=== PATIENT | female | born 1965 | race Caucasian/White ===

== ENCOUNTER → 2021-12-20 14:55 | Outpatient (CLI) | payer BC, SELFPAY ==
--- NOTE | 2021-12-20 15:00 | XR_ITS ---
FINAL REPORT CLINICAL HISTORY: R Foot pain, lateral side starting at calcaneus radiating upward toward tibia. FINDINGS: RIGHT FOOT Three views of the right foot demonstrate no acute fracture or dislocation. There is mild degenerative change. There are calcaneal spurs. The soft tissues are unremarkable. IMPRESSION: Degenerative change with no acute bony abnormality. Reviewed, Interpreted and Dictated by Chriss Issa III, MD Transcribed by Nikki Peterson Authenticated and [facility]
--- NOTE | 2021-12-20 15:00 | XR_ITS ---
FINAL REPORT CLINICAL HISTORY: R Foot pain, lateral side starting at calcaneus radiating upward toward tibia. FINDINGS: RIGHT ANKLE Three views of the right ankle were obtained. There is no acute fracture or dislocation. There is mild degenerative change. There is a chronic calcification inferior to the medial malleolus. There are calcaneal spurs. IMPRESSION: Degenerative change with no acute bony abnormality. Reviewed, Interpreted and Dictated by Chriss Issa III, MD Transcribed by Nikki Peterson Authenticated and [facility]
== END ==
PROVIDERS: PCP Family Medicine; Visit Provider Nurse Practitioner Family
DX: M79.671 Pain in right foot (principal); M25.571 Pain in right ankle and joints of right foot
CPT/HCPCS: 73610; 73630

== ENCOUNTER → 2022-03-22 17:08 | Outpatient (CLI) | payer BC, SELFPAY ==
[2022-03-22 16:01] LABS: MANUAL DIFFERENTIAL MANUAL DIFFERENTIAL (MANUAL DIFF)
[2022-03-22 16:12] LABS: Basophils # 0.1 K/mm3 (0-0.2); Basophils % 0.9 % (0.1-2.0); Eosinophils # 0.2 K/mm3 (0.0-0.4); Eosinophils % 2.9 % (0.1-12.0); Hematocrit 36.2 % (37.0-47.0); Hemoglobin 11.8 g/dL (12.2-16.2); Lymphocytes # 2.1 K/mm3 (0.7-4.5); Lymphocytes % 37.2 % (10-50); Mean Corpuscular HGB Conc 32.6 g/dL (31.8-35.4); Mean Corpuscular Hemoglobin 25.2 pg (27.0-31.2); Mean Corpuscular Volume 77.5 fl (81-99); Mean Platelet Volume 9.4 fl (7.4-10.4); Monocytes # 0.3 K/mm3 (0.1-1.0); Monocytes % 5.5 % (1.7-9.3); Neutrophils # 3.1 K/mm3 (1.8-7.8); Neutrophils % 53.6 % (37.0-80.0); Platelet Count 338 K/mm3 (142-424); Red Blood Count 4.67 M/mm3 (4.20-5.40); Red Cell Distribution Width 15.3 % (11.5-17.5); White Blood Count 5.7 K/mm3 (4.8-10.8)
[2022-03-22 16:32] LABS: Potassium 4.2 mmoL/L (3.5-5.1)
[2022-03-22 16:34] LABS: Alanine Aminotransferase 37 U/L (12-78); Alkaline Phosphatase 78 U/L (38-126); Aspartate Amino Transferase 39 U/L (14-36); Bilirubin,Total 0.2 mg/dl (0.2-1.3); Blood Urea Nitrogen 12 mg/dl (7-17); Carbon Dioxide 29 mmol/L (22.0-30.0); Cholesterol 170 mg/dl (140-200); Estimated Glomerular Filt Rate 86 ml/min (>60); GFR (African American) 104 ML/MIN (>60); Triglycerides 108 mg/dl (30-150); VLDL Cholesterol 22 mg/dL (0-40)
[2022-03-22 16:35] LABS: Albumin Level 4.5 g/dl (3.5-5.0); Albumin/Globulin Ratio 1.9 (1.1-1.8); Calcium 8.8 mg/dl (8.4-10.2); Chol/HDL Ratio 3.1 (1-3.5); Globulin 2.4 g/dL (1.3-3.2); Glucose 110 mg/dl (74-100); HDL Cholesterol 55 mg/dl (40-60); Total Protein,Serum 6.9 g/dl (6.3-8.2)
[2022-03-22 16:46] LABS: Direct LDL Cholesterol 89.36 mg/dL (100-129)
[2022-03-22 17:50] LABS: Anion Gap 11.2 mEq/L (5-15); Chloride 104 mmol/L (98-107); Sodium 140 mmol/L (136-145)
[2022-03-22 19:32] LABS: Eosinophils % 1 % (0-3); Lymphocytes % 42 % (10-50); Microcytosis 1+; Monocytes % 3 % (2-9); Neutrophils % 54 % (42-76); Total Cells Counted 100
[2022-03-22 19:33] LABS: Burr Cells 1+; Ovalocytes 1+
[2022-03-22 19:34] LABS: Platelet Estimate Normal
== END ==
PROVIDERS: PCP Family Medicine; Visit Provider Family Medicine
DX: E78.5 Hyperlipidemia, unspecified (principal); R73.03 Prediabetes
CPT/HCPCS: 80053; 80061; 83036; 84443; 85007; 85014; 85018; 85048; 85049

== ENCOUNTER → 2022-05-25 11:17 | Outpatient (CLI) | payer BC, SELFPAY ==
--- NOTE | 2022-05-25 11:23 | XR_ITS ---
FINAL REPORT TECHNIQUE: Chest PA & Lateral CLINICAL HISTORY: lingering cough FINDINGS: 2 views of the chest were performed. The heart size is normal. The mediastinum is within normal limits. There is no acute cardiopulmonary process. There are no pleural effusions. There is no pneumothorax. The bony thorax appears intact. IMPRESSION: No acute cardiopulmonary process. Reviewed, Interpreted and Dictated by Stu Joyner MD Transcribed by JANELL Solis Authenticated and . [facility]
== END ==
PROVIDERS: PCP Family Medicine; Visit Provider Student in an Organized Health Care Education/Training Program
DX: R05.9 Cough, unspecified (principal)
CPT/HCPCS: 71046

== ENCOUNTER 2022-06-26 08:23 | Day surgery (SDC) | payer BC, SELFPAY ==
[2022-06-25 14:12] VITALS: BMI 35.2
[2022-06-26 08:45] VITALS: BP 147/64; PULSE 80; RESP 16; TEMP 36.1; O2SAT 99
--- NOTE | 2022-06-26 08:55 | P.PCN_ITS ---
Procedure: Date: 06/26/22 Patient Date of :: 1965 Procedure Performed:: Colonoscopy with polypectomy Indications:: History of colon polyps Performing Provider:: Kasi Low MD Referring Provider:: . Sedation:: Monitored anesthesia care Procedure:: After informed consent was obtained the patient was taken to the endoscopy suite. Sedation ensued after the patient was transferred to the left lateral d ecubitus position. Pulse, blood pressure, and oxygen saturation were monitored throughout the procedure. Digital rectal exam revealed no significant abnormality. The colonoscope was placed in position. The entire colon was evaluated. The colonoscope was carefully removed and the patient was transferred to recovery in stable condition. Please see findings and specimens below for detail. Findings:: Bowel preparation fair to moderate Significant tortuosity (particularly sigmoid) Profound lack of relaxation Mild scattered diverticulosis Polyps (see specimens) Specimens:: Adjacent periappendiceal polyps (cold biopsy forceps) Transverse colon polyp (cold snare) Recommendations:: Timing of repeat colonoscopy is pending pathology but will likely be between 2-3 years. Complications:: No immediate Estimated blood obtained (mL): 1
[2022-06-26 09:00] LABS: POC Glucose,Bedside 101 (70-110)
[2022-06-26 09:05] VITALS: O2SAT 99
--- NOTE | 2022-06-26 09:06 | P.PN_ITS ---
[facility] Disclaimer: The information contained in this section may have been updated after the patient was seen, as this information can be updated by other users. Medical History Hyperlipidemia Hypertension Surgical History History of bilateral breast reduction surgery History of cholecystectomy History of hysterectomy Family History Father Family history of myocardial infarction Social History Smoking Status: Former smoker alcohol intake: former substance use type: denies use current occupational status: employed Travel in the last 8 weeks: None [facility] Anesthesia Checklist Patient Identification Patient Identification: Arm Band Structural Data Admitted From: Home Planned Operative Procedure/s: Colonoscopy Consent for Planned Operative Procedure(s) Verified: Yes Verified Documents: Surgical Consent and History and Physical NPO Status Verified Time NPO: 00:00 Additional verifications Anesthesia Reactions: No Airway Assessment C-Spine Mobility Assessed: Yes TMJ Mobility Assessed: Yes Dentition: Good Dentition Neurological Assessment Level of Consciousness: Awake and Alert Anesthesia Plan Anesthesia Risk discussed: Yes Anesthesia Plan: Verified ASA Class: II Anesthesia Type: MAC
[2022-06-26 09:58] VITALS: BP 113/73; PULSE 82; RESP 16; TEMP 36.1; O2SAT 97
[2022-06-26 10:08] VITALS: BP 127/69; PULSE 76; RESP 17; O2SAT 100
[2022-06-26 10:18] VITALS: BP 130/69; PULSE 70; RESP 16; O2SAT 100
[2022-06-26 10:33] VITALS: BP 130/69; PULSE 70; RESP 16; O2SAT 100
== END 2022-06-26 10:33 | disposition home or self-care (01) ==
PROVIDERS: PCP Family Medicine; Visit Provider Surgery
PROC: 0DJD8ZZ Inspection of Lower Intestinal Tract, Via Natural or Artificial Opening Endoscopic (ICD-10-PCS; CPT 45385; principal; 2022-06-26 09:30)
DX: Z12.11 Encounter for screening for malignant neoplasm of colon (principal); D12.0 Benign neoplasm of cecum; Z86.010 Personal history of colon polyps; K57.90 Diverticulosis of intestine, part unspecified, without perforation or abscess without bleeding; Z79.899 Other long term (current) drug therapy
CPT/HCPCS: 45385; 45380; 82962; 88305; J2704

== ENCOUNTER → 2023-04-29 11:56 | Outpatient (CLI) | payer BC, SELFPAY ==
[2023-04-29 19:07] LABS: Alanine Aminotransferase 50 U/L (12-78); Albumin Level 4.3 g/dl (3.5-5.0); Alkaline Phosphatase 69 U/L (38-126); Anion Gap 14.1 mEq/L (5-15); Aspartate Amino Transferase 36 U/L (14-36); Bilirubin,Total 0.3 mg/dl (0.2-1.3); Blood Urea Nitrogen 12 mg/dl (7-17); Calcium 9.1 mg/dl (8.4-10.2); Carbon Dioxide 28 mmol/L (22.0-30.0); Chloride 101 mmol/L (98-107); Chol/HDL Ratio 4.4 (1-3.5); Cholesterol 136 mg/dl (140-200); Estimated Glomerular Filt Rate 64 ml/min (>60); GFR (African American) 78 ML/MIN (>60); Globulin 2.2 g/dL (1.3-3.2); Glucose 93 mg/dl (74-100); HDL Cholesterol 31 mg/dl (40-60); Potassium 4.1 mmoL/L (3.5-5.1); Sodium 139 mmol/L (136-145); Total Protein,Serum 6.5 g/dl (6.3-8.2); Triglycerides 151 mg/dl (30-150); VLDL Cholesterol 30 mg/dL (0-40)
[2023-04-29 19:16] LABS: Hemoglobin A1C 5.8 % (4.0-6.0)
[2023-04-29 19:38] LABS: Basophils % 0.4 % (0.1-2.0); Eosinophils # 0.2 K/mm3 (0.0-0.4); Eosinophils % 2.2 % (0.1-12.0); Hematocrit 37.8 % (37.0-47.0); Hemoglobin 12.6 g/dL (12.2-16.2); Lymphocytes # 2.2 K/mm3 (0.7-4.5); Lymphocytes % 33.3 % (10-50); Mean Corpuscular HGB Conc 33.3 g/dL (31.8-35.4); Mean Corpuscular Hemoglobin 26.5 pg (27.0-31.2); Mean Corpuscular Volume 79.7 fl (81-99); Mean Platelet Volume 9.9 fl (7.4-10.4); Monocytes # 0.3 K/mm3 (0.1-1.0); Monocytes % 4.8 % (1.7-9.3); Neutrophils % 59.4 % (37.0-80.0); Platelet Count 283 K/mm3 (142-424); Red Blood Count 4.74 M/mm3 (4.20-5.40); Red Cell Distribution Width 14.7 % (11.5-17.5); White Blood Count 6.7 K/mm3 (4.8-10.8)
[2023-04-29 20:18] LABS: Direct LDL Cholesterol 84.44 mg/dL (100-129)
== END ==
PROVIDERS: PCP Family Medicine; Visit Provider Family Medicine
DX: E11.9 Type 2 diabetes mellitus without complications (principal); Z79.84 Long term (current) use of oral hypoglycemic drugs; Z79.899 Other long term (current) drug therapy
CPT/HCPCS: 80053; 80061; 83036; 85025

== ENCOUNTER 2023-08-29 13:05 | Outpatient (CLI) | payer BC, SELFPAY ==
[2023-08-29 13:12] VITALS: BMI 27.9
[2023-08-29 13:17] VITALS: BP 132/92; PULSE 70; RESP 18; TEMP 36.7; O2SAT 100
[2023-08-29] MEDS: 0.9 % SODIUM CHLORIDE 1000ML 1,000 ML 999 ML IV ×2 (13:17→14:29)
[2023-08-29] MEDS: SODIUM CHLORIDE 0.9% 10ML FLUSH SYRINGE 10 ML IV (13:25)
[2023-08-29 13:41] LABS: Alanine Aminotransferase 80 U/L (12-78); Albumin Level 4.5 g/dl (3.5-5.0); Albumin/Globulin Ratio 1.8 (1.1-1.8); Alkaline Phosphatase 74 U/L (38-126); Anion Gap 9.5 mEq/L (5-15); Aspartate Amino Transferase 33 U/L (14-36); Bilirubin,Total 0.6 mg/dl (0.2-1.3); Blood Urea Nitrogen 11 mg/dl (7-17); Calcium 9.4 mg/dl (8.4-10.2); Carbon Dioxide 31 mmol/L (22.0-30.0); Chloride 102 mmol/L (98-107); Creatinine Clearance Estimated 90 mL/min (50-200); Estimated Glomerular Filt Rate 64 ml/min (>60); GFR (African American) 78 ML/MIN (>60); Globulin 2.5 g/dL (1.3-3.2); Glucose 85 mg/dl (74-100); Potassium 3.5 mmoL/L (3.5-5.1); Sodium 139 mmol/L (136-145)
[2023-08-29 14:29] VITALS: BP 128/89; PULSE 71; RESP 18; O2SAT 99
[2023-08-29 15:32] VITALS: BP 122/87; PULSE 72; RESP 18; O2SAT 100
== END 2023-08-29 15:32 | disposition home or self-care (01) ==
LOC: INF 13:07
PROVIDERS: PCP Family Medicine; Visit Provider Family Medicine
DX: E86.0 Dehydration; R11.10 Vomiting, unspecified
CPT/HCPCS: 80053; 96360; 96361

== ENCOUNTER 2023-10-11 07:54 | Outpatient (CLI) | payer BC, SELFPAY ==
--- NOTE | 2023-10-11 08:27 | MR_ITS ---
FINAL REPORT CLINICAL HISTORY: Dileneate Adrenal LEFT 17 ML PROHANCE FINDINGS: Multiplanar MR imaging of the abdomen was performed without and with contrast. Images of the liver reveal no evidence of mass. There is no evidence of biliary ductal dilatation. The patient is status post cholecystectomy. The adrenal glands are visualized and have an unremarkable appearance. No adrenal mass is seen. No other mass or adenopathy is identified. No abnormal fluid collection is seen. No abnormal contrast enhancement is seen on the postcontrast images. IMPRESSION: No mass or abnormal contrast enhancement identified. Adrenal glands are identified and have an unremarkable appearance. Reviewed, Interpreted and Dictated by Chirss Issa III, MD Transcribed by Rhonda Kaufman Authenticated and [facility]
[2023-10-11 08:35] LABS: Blood Urea Nitrogen 13 mg/dl (7-17); Estimated Glomerular Filt Rate 64 ml/min (>60); GFR (African American) 78 ML/MIN (>60)
[2023-10-11] MEDS: GADOTERIDOL INJ 17ML SYRINGE 17 ML IV (09:40)
[2023-10-11] MEDS: 0.9 % SODIUM CHLORIDE 50 ML VIAL 20 ML IV (09:40)
[2023-10-11] MEDS: SODIUM CHLORIDE 0.9% 10ML SYR (RAD ONLY) 10 ML IV (09:40)
== END 2023-10-11 23:59 ==
LOC: RAD 07:55
PROVIDERS: PCP Family Medicine; Visit Provider Family Medicine
DX: R10.9 Unspecified abdominal pain (principal); E27.9 Disorder of adrenal gland, unspecified
CPT/HCPCS: 36415; 74183; 82565; 84520; A9576

== ENCOUNTER 2023-12-15 14:50 | Emergency (ER) | payer BC, SELFPAY ==
[2023-12-15 16:30] VITALS: BP 152/75; PULSE 65; RESP 18; TEMP 36.5; O2SAT 100; BMI 26.9
--- NOTE | 2023-12-15 16:44 | ED_ITS ---
Discharge Plan Disposition Patient Disposition: Home, Self-Care Condition: Good Prescriptions Prescriptions: No Action methocarbamol 750 mg tablet 750 mg PO TID Qty: 90 10RF Ozempic 2 mg/dose (8 mg/3 mL) pen injector 2 mg SQ DAILY Patient Comments: Inject 2 mg under the skin once a week. (DME) lancets [OneTouch Delica Plus Lancet] 33 gauge misc See Rx Instructions .ROUTE .MEDSUPPLY Qty: 100 Rx Instructions: As directed (DME) OneTouch Verio test strips Strip See Rx Instructions .ROUTE .MEDSUPPLY Qty: 10 Rx Instructions: As directed spironolactone 25 mg tablet 25 mg PO DAILY ondansetron HCl 4 mg tablet 4 mg PO TID PRN (Reason: nausea and vomiting) Qty: 90 3RF valacyclovir [Valtrex] 1 gram tablet 1,000 mg PO BID Qty: 60 2RF atorvastatin [Lipitor] 20 mg tablet 20 mg PO DAILY Qty: 90 1RF losartan 100 mg tablet See Rx Instructions .ROUTE .COMPLEX Qty: 90 3RF Dose Instruction: TAKE 1 TABLET DAILY Rx Instructions: TAKE 1 TABLET DAILY amlodipine 10 mg tablet See Rx Instructions .ROUTE .COMPLEX Qty: 90 3RF Dose Instruction: TAKE 1 TABLET DAILY Rx Instructions: TAKE 1 TABLET DAILY pantoprazole [Protonix] 40 mg tablet,delayed release (DR/EC) 40 mg PO BID Qty: 60 3RF prochlorperazine maleate [Compazine] 10 mg tablet 10 mg PO TID PRN (Reason: nausea and vomiting) Qty: 60 0RF duloxetine [Cymbalta] 60 mg capsule,delayed release(DR/EC) 60 mg PO DAILY Qty: 90 0RF metformin 500 mg tablet 500 mg PO BID trazodone 150 mg tablet 150 mg PO DAILY omeprazole 20 mg capsule,delayed release(DR/EC) 20 mg PO DAILY Referrals Follow up/Referrals: Tony Roberts MD [Primary Care Provider] - See instructions Activity Restrictions/Add. Instructions Additional Instructions/Restrictions: Monitor temperature. Seek treatment if fever develops. Follow-up immediately if new or worse symptoms worsen or no noticeable improvement over 48 hours. Increase fluids such as water, Gatorade, Powerade, juice or Pedialyte with limited formula/dietary in children No food is okay as long as you are drinking. Once ready to eat start bland such as bananas, rice, applesauce, toast. Contagious until no diarrhea, vomiting, fever times 48 hours without medication Avoid antidiarrheals unless told otherwise. Best to let the virus run its course. Follow-up immediately for new or worsening symptoms or no noticeable improvement over the next 48 hours. follow up with pcp Clinical Impressions Clinical Impression: Abdominal pain, Dehydration Instructions Patient Instructions: Nausea and Vomiting-Adult, Diarrhea Discharge ED Provider: Pebbles ([facility] [place] HPI General Stated complaint: vomiting, abd pain Mode of Arrival: Ambulatory Source of Information: Patient Limitations: No Limitations Time Seen by Provider: 12/15/23 16:44 Description of Symptoms (Recalled from Triage Doc. by RN): Pt's symptoms are diarrhea, n/v, fatigue, and no appetite. HEENT Symptoms (Recalled from RN notes): No Resp Symptoms (Recalled from RN notes): No Skin Symptoms (Recalled from RN notes): No MS Symptoms (Recalled from RN notes): No Functional Status (Recalled from RN notes): n/a History of Present Illness Provider Complaint: 58 yr old female presents for c/o diarrhea, n/v, fatigue, and no appetite for 10 days. pt states she has been able to keep very little down. has been exposed to c diff Related Data Home Medications Medication Instructions Recorded Confirmed metformin 500 mg tablet 500 mg PO BID Diabetes 06/25/22 11/06/23 omeprazole 20 mg capsule,delayed 20 mg PO DAILY GERD 06/25/22 11/06/23 release trazodone 150 mg tablet 150 mg PO DAILY sleep 06/25/22 11/06/23 blood sugar diagnostic (OneTouch #10 ea 04/29/23 11/06/23 Verio test strips) lancets 33 gauge (OneTouch Delica #100 ea 04/29/23 11/06/23 Plus Lancet) semaglutide 2 mg/dose (8 mg/3 mL) 2 mg SQ DAILY Diabetes 04/29/23 11/06/23 subcutaneous pen injector (Ozempic) spironolactone 25 mg tablet 25 mg PO DAILY blood pressure 04/29/23 11/06/23 Previous Rx's Medication Instructions Recorded methocarbamol 750 mg tablet 750 mg PO TID #90 tabs 11/12/22 ondansetron HCl 4 mg tablet 4 mg PO TID PRN nausea and 04/29/23 vomiting #90 tabs valacyclovir 1 gram tablet 1,000 mg PO BID #60 tabs 04/29/23 (Valtrex) amlodipine 10 mg tablet See Rx Instructions .Route 08/07/23 .COMPLEX #90 tabs losartan 100 mg tablet See Rx Instructions .Route 08/07/23 .COMPLEX #90 tabs pantoprazole 40 mg tablet,delayed 40 mg PO BID #60 tabs 08/30/23 release (Protonix) prochlorperazine maleate 10 mg 10 mg PO TID PRN nausea and 08/30/23 tablet (Compazine) vomiting #60 tabs atorvastatin 20 mg tablet (Lipitor) 20 mg PO DAILY hld #90 tabs 11/06/23 duloxetine 60 mg capsule,delayed 60 mg PO DAILY mood #90 caps 12/10/23 release (Cymbalta) Allergies Allergy/AdvReac Type Severity Reaction Status Date / Time No Known Allergies Allergy Verified 12/15/23 16:41 Worker's Comp Is this a Worker's Comp case?: No [facility] Disclaimer: The information contained in this section may have been updated after the patient was seen, as this information can be updated by other users. 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) Smoking Status: Former smoker alcohol intake: former substance use type: denies use current occupational status: employed Travel in the last 8 weeks: Inside the [place] ROS Obtained: Yes All systems reviewed & no additional complaints except as documented Constitutional Constitutional: Reports system reviewed and no additional complaints, except as documented, Reports as per HPI and Reports anorexia Eyes Eyes: Reports system reviewed and no additional complaints, except as documented ENT Ears, Nose, Mouth, and Throat: Reports system reviewed and no additional complaints, except as documented Cardiovascular Cardiovascular: Reports system reviewed and no additional complaints, except as documented Respiratory Respiratory: Reports system reviewed and no additional complaints, except as documented Gastrointestinal Gastrointestingal: Reports system reviewed and no additional complaints, except as documented, as per HPI, change in bowel habits, diarrhea, nausea and vomiting Musculoskeletal Musculoskeletal: Reports system reviewed and no additional complaints, except as documented Integumentary/Breasts Skin/Breast: Reports system reviewed and no additional complaints, except as documented Neurologic Neurologic: Reports system reviewed and no additional complaints, except as documented Endocrine Endocrine: Reports system reviewed and no additional complaints, except as documented Hematologic/Lymphatic Henatologic/Lymphatic: Reports system reviewed and no additional complaints, except as documented Allergic/Immunologic Allergic/Immunologic: Reports system reviewed and no additional complaints, except as documented Physical Exam General General appearance: alert and in no apparent distress Eye Eye exam: Present normal appearance and PERRL ENT ENT exam: Present normal exam, normal oropharynx, mucous membranes moist and TM's normal bilaterally Chest Chest inspection: Present normal inspection Respiratory Respiratory exam: Present normal lung sounds bilaterally Cardiovascular Cardiovascular exam: Present regular rate and normal rhythm Abdominal Exam Abdominal exam: Present soft and normal bowel sounds; Absent distention, tenderness, guarding or rebound Neurological Exam Neurological exam: Present alert and oriented X3 Skin Skin exam: Present warm and intact Medical Decision Making Medical Records Medical records reviewed: Yes I reviewed the patient's medical records. Joseph Inquiry Pt receiving controlled substance: No Joseph was queried for this patient: No Vital Signs: 12/15/23 16:30 Temperature 97.7 F Temperature Source Oral Pulse Rate [Right Radial] 65 Respiratory Rate 18 Blood Pressure [Right Arm] 152/75 H Blood Pressure Mean [Right Arm] 100 Blood Pressure Source [Right Arm] Automatic Cuff Blood Pressure Position [Right Arm] Sitting 02 Sat by Pulse Oximetry 100 Oxygen Delivery Method Room Air Lab Data 12/15/23 16:40 12/15/23 16:40 Orders (Tests/Meds): ORDERS Category Date Time Status CBC w/Auto Diff [Complete Blood Count Auto Diff] Stat Lab 12/15/23 16:40 Ordered CMP [Comprehensive Metabolic Panel] Stat Lab 12/15/23 16:40 Ordered Diarrhea 23 Panel, PCR Stat Lab 12/15/23 16:40 Ordered
[2023-12-15 16:58] LABS: Basophils # 0.1 K/mm3 (0-0.2); Basophils % 1.1 % (0.1-2.0); Eosinophils # 0.2 K/mm3 (0.0-0.4); Eosinophils % 2.6 % (0.1-12.0); Hematocrit 38.2 % (37.0-47.0); Hemoglobin 12.8 g/dL (12.2-16.2); Lymphocytes # 2.2 K/mm3 (0.7-4.5); Lymphocytes % 32.4 % (10-50); Mean Corpuscular HGB Conc 33.6 g/dL (31.8-35.4); Mean Corpuscular Hemoglobin 26.6 pg (27.0-31.2); Mean Corpuscular Volume 79.3 fl (81-99); Mean Platelet Volume 8.7 fl (7.4-10.4); Monocytes # 0.4 K/mm3 (0.1-1.0); Monocytes % 5.7 % (1.7-9.3); Neutrophils % 58.2 % (37.0-80.0); Platelet Count 265 K/mm3 (142-424); Red Blood Count 4.82 M/mm3 (4.20-5.40); Red Cell Distribution Width 14.5 % (11.5-17.5); White Blood Count 6.8 K/mm3 (4.8-10.8)
[2023-12-15] MEDS: SODIUM CHLORIDE 0.9% 10ML FLUSH SYRINGE 10 ML IV (17:00)
[2023-12-15] MEDS: 0.9 % SODIUM CHLORIDE 1000ML 1,000 ML 999 ML IV (17:00)
[2023-12-15 17:02] LABS: Chloride 100 mmol/L (98-107); Potassium 3.9 mmoL/L (3.5-5.1); Sodium 136 mmol/L (136-145)
[2023-12-15] MEDS: ONDANSETRON 4MG/2ML VIAL 4 MG IV (17:02)
[2023-12-15 17:04] LABS: Alanine Aminotransferase 245 U/L (12-78); Aspartate Amino Transferase 95 U/L (14-36); Blood Urea Nitrogen 13 mg/dl (7-17); Creatinine Clearance Estimated 70 mL/min (50-200); Estimated Glomerular Filt Rate 51 ml/min (>60); GFR (African American) 62 ML/MIN (>60)
[2023-12-15 17:04] LABS: Adenovirus F 40/41, stool Not Detected (NotDetected); Astrovirus Not Detected (NotDetected); Campylobacter Not Detected (NotDetected); Clostridium Difficile A/B, PCR Not Detected (NotDetected); Cryptosporidium Not Detected (NotDetected); Cyclospora Cayetanesis Not Detected (NotDetected); Entamoeba histolytica Not Detected (NotDetected); Enteroaggregative E coli Not Detected (NotDetected); Enteropathogenic E coli Not Detected (NotDetected); Enterotoxigenic E coli Not Detected (NotDetected); Giardia lamblia Not Detected (NotDetected); Norovirus Not Detected (NotDetected); Plesimonas Shigalloides, PCR Not Detected (NotDetected); Rotavirus A Not Detected (NotDetected); Salmonella, PCR Not Detected (NotDetected); Sapovirus Not Detected (NotDetected); Shiga-like toxin E coli Not Detected (NotDetected); Shigella Enterovasive E coli Not Detected (NotDetected); Vibrio Cholerae Not Detected (NotDetected); Vibrio, PCR Not Detected (NotDetected); Yersinia Entercolitica, PCR Not Detected (NotDetected)
[2023-12-15 17:05] LABS: Albumin Level 4.2 g/dl (3.5-5.0); Albumin/Globulin Ratio 1.6 (1.1-1.8); Alkaline Phosphatase 133 U/L (38-126); Anion Gap 8.9 mEq/L (5-15); Bilirubin,Total 0.5 mg/dl (0.2-1.3); Calcium 9.4 mg/dl (8.4-10.2); Carbon Dioxide 31 mmol/L (22.0-30.0); Globulin 2.7 g/dL (1.3-3.2); Glucose 91 mg/dl (74-100); Total Protein,Serum 6.9 g/dl (6.3-8.2)
[2023-12-15 18:34] VITALS: BP 152/75; PULSE 65; RESP 18; TEMP 36.5; O2SAT 100
== END 2023-12-15 18:44 | disposition home or self-care (01) ==
PROVIDERS: Emergency Provider Nurse Practitioner Family; PCP Family Medicine
DX: R10.84 Generalized abdominal pain (principal); E86.0 Dehydration; R11.2 Nausea with vomiting, unspecified; R19.7 Diarrhea, unspecified; R53.83 Other fatigue
CPT/HCPCS: 80053; 85025; 87507; 96360; 96374; 99204; 99212; G0463; J2405

== ENCOUNTER 2023-12-17 09:17 | Outpatient (CLI) | payer BC, SELFPAY ==
[2023-12-17 18:48] LABS: Chloride 99 mmol/L (98-107); Potassium 4.3 mmoL/L (3.5-5.1)
[2023-12-17 18:52] LABS: Glucose 90 mg/dl (74-100)
[2023-12-17 18:53] LABS: Anion Gap 11.3 mEq/L (5-15); Blood Urea Nitrogen 11 mg/dl (7-17); Calcium 9.3 mg/dl (8.4-10.2); Carbon Dioxide 31 mmol/L (22.0-30.0); Estimated Glomerular Filt Rate 64 ml/min (>60); GFR (African American) 78 ML/MIN (>60); Sodium 137 mmol/L (136-145)
[2023-12-19 10:13] LABS: HBsAg Screen Negative (Negative); HCV Ab Non Reactive (Non Reactive); Hep A Ab, IGM Negative (Negative); Hep B Core Ab, IgM Negative (Negative)
== END 2023-12-17 23:59 | disposition home or self-care (01) ==
LOC: LAB.DROPOF 12-18 09:17
PROVIDERS: PCP Nurse Practitioner; Visit Provider Nurse Practitioner
DX: R11.2 Nausea with vomiting, unspecified (principal); R79.89 Other specified abnormal findings of blood chemistry
CPT/HCPCS: 80048; 80074

== ENCOUNTER 2025-05-09 19:01 | Emergency (ER) | payer BC, SELFPAY ==
--- OUTSIDE RECORDS SUMMARY | 2025-03-10 09:30 | XMS_ITS | Encounter Summary ---
Author Organization [facility] Address [address] [place] [phone] Care Team Providers Care Vest Busheler Name Role Phone Tony Roberts MD Primary Care Provider [phone] Reason for Referral * Physical Therapy (Routine) - Pending Review Specialty Diagnoses / Procedures Referred By Cornelia ambriz Referred To Contact Physical Therapy Diagnoses Dizziness Joseph Mccoy MD [address] [place] [address] [facility] [place] [address] Phone: tel: fax: Cory Overton PT Referral ID Status Reason Start Date Expiration Date V isits Requested Visits Authorized [id number] Pending Review 03/10/2025 03/10/2026 1 1 Question Answer Reason for Physical Therapy Evaluate and Treat * MRI/CAT Scan (Routine) - Closed Specialty Diagnoses / Procedures Referred By Contac t Referred To Contact Radiology Diagnoses Mixed conductive and sensorineural hearing loss of right ear with restricted hearing of left ear Procedures CT TEMPORAL BONES IACS WO CONTRAST Joseph Mccoy MD [address] [place] [address] [facility] [place] [address] Phone: tel: fax: Referral ID Status Reason Start Date Expiration Date Visits Re quested Visits Authorized [id number] Closed 03/10/2025 03/10/2026 1 1 Reason for Visit * Reason Comments Follow-up Encounter Details Date Type Department Care Team (Latest Contact Info) Description 03/10/2025 10:30 AM EDT Office Visit [facility] [address] [place] [address] Joseph Mccoy MD 40 [facility] 101 [facility] [place] [address] Mixed conductive and sensorineural hearing loss of right ear with restricted hearing of left ear (Primary Dx); Sensorineural hearing loss (SNHL) of left ear with restricted hearing of right ear; Tinnitus of both ears; ETD (Eustachian tube dysfunction), right; Dizziness Social History Tobacco Use Types Packs/Day Years Used Date Smoking Tobacco: Former Cigarettes 1 44.8 S tarted: 07/08/1980 Passive Smoke Exposure: Never Smokeless Tobacco: Never Comments:nicorrete gum Alcohol Use Standard Drinks/Week Comments Never 0 (1 standard drink = 0.6 oz pur e alcohol) Sexually Active Control Partners Comments Yes Surgical Male Comments No Sex and Gender Information Value Date Recorded Sex Assigned at Not on file Legal Sex Female 3:47 PM EDT Gender Identity Not on file Sexual Orientation Not on file documented as of this encounter Last Filed Vital Signs Vital Sign Reading Time Taken Comments Blood Pressure - - Pulse - - Temperature 37 C (98.6 F) 03/10/2025 10:43 AM EDT Respiratory Rate - - Oxygen Saturation - - Inhaled Oxygen Concentration - - Weight 84.4 kg (186 lb) 03/10/2025 10:43 AM EDT Height 172.7 cm (5' 8 ) 03/10/2025 10:43 AM EDT Body Mass Index 28.28 03/10/2025 10:43 AM EDT documented in this encounter Progress Notes * Joseph Mccoy MD - 03/10/2025 10:30 AM EDT Images from the original note were not included. Roseanne Kuo 1965 59 y.o. female 03/10/2025 Established [facility], [facility] Referring Provider: No ref. provider found Chief Complaint Patient presents with Follow-up HPI Roseanne Kuo is a 59 y.o. female who is here to follow up regarding decreased hearing and tinnitus: ringing. The patient was last seen on 02/23/2025. Patient states since last visit symptoms are unchanged . Right ear: decreased hearing and tinnitus: ringing Left ear: decreased hearing and tinnitus: ringing Hearing loss most noticeable when: They are in conversation and have trouble understanding words and There is noise coming from several sources Tinnitus is most noticeable when: it is quiet Do loud noises cause ears any discomfort: no Wear hearing aids: No Current treatment: none Exposed to loud noises: no When exposed to loud noises, does the patient wear hearing protection? n/a Does the patient take Aspirin? No Is there a family history of hearing loss? yes Additional information: none Does the patient have any trouble with anesthesia? no Is there a family history of: Trouble with anesthesia? no Malignant Hyperthermia (high fever due to anesthesia)? no Pseudo cholinesterase deficiency (enzyme deficiency/very long time to wake from anesthesia)? no Has the patient tested positive for COVID-19 in the past 5 days? No Has the patient experienced any NEW onset: fever; cough; sore throat; vomiting; or diarrhea? No I, Dr.Nathan Mccoy, have personally reviewed all above HPI elements in person and have updated as needed. Medical History: Past Medical History: Diagnosis Date Arthritis Bladder infection, chronic Colon polyp Depression Diabetes mellitus (HCC) Elevated triglycerides with high cholesterol Hyperlipidemia Hypertension Post-operative nausea and vomiting Patient Active Problem List Diagnosis Date Noted Gastroesophageal reflux disease with esophagitis without hemorrhage 02/28/2024 History of colon polyps 02/28/2024 Diverticulosis 02/28/2024 Dyspepsia 11/15/2023 Obesity (BMI 30-39.9) 05/07/2023 Venous insufficiency of both lower extremities 05/07/2023 Iron deficiency anemia 05/07/2023 Type 2 diabetes mellitus with hyperglycemia, without long-term current use of insulin (HCC) 01/21/2023 Hypertension associated with type 2 diabetes mellitus (HCC) 01/21/2023 Hyperlipidemia associated with type 2 diabetes mellitus (HCC) 01/21/2023 Metabolic dysfunction-associated steatotic liver disease (MASLD) 01/21/2023 Cystocele with rectocele 02/20/2021 Added automatically from request for surgery [id number] TIA (transient ischemic attack) 06/23/2016 Congenital spondylolisthesis 10/25/2014 Current Outpatient Medications Medication Instructions amLODIPine (NORVASC) 10 mg, DAILY atorvastatin (LIPITOR) 20 mg, DAILY Blood Sugar Diagnostic (OrthodataTOUCH VERIO TEST STRIPS) Misc Strip 1 Strip, Misc.(Non-Drug; Combo Route), 2 TIMES DAILY, Use to check blood glucose 2 times daily. E11.65 Comp Stocking,Knee,Long,Medium Misc Misc Wear daily DULoxetine (CYMBALTA) 60 mg, DAILY fluticasone propionate (FLONASE) 50 mcg/actuation Nasl [place], Suspension 2 Sprays, Nasal, DAILY lancets ([employer]how DELICA PLUS LANCET) 33 gauge Misc Misc 1 Each, Misc.(Non-Drug; Combo Route), 2 TIMES DAILY, Use to check blood glucose 2 times daily. E11.65 losartan (COZAAR) 100 mg, DAILY ondansetron (ZOFRAN) 4 mg Oral Tablet TAKE 1 TABLET BY MOUTH 3 TIMES A DAY NEEDED FOR NAUSEA ANDVOMITING OZEMPIC 2 mg, Subcutaneous, WEEKLY pantoprazole (PROTONIX) 40 mg, Oral, 2 TIMES DAILY prochlorperazine (COMPAZINE) 10 mg valACYclovir (VALTREX) 1,000 mg, 2 TIMES DAILY No Known Allergies Past Surgical History: Procedure Laterality Date BREAST REDUCTION SURGERY Bilateral 2000 BREAST SURGERY reduction CHOLECYSTECTOMY FRACTURE SURGERY right ankle debridement HYSTERECTOMY RECTOCELE REPAIR N/A 04/03/2021 POSTERIOR REPAIR (RECTOCELE REPAIR; Surgeon: Tony Hansen MD; Location: [facility] OR; Service:Gynecology SPINAL FUSION WISDOM TOOTH EXTRACTION Social History Tobacco Use Smoking status: Former Current packs/day: 1.00 Average packs/day: 1 pack/day for 44.7 years (44.7 ttl pk-yrs) Types: Cigarettes Start date: 07/08/1980 Passive exposure: Never Smokeless tobacco: Never Tobacco comments: nicorrete gum Vaping Use Vaping status: Never Used Substance Use Topics Alcohol use: Never Drug use: Never Family History Problem Relation Age of Onset Diabetes Mother Hypertension Mother Heart Disease Father Hypertension Father ROS Positive: ENT; Decreased hearing, Noises in the ear Exam: Vitals: 03/10/25 1043 Temp: 98.6 ??F (37 ??C) Weight: 186 lb (84.4 kg) Height: 5' 8 (1.727 m) Body mass index is 28.28 kg/m??. General: -: well nourished, well developed, well groomed, age appropriate oral communication, normal voice sounds, no stridor Head and Face: -: no abnormalities of head and face, facial strength symmetrical Eyes: -: ocular mobility and gaze alignment normal wears glasses: Yes External Nose: -: Nasal dorsum grossly normal, without lesion Hearing: -: Clinical hearing thresholds-Normal Right Ear: -: Pre and post-auricular soft tissue and pinna normal, Right auricle, EAC and TM Normal Left Ear: -: Pre and post-auricular soft tissue and pinna normal, Left auricle, EAC and TM normal Respiratory: -: (no stridor) Neurological: -: Alert, appropriate and does not appear agitated, Oriented to time, place and person, Normal mood and affect Assessment and Plan: Diagnoses addressed this visit: 1. Mixed conductive and sensorineural hearing loss of right ear with restricted hearing of left earCT TEMPORAL BONES IACS WO CONTRAST 2. Sensorineural hearing loss (SNHL) of left ear with restricted hearing of right ear 3. Tinnitus of both ears 4. ETD (Eustachian tube dysfunction), right 5. Dizziness AMB REFERRAL TO PHYSICAL THERAPY Ms Kuo presented today to follow-up her right sided conductive hearing loss as well as dizziness. Unfortunately her symptoms have not improved. She continues to lateralize a 512 Hz tuning fork to the right. However air conduction is still greater than bone conduction on the right. I recommended proceeding with CT imaging of her temporal bones in order to better characterize the etiology of the conductive hearing loss. It is currently most consistent with otosclerosis. I also placed a referral to physical therapy for vestibular rehab. Return in about 3 weeks (around 03/31/2025) for FOLLOW UP TEST RESULTS. [facility] [address] [place] [facility] [place] [phone] This note may have been partially dictated using [employer] voice recognition software and may contain unintended error. documented in this encounter Miscellaneous Notes * Patient Instructions - Virgie Saleem RMA - 03/10/2025 10:30 AM EDT Please call our Central Scheduling department at to schedule your CT Cory Overton PT Physical therapist in [place], [place] Address: [address] [place] [address], [place] [address] . documented in this encounter Plan of Treatment Upcoming Encounters Date Type Department Care Team (Late st Contact Info) Description 05/13/2025 7:30 AM EST Hospital Encounter [facility] [address] [place] [address] Melvin Mitchell DPM [address] [address] Preop testing (Primary Dx) 05/13/2025 7:30 AM EST Anesthesia Event [facility] [address] [place] [address] Cheryl Cerda, LARGE ANIMAL HUSBANDRY TECHNICIAN [address] [place] [id number] 05/13/2025 7:30 AM EST - 05/13/2025 10:00 AM EST Surgery [facility] [address] [place] [address] Melvin Mitchell DPM [address] [address] BUNIONECTOMY DAQUAN 05/19/2025 11:00 AM EST Office Visit [facility] [place] [address] [place] [address] Melvin Mitchell DPM [address] [address] 06/24/2025 9:20 AM EST [facility] [address] [place] [address] Mechelle Glez, DO [address] [place] [id number] 08/25/2025 12:40 PM EST Office Visit [facility] [address] [place] [address] Lucille Basilio DO [address] [place] [address] Scheduled Procedures Name Priority Associated Diagnoses Date/Ti me BUNIONECTOMY DAQUAN Tailor's bunion of right foot Toe pain, right Hammer toe of right foot Chronic foot pain, right 05/13/2025 7:30 AM EST HAMMER TOE REPAIR Tailor's bunion of right foot Toe pain, right Hammer toe of right foot Chronic foot pain, right 05/13/2025 7:30 AM EST Scheduled Referrals Name Type Priority Associated Diagnoses Orde r Schedule AMB REFERRAL TO PHYSICAL THERAPY Outpatient Referral Routine Dizziness Ordered: 03/10/2025 documented as of this encounter Results * CT TEMPORAL BONES IACS WO CONTRAST (03/14/2025 2:18 PM EDT) Anatomical Region Laterality Modality Computed Tomogra phy 03/14/2025 2:18 PM EDT Impressions 03/15/2025 10:11 AM EDT 1. Unremarkable temporal bone CT. - Note: Radiology results need to be interpreted within a comprehensive clinical context. If you have questions about the radiology report, please contact the office of the ordering clinician. Narrative 03/15/2025 10:[address] TEMPORAL BONES IACS WO CONTRAST 03/14/2025 2:18 PM CLINICAL HISTORY: H90.I98-[id number] conductive and sensorineural hearing loss, unilateral, right ear with restricted hearing on the contralateral [id number]. COMPARISON: None. PROCEDURE COMMENTS: Multidetector CT scanning of the temporal bones with multiplanar reconstructions. Dose 1 : CT DLP Total : 283.72 mGycm DLP Spiral Max : 279.65 mGycm Maximum CTDI Vol : 38.38 mGy FINDINGS: LEFT temporal bone: Mastoid air cells and middle ear cavity are aerated. Tympanic membrane normal. Ossicular chain normal. Otic capsule structures normal. Internal auditory canal morphology normal. Visible posterior fossa structures unremarkable. RIGHT temporal bone: Mastoid air cells and middle ear cavity are aerated. Tympanic membrane normal. Ossicular chain normal. Otic capsule structures normal. Internal auditory canal morphology normal. Visible posterior fossa structures unremarkable. Other: No significant additional finding. Procedure Note Earl Alves, DO - 03/15/2025 CT TEMPORAL BONES IACS WO CONTRAST 03/14/2025 2:18 PM CLINICAL HISTORY: [id number].I65-[id number] conductive and sensorineural hearingloss, unilateral, right ear with restricted hearing on the contralateral [id number]. COMPARISON: None. PROCEDURE COMMENTS: Multidetector CT scanning of the temporal boneswith multiplanar reconstructions. Dose 1 : CT DLP Total : 283.72 mGycm DLP Spiral Max : 279.65 mGycm Maximum CTDI Vol : 38.38 mGy FINDINGS: LEFT temporal bone: Mastoid air cells and middle ear cavity are aerated. Tympanic membrane normal. Ossicular chain normal. Otic capsulestructures normal. Internal auditory canal morphology normal. Visible posteriorfossa structures unremarkable. RIGHT temporal bone: Mastoid air cells and middle ear cavity areaerated. Tympanic membrane normal. Ossicular chain normal. Otic capsulestructures normal. Internal auditory canal morphology normal. Visible posteriorfossa structures unremarkable. Other: No significant additional finding. IMPRESSION: 1. Unremarkable temporal bone CT. - Note: Radiology results need to be interpreted within a comprehensiveclinical context. If you have questions about the radiology report, please contactthe office of the ordering clinician. us Joseph Mccoy MD IMG CT ORDERABLES Final Resu lt documented in this encounter Visit Diagnoses Diagnosis Mixed conductive and sensorineural hearing loss of right ear with restricted hearing of left ear- Primary Sensorineural hearing loss (SNHL) of left ear with restricted hearing of right ear Tinnitus of both ears Unspecified tinnitus ETD (Eustachian tube dysfunction), right Dizziness Dizziness and giddiness Mixed conductive and sensorineural hearing loss of right ear with restricted hearing of left ear Preop testing- Primary Preoperative examination, unspecified Tailor's bunion of right foot Toe pain, right Pain in limb Hammer toe of right foot Chronic foot pain, right documented in this encounter Care Teams Vest Busheler Relationship Specialty Start Date End Date Tony Roberts MD PCP - General Family Medicine 04/04/21 documented as of this encounter
--- OUTSIDE RECORDS SUMMARY | 2025-03-14 13:00 | XMS_ITS | Encounter Summary ---
Author Organization [place] [address] Care Team Providers Care Field Professional Name Role Phone Tony Roberts MD Primary Care Provider [phone] Reason for Referral * MRI/CAT Scan (Routine) - Closed Specialty Diagnoses / Procedures Referred By Cornelia ambriz Referred To Contact Radiology Diagnoses Mixed conductive and sensorineural hearing loss of right ear with restricted hearing of left ear Procedures CT TEMPORAL BONES IACS WO CONTRAST Joseph Mccoy MD [address] [place] [address] [facility] [place] [address] Phone: tel: fax: Referral ID Status Reason Start Date Expiration Date Visits Re quested Visits Authorized [id number] Closed 03/10/2025 03/10/2026 1 1 Reason for Visit * MRI/CAT Scan (Routine) - Closed Specialty Diagnoses / Procedures Referred By Contac t Referred To Contact Radiology Diagnoses Mixed conductive and sensorineural hearing loss of right ear with restricted hearing of left ear Procedures CT TEMPORAL BONES IACS WO CONTRAST Joseph Mccoy MD [address] [place] [address] [facility] [place] [address] Phone: tel: fax: Referral ID Status Reason Start Date Expiration Date Visits Re quested Visits Authorized [id number] Closed 03/10/2025 03/10/2026 1 1 Encounter Details Date Type Department Care Team (Latest Contact Info) Description 03/14/2025 2:00 PM EDT - 03/14/2025 11:59 PM EDT Hospital Encounter [place] [facility] [address] [place] [address] Joseph Mccoy MD [address] [place] [address] [address] [facility] [place] [address] Mixed conductive and sensorineural hearing loss of right ear with restricted hearing of left ear Discharge Disposition: Home or Self Care Social History Tobacco Use Types Packs/Day Years [...] on file documented as of this encounter Medications at Time of Discharge amLODIPine (NORVASC) 10 mg Oral Tablet Take 10 mg by mouth daily. 11/05/2023 atorvastatin (LIPITOR) 20 mg Oral Tablet Take 20 mg by mouth daily. Blood Sugar Diagnostic (ONETOUCH VERIO TEST STRIPS) [facility] StripIndications:T ype 2 diabetes mellitus with hyperglycemia, without long-term current use of insulin ([facility]) 1 Strip by [facility].(Non-Drug; Combo Route) route 2 times daily. Use to check blood glucose 2 times daily. E11.65 100 Each 11 01/22/2023 Comp Stocking,Knee,Long ,Medium [facility] MiscIndications:Ve nous insufficiency of both lower extremities Wear daily 2 Each 5 05/07/2023 DULoxetine (CYMBALTA) 60 mg Oral Capsule, Delayed Release(E.C.) Take 60 mg by mouth daily. fluticasone propionate (FLONASE) 50 mcg/actuation Nasl [place], SuspensionIndicati ons:ETD (Eustachian tube dysfunction), right 2 Sprays by Nasal route daily. 1 Each 5 02/23/2025 lancets (ONETOUCH DELICA PLUS LANCET) 33 gauge [facility] MiscIndications:Ty pe 2 diabetes mellitus with hyperglycemia, without long-term current use of insulin (HCC) 1 Each by [facility].(Non-Drug; Combo Route) route 2 times daily. Use to check blood glucose 2 times daily. E11.65 100 Each 11 01/22/2023 losartan (COZAAR) 100 mg Oral Tablet Take 100 mg by mouth daily. ondansetron (ZOFRAN) 4 mg Oral Tablet TAKE 1 TABLET BY MOUTH 3 TIMES A DAY NEEDED FOR NAUSEA AND VOMITING 07/21/2024 pantoprazole (PROTONIX) 40 mg Oral Tablet, Delayed Release (E.C.) Take 1 Tablet by mouth 2 times daily. 180 Tablet 3 02/28/2024 prochlorperazine (COMPAZINE) 10 mg Oral Tablet 10 mg. 08/30/2023 valACYclovir (VALTREX) 1 gram Oral Tablet Take 1,000 mg by mouth 2 times daily. as needed zolpidem (AMBIEN) 10 mg Oral Tablet 03/03/2025 semaglutide (OZEMPIC) 2 mg/dose (8 mg/3 mL) SubQ Pen InjectorIndication s:Type 2 diabetes mellitus with hyperglycemia, without long-term current use of insulin (HCC) Subcutaneous (Inject under the skin) 2 mg once a week. 9 mL 3 10/14/2024 03/22/20 25 documented as of this encounter Discharge Disposition Disposition Code Departure Means Destination Home or Self Care documented in this encounter Plan of Treatment Upcoming Encounters Date Type Department Care Team (Late st Contact Info) Description 05/13/2025 7:30 AM EST Hospital Encounter [facility] [address] [place] [address] Melvin Mitchell, MEGAN [address] [place], [place] [id number] Preop testing (Primary Dx) 05/13/2025 7:30 AM EST Anesthesia Event [facility] [address] [place] [address] Cheryl Cerda, MARIALUISA [address] [place], [place] [id number] 05/13/2025 7:30 AM EST - 05/13/2025 10:00 AM EST Surgery [facility] [address] [place] [address] Melvin Mitchell, DPM [address] [facility] [address] [place], [place] [id number] BUNIONECTOMY DAQUAN 05/19/2025 11:00 AM EST Office Visit [facility] [place] [address] [facility] [address] [place] [address] Melvin Mitchell, DPM [address] [facility] [address] [place], [place] [id number] 06/24/2025 9:20 AM EST Office Visit [facility] [address] [place] [address] Mechelle Glez, DO [address] [place], [place] [id number] 08/25/2025 12:40 PM EST Office Visit [facility] [address] [place] [address] Lucille Basilio, DO [address] [facility] [address] [place], [place] [id number] Scheduled Procedures Name Priority Associated Diagnoses Date/Ti pr BUNIONECTOMY DAQUAN Tailor's bunion of right foot Toe pain, right Hammer toe of right foot Chronic foot pain, right 05/13/2025 7:30 AM EST HAMMER TOE REPAIR Tailor's bunion of right foot Toe pain, right Hammer toe of right foot Chronic foot pain, right 05/13/2025 7:30 AM EST documented as of this encounter Procedures Procedure Name Priority Date/Time Associated Diagnosis Comments CT TEMPORAL BONES IACS WO CONTRAST Routine 03/14/2025 2:18 PM EDT Mixed conductive and sensorineural hearing loss of right ear with restricted hearing of left ear documented in this encounter Results * CT TEMPORAL BONES [...] WO CONTRAST 03/14/2025 2:18 PM CLINICAL HISTORY: [id number].[id number] conductive and sensorineural hearing loss, unilateral, right ear with restricted hearing on the contralateral [id number]. COMPARISON: None. PROCEDURE COMMENTS: Multidetector CT scanning [...] No significant additional finding. Procedure Note Earl Alves DO - 03/15/2025 CT TEMPORAL BONES IACS WO CONTRAST 03/14/2025 2:18 PM CLINICAL HISTORY: [id number] conductive and sensorineural hearingloss, unilateral, right ear with restricted hearing on the contralateral [id number]. COMPARISON: None. PROCEDURE COMMENTS: Multidetector CT scanning [...] right documented in this encounter Care Teams Field Professional Relationship Specialty Start Date End Date Tony Roberts MD PCP - General Family Medicine 04/04/21 documented as of this encounter
--- OUTSIDE RECORDS SUMMARY | 2025-03-23 08:30 | XMS_ITS | Encounter Summary ---
Author Organization [facility] Address [address] [place] [id number] Care Team Providers Care Tailer Off Name Role Phone Tony Roberts MD Primary Care Provider [phone] Reason for Referral * MRI/CAT Scan (Routine) - Closed Specialty Diagnoses / Procedures Referred By Contac t Referred To Contact Radiology Diagnoses Dizziness Procedures MRI BRAIN W WO CONTRAST Joseph Mccoy MD [address] [place] [address] [facility] [place] [address] Phone: tel: fax: Referral ID Status Reason Start Date Expiration Date Visits Re quested Visits Authorized [id number] Closed 03/23/2025 03/23/2026 1 1 * Consultation (Routine) - Pending Review Specialty Diagnoses / Procedures Referred By Contac t Referred To Contact Neurology Diagnoses Dizziness Joseph Mccoy MD [address] [address] [facility] [place] [address] Phone: tel: fax: Steve Tobar MD [address] [place] [address] Phone: tel: fax: Referral ID Status Reason Start Date Expiration Date V isits Requested Visits Authorized [id number] Pending Review 03/23/2025 03/23/2026 1 1 Comments Suspicion for Vestibular migraines. Reason for Visit * Reason Comments Sinus Problem Encounter Details Date Type Department Care Team (Latest Contact Info) Description 03/23/2025 9:30 AM EDT Office Visit [facility] 40 [facility] [address] [place] [address] Joseph Mccoy MD 40 [facility] 101 [facility] [place] [address] Dizziness (Primary Dx); Mixed conductive and sensorineural hearing loss of right ear with restricted hearing of left ear; Sensorineural hearing loss (SNHL) of left ear with restricted hearing of right ear; Tinnitus of both ears; Photophobia; History of CT scan of head Social History Tobacco Use Types Packs/Day Years Used Date Smoking Tobacco: Former Cigarettes 1 44.8 S tarted: 07/08/1980 Passive Smoke Exposure: Never Smokeless Tobacco: Never Tobacco Cessation:Counseling Given: Not Answered Comments:nicorrete gum Alcohol Use Standard Drinks/Week Comments [...] Pressure - - Pulse - - Temperature 35 C (95 F) 03/23/2025 9:26 AM EDT Respiratory Rate - - Oxygen Saturation - - Inhaled Oxygen Concentration - - Weight 83.6 kg (184 lb 5 oz) 03/23/2025 9:26 AM EDT Height 172.7 cm (5' 8 ) 03/23/2025 9:26 AM EDT Body Mass Index 28.02 03/23/2025 9:26 AM EDT documented in this encounter Progress Notes * Joseph Mccoy MD - 03/23/2025 9:30 AM EDT Images from the original note were not included. Roseanne Kuo 1965 59 y.o. female 03/23/2025 Established Joseph Mccoy MD, [facility] Referring Provider: No ref. provider found Chief Complaint Patient presents with Sinus Problem HPI Roseanne Kuo is a 59 y.o. female who is here to follow up regarding dizziness. Patient states her symptoms are not improving and it is affecting her life and work. She is interested in getting an MRI. Patient feels like something is just wrong. 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 Patient also experiences: lightheadedness, headache, nausea or vomiting, and pressure in head Right ear: decreased hearing, tinnitus Symptoms are worse on the right Left ear: decreased hearing, tinnitus Does the patient have any neurological symptoms such as: Vision changes, numbness of face or extremities, weakness in arms or legs, confusion, difficulty swallowing, seizures, headaches or migraines? Intermittent headaches which she attributes to work related stress Currently treated with: Wendy Has the patient ever had: a head or neck injury? No Ear surgery? No Is there a family history of hearing loss? Yes, mother Recent testing? CT temporal bones Does the patient have any trouble with anesthesia? No Is there a family history of: Trouble with anesthesia? No Malignant Hyperthermia (high fever due to anesthesia)? No Pseudo cholinesterase deficiency (enzyme deficiency/very long time to wake from anesthesia)? 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 E11.65 Comp Stocking,Knee,Long,Medium Misc Misc Wear daily DULoxetine (CYMBALTA) 60 mg, DAILY fluticasone propionate (FLONASE) 50 mcg/actuation Nasl [place], Suspension 2 Sprays, Nasal, DAILY lancets (TowiTOUCH DELICA PLUS LANCET) 33 gauge Misc Misc [...] valACYclovir (VALTREX) 1,000 mg, 2 TIMES DAILY zolpidem (AMBIEN) 10 mg Oral Tablet No Known Allergies Past Surgical History: Procedure Laterality Date BREAST REDUCTION SURGERY Bilateral 2000 BREAST SURGERY reduction CHOLECYSTECTOMY FRACTURE SURGERY right ankle debridement HYSTERECTOMY RECTOCELE REPAIR N/A 04/03/2021 POSTERIOR REPAIR (RECTOCELE REPAIR; Surgeon: Tony Hansen MD; Location: [facility] MAIN OR; Service:Gynecology SPINAL FUSION WISDOM TOOTH EXTRACTION [...] Positive: ENT; Decreased hearing, Noises in the ear, Dizziness or vertigo headaches Exam: Vitals: 03/23/25 0926 Temp: 95 ??F (35 ??C) Weight: 184 lb 5 oz (83.6 kg) Height: 5' 8 (1.727 m) Body mass index is 28.02 kg/m??. General: -: well nourished, well developed, well groomed, age appropriate oral communication, normal voice sounds, no stridor Head and Face: -: no abnormalities of head and face, facial strength symmetrical, saliva gland normal to inspection and palpation Eyes: -: ocular mobility and gaze alignment normal wears glasses: Yes External Nose: -: Nasal dorsum grossly normal, without lesion Internal Nose: -: Septum midline, nasal mucosa normal in color and texture, turbinates normal Hearing: -: Clinical hearing thresholds-Normal Right Ear: -: Pre and post-auricular soft tissue and pinna normal, Right auricle, EAC and TM Normal Left Ear: -: Pre and post-auricular soft tissue and pinna normal, Left auricle, EAC and TM normal Oral Cavity: -: Appeared normal- including lips, dentition and tongue Oropharynx: -: Mucosa without lesion, tongue, hard palate, soft palate and tonsillar fossa within normal limits Thyroid: -: Thyroid not enlarged, symmetric, no tenderness, mass, nodules noted Neck: -: No masses noted on palpation Lymphatic: -: Palpation of the cervical and paratracheal lymph nodes reveals no adenopathy Respiratory: -: (no stridor) Neurological: -: Alert, appropriate and does not appear agitated, Oriented to time, place and person, Normal mood and affect Assessment and Plan: Diagnoses addressed this visit: 1. Dizziness AMB REFERRAL TO NEUROLOGY MRI BRAIN W WO CONTRAST 2. Mixed conductive and sensorineural hearing loss of right ear with restricted hearing of left ear 3. Sensorineural hearing loss (SNHL) of left ear with restricted hearing of right ear 4. Tinnitus of both ears 5. Photophobia 6. History of CT scan of head Ms Ayaan presented today to follow-up the recent CT imaging of her temporal bones and her mild right-sided low-frequency conductive hearing loss as well as persistent dizziness. The CT imaging ofthe temporal bones showed no abnormalities. However since her last visit the dizziness has worsenedand is now affecting her ability to work. She has not yet seen vestibular rehab because of the busyness of her schedule. She also reports mild photophobia and phonophobia with the dizziness episodes. I suspect most likely cause for her mild right-sided low-frequency conductive hearing loss is earlyotosclerosis. Because of the small size of the air-bone gap I recommend against stapedectomy at this time. I stressed again the importance of seeing vestibular rehab for her balance concerns. I also suggested a trial of vitamin B12 and magnesium supplementation. I placed a request for MRI as well as neurologic evaluation for possible vestibular migraines. Return in about 1 year (around 03/23/2026) for HEARING CHECK. [facility] ENT ENT [address] [address] This note may have been partially dictated using [employer] voice recognition software and may contain unintended error. documented in this encounter Miscellaneous Notes * Patient Instructions - Virgie Saleem RMA - 03/23/2025 9:30 AM EDT Please call our Central Scheduling department at to schedule your MRI. Dr. Mccoy recommends a daily over the counter Vitamin B12 and Magnesium for headache prevention. Cory Overton PT Physical therapist in [place], [place] Address: [address] [place] [id number] documented in this encounter Plan of Treatment Upcoming Encounters Date Type Department Care Team (Late st Contact Info) Description 05/13/2025 7:30 AM EST Hospital Encounter [facility] [address] [place] [address] Melvin Mitchell DPM [address] [facility] [address] [place], [place] [id number] Preop testing (Primary Dx) 05/13/2025 7:30 AM EST Anesthesia Event [facility] [address] [place] [address] Cheryl Cerda, TANNING WHEEL FILLER [address] [place] [address] 05/13/2025 7:30 AM EST - 05/13/2025 10:00 AM EST Surgery [facility] [address] [place] [address] Melvin Mitchell DPM [address] [facility] [address] [place], [place] [id number] BUNIONECTOMY DAQUAN 05/19/2025 11:00 AM EST Office Visit [facility] [place] [address] [place] [address] Melvin Mitchell, MEGAN [address] [id number] 06/24/2025 9:20 AM EST [facility] [address] [place] [address] Mechelle Glez, DO [address] [place], [place] [id number] 08/25/2025 12:40 PM EST Office Visit [facility] [address] [place] [id number] Lucille Basilio DO [address] [place] [address] Scheduled Procedures Name Priority Associated Diagnoses Date/Ti [...] Diagnoses Orde r Schedule AMB REFERRAL TO NEUROLOGY Outpatient Referral Routine Dizziness Ordered: 03/23/2025 documented as of this encounter Results * MRI BRAIN W WO CONTRAST (04/29/2025 3:17 PM EDT) Anatomical Region Laterality Modality Head Magnetic Resonan ce 04/29/2025 3:17 PM EDT Impressions 04/29/2025 4:14 PM EDT 1. No acute findings or abnormalities to explain the patient's symptoms. 2. Degenerative changes in the upper cervical spine as described Note: Radiology results need to be interpreted within a comprehensive clinical context. If you have questions about the radiology report, please contact the office of the ordering clinician. Narrative 04/29/2025 4:14 PM EDT CLINICAL HISTORY: [id number] and [id number]. COMPARISON: None. TECHNIQUE: MRI BRAIN W WO CONTRAST on 04/29/2025 3:17 PM. IV contrast as recorded in EPIC. FINDINGS: The ventricles, sulci, and basal cisterns are normal in size and configuration for the patient's age. There are no areas of abnormal signal or abnormal enhancement in the brain parenchyma. The diffusion-weighted images are unremarkable. There are no blood byproducts. The intracranial flow voids are grossly patent. There is no mass effect, midline shift, or extra-axial fluid collection. There is a disc osteophyte complex at C3-4 which contacts the anterior spinal cord and causes mild-moderate central canal narrowing. The visualized orbits, sinuses, and mastoids are unremarkable. Procedure Note Neel Sofia MD - 04/29/2025 CLINICAL HISTORY: [id number] and [id number]. COMPARISON: None. TECHNIQUE: MRI BRAIN W WO CONTRAST on 04/29/2025 3:17 PM. IV contrast as recorded in EPIC. FINDINGS: The ventricles, sulci, and basal cisterns are normal in sizeand configuration for the patient's age. There are no areas of abnormal signalor abnormal enhancement in the brain parenchyma. The diffusion-weightedimages are unremarkable. There are no blood byproducts. The intracranial flow voidsare grossly patent. There is no mass effect, midline shift, or extra-axialfluid collection. There is a disc osteophyte complex at C3-4 which contactsthe anterior spinal cord and causes mild-moderate central canal narrowing.The visualized orbits, sinuses, and mastoids are unremarkable. IMPRESSION: 1. No acute findings or abnormalities to explain the patient's symptoms. 2. Degenerative changes in the upper cervical spine as described Note: Radiology results need to be interpreted within a comprehensiveclinical context. If you have questions about the radiology report, please contactthe office of the ordering clinician. us Joseph Mccoy MD IMG MRI ORDERABLES Final Res ult documented in this encounter Visit Diagnoses Diagnosis Dizziness- Primary Dizziness and giddiness Mixed conductive and sensorineural hearing loss of right ear with restricted hearing of left ear Sensorineural hearing loss (SNHL) of left ear with restricted hearing of right ear Tinnitus of both ears Unspecified tinnitus Photophobia Visual discomfort History of CT scan of head Other specified personal history presenting hazards to health Preop testing- Primary Preoperative examination, unspecified Dizziness Dizziness and giddiness Tailor's bunion of right foot Toe pain, right Pain in limb Hammer toe of right foot Chronic foot pain, right documented in this encounter Historical Medications * This list may reflect changes made after this encounter. Medication Sig Dispense Quantity Refills Last Filled Start D ate End Date zolpidem (AMBIEN) 10 mg Oral Tablet 03/03/2025 added in this encounter Care Teams Tailer Off Relationship Specialty Start Date End Date Tony Roberts MD PCP - General Family Medicine 04/04/21 documented as of this encounter
--- OUTSIDE RECORDS SUMMARY | 2025-04-07 09:26 | XMS_ITS | Encounter Summary ---
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 Name Role Phone Tony Roberts MD Primary Care Provider [phone] Reason for Referral * Mammography (Routine) - Pending Review Specialty Diagnoses / Procedures Referred By Contac t Referred To Contact Radiology Diagnoses Encounter for screening mammogram for malignant neoplasm of breast Procedures MM MAMMO DIGITAL TERESITA SCREEN Tony He MD [address] [place] [address] Phone: tel: fax: Referral ID Status Reason Start Date Expiration Date V isits Requested Visits Authorized [id number] Pending Review 03/03/2025 03/03/2027 1 1 * Mammography (Routine) - Pending Review Specialty Diagnoses / Procedures Referred By Contac t Referred To Contact Radiology Diagnoses Encounter for screening mammogram for malignant neoplasm of breast Procedures MM MAMMO DIGITAL TERESITA SCREEN Tony He MD [address] [place] [address] Phone: tel: fax: Referral ID Status Reason Start Date Expiration Date V isits Requested Visits Authorized [id number] Pending Review 03/03/2025 03/03/2027 1 1 Reason for Visit * Mammography (Routine) - Pending Review Specialty Diagnoses / Procedures Referred By Contac t Referred To Contact Radiology Diagnoses Encounter for screening mammogram for malignant neoplasm of breast Procedures MM MAMMO DIGITAL TERESITA SCREEN Tony He MD [address] [place] [address] Phone: tel: fax: Referral ID Status Reason Start Date Expiration Date V isits Requested Visits Authorized [id number] Pending Review 03/03/2025 03/03/2027 1 1 Encounter Details Date Type Department Care Team (Latest Contact Info) Description 04/07/2025 10:26 AM EDT - 04/07/2025 11:59 PM EDT Hospital Encounter [facility] [address] [place] [address] [place] [address] [place] [address] Encounter for screening mammogram for malignant neoplasm of breast Discharge Disposition: Home or Self Care Social [...] Pressure - - Pulse - - Temperature - - Respiratory Rate - - Oxygen Saturation - - Inhaled Oxygen Concentration - - Weight 83.5 kg (184 lb) 04/07/2025 11:00 AM EDT Height 172.7 cm (5' 8 ) 04/07/2025 11:00 AM EDT Body Mass Index 27.98 04/07/2025 11:00 AM EDT documented in this encounter Medications at Time of Discharge amLODIPine (NORVASC) 10 mg Oral Tablet Take 10 mg by mouth daily. 11/05/2023 atorvastatin (LIPITOR) 20 mg Oral Tablet Take 20 mg by mouth daily. Blood Sugar Diagnostic (ONETOUCH VERIO TEST STRIPS) [facility] StripIndications:Ty pe 2 diabetes mellitus with hyperglycemia, without long-term current use of insulin ([facility] [place] [facility]) 1 Strip by [facility]Non-Drug ; Combo Route) route 2 times daily. Use to check blood glucose 2 times daily. E11.65 100 Each 01/22/2023 Comp Stocking,Knee,Long, Medium [facility] MiscIndications:Brendan ous insufficiency of both lower extremities Wear daily 2 Each 5 05/07/2023 DULoxetine (CYMBALTA) 60 mg Oral Capsule, Delayed Release(E.C.) Take 60 mg by mouth daily. fluticasone propionate (FLONASE) 50 mcg/actuation Nasl [place], SuspensionIndicatio ns:ETD (Eustachian tube dysfunction), right 2 Sprays by Nasal route daily. 1 Each 5 02/23/2025 lancets (Allied Pacific Sports NetworkTOUCH DELICA PLUS LANCET) 33 gauge [facility] MiscIndications:Typ e 2 diabetes mellitus with hyperglycemia, without long-term current use of insulin ([facility] [place] [facility]) 1 Each by [facility]Non-Drug ; Combo Route) route 2 times daily. Use to check blood glucose 2 times daily. E11.65 100 Each 01/22/2023 losartan (COZAAR) 100 mg Oral Tablet [...] 2 mg/dose (8 mg/3 mL) SubQ Pen InjectorIndications :Type 2 diabetes mellitus with hyperglycemia, without long-term current use of insulin ([facility] [place] [facility]) Inject 2 mg under the skin once a week. 9 mL 3 03/22/2025 documented as of this encounter Discharge Disposition Disposition Code Departure Means Destination Home or Self Care documented in this encounter Plan of Treatment Upcoming Encounters Date Type Department Care Team (Late st Contact Info) Description 05/13/2025 7:30 AM EST Hospital Encounter [facility] [address] [place] [address] Melvin Mitchell DPM [address] [facility] [address] [place] [address] Preop testing (Primary Dx) 05/13/2025 7:30 AM EST Anesthesia Event [facility] [address] [place] [address] Cheryl Cerda, CHROME POLISHER [address] [facility] [place] [address] 05/13/2025 7:30 AM EST - 05/13/2025 10:00 AM EST Surgery [facility] [address] [place] [address] Melvin Mitchell DPM [address] [facility] [address] [place] [address] BUNIONECTOMY DAQUAN 05/19/2025 11:00 AM EST Office Visit [facility] [place] [address] [place] [address] Melvin Mitchell DPM [address] [facility] [address] [place] [address] 06/24/2025 9:20 AM EST Office [facility] [address] [place] [address] Mechelle Glez, DO [address] [place], [place] [id number] 08/25/2025 12:40 PM EST Office Visit [facility] [address] [place] [address] Lucille Basilio, DO [address] [place] [address] Scheduled Procedures Name Priority Associated Diagnoses Date/Ti [...] Procedure Name Priority Date/Time Associated Diagnosis Comments MM MAMMO DIGITAL TERESITA SCREEN BILAT Routine 04/07/2025 11:10 AM EDT Encounter for screening mammogram for malignant neoplasm of breast documented in this encounter Results * MM MAMMO DIGITAL TERESITA SCREEN BILAT (04/07/2025 11:10 AM EDT) Anatomical Region Laterality Modality Breast Bilateral Mammography 04/07/2025 11:1 0 AM EDT Impressions 04/07/2025 1:33 PM EDT Negative ([id number]) RECOMMENDATION: Routine Screening Mammogram in 1 Year Bilateral . . COMMENTS: DISCLAIMER *The patient was notified by MyChart or mail of the results for this examination. *The patient's information was entered into a reminder system with a target due date for the next breast imaging, in accordance with the [employer] and the Society of Breast Imaging recommendations. *Breast Imaging has a false negative rate of 15%. *Any patient with a palpable abnormality, unexplained by breast imaging, should be managed on a clinical basis by the attending physician. Narrative 04/07/2025 1:33 PM EDT EXAM: MM MAMMO DIGITAL TERESITA SCREEN BILAT EXAM DATE: 04/07/2025 11:10 AM INDICATION: Z12.31-Encounter for screening mammogram for malignant neoplasm of [id number] COMPARISON STUDIES: Compared with prior studies the most recent being 05/07/2024 MM MAMMO DIGITAL TERESITA SCREEN BILAT at [facility] 04/27/2023 MM MAMMO DIGITAL TERESITA SCREEN BILAT at [facility] 04/25/2022 MM MAMMO DIGITAL TERESITA [facility]CREEN BILAT [facility] TISSUE DENSITY: The breasts are almost entirely fatty. FINDINGS: No mammographic evidence of malignancy. Procedure Note Leonel Macdonald MD - 04/07/2025 EXAM: MM MAMMO DIGITAL TERESITA SCREEN BILAT EXAM DATE: 04/07/2025 11:10 AM INDICATION: Z12.31-Encounter for screening mammogram for malignantneoplasm of [id number] COMPARISON STUDIES: Compared with prior studies the most recent being 05/07/2024 MM MAMMO DIGITAL TERESITA SCREEN BILAT at [facility] 04/27/2023 MM MAMMO DIGITAL TERESITA SCREEN BILAT at [facility] 04/25/2022 MM MAMMO DIGITAL TERESITA SCREEN BILAT at [facility] TISSUE DENSITY: The breasts are almost entirely fatty. FINDINGS: No mammographic evidence of malignancy. IMPRESSION: Negative ([id number]) RECOMMENDATION: Routine Screening Mammogram in 1 Year Bilateral . . COMMENTS: DISCLAIMER *The patient was notified by MyChart or mail of the results for this examination. *The patient's information was entered into a reminder system with atarget due date for the next breast imaging, in accordance with the [employer] and the Society of Breast Imaging recommendations. *Breast Imaging has a false negative rate of 15%. *Any patient with a palpable abnormality, unexplained by breast imaging,should be managed on a clinical basis by the attending physician. 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
--- OUTSIDE RECORDS SUMMARY | 2025-04-15 09:15 | XMS_ITS | Encounter Summary ---
Author [place] [address] Care Team Providers Care Hand Blocker Name Role Phone Tony Roberts MD Primary Care Provider [phone] Reason for Visit * Reason Comments Pre-op Exam R foot Diabetes Encounter Details Date Type Department Care Team (Late st Contact Info) Description 04/15/2025 10:15 AM EDT Office Visit [facility] [place] [address] [place] [address] Melvin Mitchell DPM [address] [place] [address] Preop examination (Primary Dx); Tailor's bunion of right foot; Toe pain, right; Hammer toe of right foot; Chronic foot pain, right Social History Tobacco Use Types Packs/Day Years [...] Pressure - - Pulse - - Temperature 36.4 C (97.5 F) 04/15/2025 10:32 AM EDT Respiratory Rate - - Oxygen Saturation - - Inhaled Oxygen Concentration - - Weight 85.9 kg (189 lb 6.4 oz) 04/15/2025 10:32 AM EDT Height 172.7 cm (5' 8 ) 04/15/2025 10:32 AM EDT Body Mass Index 28.8 04/15/2025 10:32 AM EDT documented in this encounter Ordered Prescriptions Prescription Sig Dispense Quantity Refills Last Filled Start Date End Date celecoxib (CELEBREX) 100 mg Oral CapsuleIndications :Chronic foot pain, right Take 1 Capsule by mouth 2 times daily (with meals) for 30 days. 60 Capsule 04/15/2025 ergocalciferol (VITAMIN D) 1,250 mcg (50,000 unit) Oral CapsuleIndications :Preop examination Take 1 Capsule by mouth once a week for 12 doses. 12 Capsule 04/15/2025 5 documented in this encounter Progress Notes * Melvin Mitchell DPM - 04/15/2025 10:15 AM EDTAssociated Problem(s): Tailor's bunion of right foot * Melvin Mitchell DPM - 04/15/2025 10:15 AM EDTAssociated Problem(s): Toe pain, right * Melvin Mitchell DPM - 04/15/2025 10:15 AM EDTAssociated Problem(s): Hammer toe of right foot * Melvin Mitchell DPM - 04/15/2025 10:15 AM EDTAssociated Problem(s): Chronic foot pain, right Orders: celecoxib (CELEBREX) 100 mg Oral Capsule; Take 1 Capsule by mouth 2 times daily (with meals) for 30days. * MitchellMelvin DPM - 04/15/2025 10:15 AM EDT [facility] Podiatric Surgery Outpatient Progress Note Chief Complaint: Chief Complaint Patient presents with Pre-op Exam R foot Diabetes History of Present Illness The patient is a 59-year-old female who presents for evaluation of chronic foot pain. She is scheduled for surgery on 05/13/2025 to address a tailor's bunion and hammertoe. She has beenexperiencing severe pain, which she has been managing with Aleve, but the medication is no longer providing sufficient relief. The pain is described as throbbing, followed by a burning sensation, andthen stinging. It is severe enough to disrupt her sleep. Her last day of work is 05/11/2025. She reports no history of blood clots or use of blood thinners. Her kidney function is normal, and her heart health is good. Her blood pressure is well-controlled. She has a history of diabetes, diagnosed 2 years ago when her A1c was 7.4. She has an upcoming appointment with her marketing technology specialist at the end of this month for an A1c check and routine follow-up. She has been managing her diabetes effectively, with her A1c levels remaining stable. 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 FAMILY HISTORY She reports no family history of coagulopathies. ALLERGIES The patient has no known allergies. MEDICATIONS Current: Aleve Medications: Medications Taking[1] Allergies[2] Past Medical History[3] Surgical History[4] Family History[5] Social History: Roseanne's social history reviewed: Social History[6] Objective: 04/15/2025 Weight: 189 lb 6.4 oz (85.9 kg) Height: 5' 8 (172.7 cm) Body mass index is 28.8 kg/m??. Vitals: 04/15/25 1032 Temp: 97.5 ??F (36.4 ??C) Physical Exam Pain with palpation noted to lateral eminence of the fifth metatarsal head right foot, underlying tailor's bunion deformity. Patient also demonstrates pain to the fifth digit hammertoe with adductovarus hammertoe deformities noted. No pain with range of motion of the fifth MTP. Gait remains chronically antalgic. Lab Results Component Value Date NA 140 10/12/2024 K 3.9 10/12/2024 CL 105 10/12/2024 CO2 27 10/12/2024 ANIONGAP 8 10/12/2024 CALCIUM 9.3 10/12/2024 GLU 88 10/12/2024 BUN 13 10/12/2024 CREATININE 0.83 10/12/2024 GFRCKDEPI 80 10/12/2024 Lab Results Component Value Date WBC 4.8 01/01/2024 RBC 4.79 01/01/2024 HGB 12.3 01/01/2024 HCT 38.6 01/01/2024 MCV 80.6 01/01/2024 MCH 25.7 (L) 01/01/2024 MCHC 31.9 01/01/2024 RDW 13.8 01/01/2024 PLT 272 01/01/2024 MPV 11.4 01/01/2024 Lab Results Component Value Date NA 140 10/12/2024 K 3.9 10/12/2024 CL 105 10/12/2024 CO2 27 10/12/2024 ANIONGAP 8 10/12/2024 CALCIUM 9.3 10/12/2024 GLU 88 10/12/2024 BUN 13 10/12/2024 CREATININE 0.83 10/12/2024 ALBUMIN 4.1 10/12/2024 PROT 6.4 10/12/2024 LABBILI 0.4 10/12/2024 ALT 51 (H) 10/12/2024 AST 31 10/12/2024 ALKPHOS 78 10/12/2024 GFRCKDEPI 80 10/12/2024 Lab Results Component Value Date HGBA1C 5.7 (H) 10/12/2024 ESTIMATEDAVE 117 10/12/2024 No results found for: CRP Lab Results Component Value Date SEDRATE 3 10/27/2020 No results found for this or any previous visit. No results found for this or any previous visit. No results found for this or any previous visit. No results found for this or any previous visit. No results found for this or any previous visit. No results found for this or any previous visit. Assessment & Plan Preop examination Orders: ergocalciferol (VITAMIN D) 1,250 mcg (50,000 unit) Oral Capsule; Take 1 Capsule by mouth once a week for 12 doses. Tailor's bunion of right foot Toe pain, right Hammer toe of right foot Chronic foot pain, right Orders: celecoxib (CELEBREX) 100 mg Oral Capsule; Take 1 Capsule by mouth 2 times daily (with meals) for 30days. Assessment & Plan 1. Chronic foot pain. She is scheduled for a reverse Daquan bunionectomy and hammertoe correction of the fifth digit on the right foot on 05/13/2025. The procedure will involve shaving down the prominent bone, performing an osteotomy, and correcting the hammertoe with a wedge resection and derotation of the toe. Postoperative care includes leaving the dressing clean, dry, and intact. Pain management will be addressed with Percocet if needed. Celebrex 100 mg twice daily has been prescribed for pain management, with instructions to discontinue use one week prior to surgery. Indications risk and benefits reviewed. Labs reviewed. The potential risks and benefits of the surgery were discussed, including infection, blood clot, need for additional surgery, swelling, paresthesias, numbness along the incision, and delayed bone healing. 2. Diabetes mellitus. Her A1c level is well-controlled at 5.1 as of November 2023. She is advised to continue her current diabetes management regimen. She will follow up with her marketing technology specialist at the end of this month for anA1c check and routine follow-up. 3. Vitamin D deficiency. A prescription for vitamin D supplements, to be taken once weekly for 12 weeks, has been provided. At this time the patient elected for surgical intervention as a means of alleviating their ailments. I had an extensive conversation with the patient regarding the risks, benefits, potential complication and reasonable expectations of the planned procedure. Informed verbal and written consent was given under no distress. We had ample opportunities for address questions regarding the usual outcomes. Risks specifically discussed, but not limited to the following, include infection, bleeding, blood clots, delayed healing, scarring, anesthesia complications, nerve and blood vessel injury, chronicnerve pain (CRPS), loss of reduction (if fracture), nonunion, malunion, infection, re- tear or re-injury (if ligament/tendon fixed), hardware breakage or failure (if used), need for additional surgery, and post-operative stiffness. In addition, in rare, cases the patient may have loss of a limb or even . No guarantee of any particular results were given. The patient understands that in some cases surgery can make them worse. All of the patient's questions, comments and concerns were addressed. Patient is agreeable to plan. Procedures planned on this vist: Reverse Daquan tailor's bunionectomy, right foot Hammertoe correction fifth digit, right foot - Weight bearing status: Immediate partial weightbearing to heel. - Impact on employment: Patient to notify me. - Medical clearance: - DVT ppx: Immediate ambulation. - ABX ppx: Ancef. - Pain management: Percocet. I discussed the risks and benefits of the use of controlled substanceswith the patient, including the risk of tolerance and drug dependence. Also discussed not to work, drive, or make any legal decisions while taking a controlled substance. Pt verbalizes understanding.Efforts will be made to deescalate and augment pain medication as indicated. All of the patient's questions, comments and concerns were addressed. Patient is agreeable to plan. Melvin Mitchell DPM, FACFAS 04/25/2025 @ENCPROV@ The provider educated the patient (or legal patient service representative) on the use of the ambient listening artificial intelligence tool, [employer] Me. They were informed that this AI tool processes the conversation to generate a clinical note with the expected benefit of improved accuracy while achieving an improved encounter experience for the patient and provider.?The provider explained that the medical information captured by the AI tool including, but not limited to, diagnoses and treatment plan would be protected in accordance with applicable privacy laws and that all diagnoses and treatment decisions would be made by the provider. The provider explained that the note generated will be reviewed bythe provider for accuracy to minimize potential errors.? The patient was given an opportunity to ask questions and opt out of proceeding with the use of the AI tool. After being informed of such information, the patient (or legal patient service representative), and each individual in attendance with the patient, verbally consented to the use of the AI tool. Disclaimer - This note was completed using voice recognition software and manual typing. It may contain unintended words, typos, etc. despite my review of the draft note prior to final signature. Please do not hesitate to contact me through the hospital paging system if there are questions or concerns. [1] Outpatient Medications Marked as Taking for the 04/15/25 encounter (Office Visit) with Melvin Mitchell DPM Medication Sig Dispense Refill amLODIPine (NORVASC) 10 mg Oral Tablet Take 10 mg by mouth daily. atorvastatin (LIPITOR) 20 mg Oral Tablet Take 20 mg by mouth daily. Blood Sugar Diagnostic (ONETOUCH VERIO TEST STRIPS) Mis Strip 1 Strip by Mis.(Non-Drug; Combo Route) route 2 times daily. Use to check blood glucose 2 times daily. E11.65 100 Each 11 Comp Stocking,Knee,Long,Medium Misc Misc Wear daily 2 Each 5 DULoxetine (CYMBALTA) 60 mg Oral Capsule, Delayed Release(E.C.) Take 60 mg by mouth daily. fluticasone propionate (FLONASE) 50 mcg/actuation Nasl [place], Suspension 2 Sprays by Nasal route daily. 1 Each 5 lancets (Canadian SolarTOUCH DELICA PLUS LANCET) 33 gauge Misc Misc 1 Each by Mis.(Non- Drug; Combo Route) route 2 times daily. Use to check blood glucose 2 times daily. E11.65 100 Each 11 losartan (COZAAR) 100 mg Oral Tablet Take 100 mg by mouth daily. ondansetron (ZOFRAN) 4 mg Oral Tablet TAKE 1 TABLET BY MOUTH 3 TIMES A DAY NEEDED FOR NAUSEA ANDVOMITING pantoprazole (PROTONIX) 40 mg Oral Tablet, Delayed Release (E.C.) Take 1 Tablet by mouth 2 times daily. 180 Tablet 3 semaglutide (OZEMPIC) 2 mg/dose (8 mg/3 mL) SubQ Pen Injector Inject 2 mg under the skin once a week. 9 mL 3 valACYclovir (VALTREX) 1 gram Oral Tablet Take 1,000 mg by mouth 2 times daily. as needed zolpidem (AMBIEN) 10 mg Oral Tablet [2] No Known Allergies [3] Past Medical History: Diagnosis Date Arthritis Bladder infection, chronic Colon polyp Depression Diabetes mellitus (HCC) Elevated triglycerides with high cholesterol Hyperlipidemia Hypertension Post-operative nausea and vomiting [4] Past Surgical History: Procedure Laterality Date BREAST REDUCTION SURGERY Bilateral 2000 BREAST SURGERY reduction CHOLECYSTECTOMY FRACTURE SURGERY right ankle debridement HYSTERECTOMY RECTOCELE REPAIR N/A 04/03/2021 POSTERIOR REPAIR (RECTOCELE REPAIR; Surgeon: Tony Hansen MD; Location: [facility] MAIN [facility]; Service:Gynecology SPINAL FUSION WISDOM TOOTH EXTRACTION [5] Family History Problem Relation Age of Onset Diabetes Mother Hypertension Mother Heart Disease Father Hypertension Father Breast Cancer Neg Hx [6] Social History Socioeconomic History Marital status: Spouse name: None Number of children: None Years of education: None Highest education level: None Tobacco Use Smoking status: Former Current packs/day: 1.00 Average packs/day: 1 pack/day for 44.8 years (44.8 ttl pk-yrs) Types: Cigarettes Start date: 07/08/1980 Passive exposure: Never Smokeless tobacco: Never Tobacco comments: nicorrete gum Vaping Use Vaping status: Never Used Substance and Sexual Activity Alcohol use: Never Drug use: Never Sexual activity: Yes Partners: Male control/protection: Surgical documented in this encounter Plan of Treatment Upcoming Encounters Date Type Department Care Team (Late st Contact Info) Description 05/13/2025 7:30 AM EST Hospital Encounter [facility] [address] [place] [address] Melvin Mitchell DPM [address] [address] Preop testing (Primary Dx) 05/13/2025 7:30 AM EST Anesthesia Event [facility] [address] [place] [address] Cheryl Cerda, LIDAR SCIENTIST [address] [facility] [place] [place] [address] 05/13/2025 7:30 AM EST - 05/13/2025 10:00 AM EST Surgery [facility] [address] [place] [address] Melvin Mitchell DPM [address] [address] BUNIONECTOMY DAQUAN 05/19/2025 11:00 AM EST Office Visit [facility] [address] [place] [address] Melvin Mitchell DPM [address] [place] [address] 06/24/2025 9:20 AM EST [facility] Visit [facility] [address] [place] [address] Mechelle Glez, DO [address] [place], [place] [id number] 08/25/2025 12:40 PM EST Office Visit [facility] [address] [place] [address] Lucille Basilio, DO [address] [place] [address] Scheduled Procedures Name Priority Associated Diagnoses Date/Ti me BUNIONECTOMY DAQUAN Tailor's bunion of right foot Toe pain, right Hammer toe of right foot Chronic foot pain, right 05/13/2025 7:30 AM EST HAMMER TOE REPAIR Tailor's bunion of right foot Toe pain, right Hammer toe of right foot Chronic foot pain, right 05/13/2025 7:30 AM EST documented as of this encounter Goals Goal Patient Goal Type Associated Problems Recent Progress Patient-Stated? Author Autogenerat ed Goal Care Plan Autogenerated Problem No Nazanin Cope documented as of this encounter Visit Diagnoses Diagnosis Preop testing- Primary Preoperative examination, unspecified Tailor's bunion of right foot Toe pain, right Pain in limb Hammer toe of right foot Chronic foot pain, right Preop examination- Primary Preoperative examination, unspecified Tailor's bunion of right foot Toe pain, right Pain in limb Hammer toe of right foot Chronic foot pain, right Tailor's bunion of right foot Toe pain, right Pain in limb Hammer toe of right foot Chronic foot pain, right documented in this encounter Additional Health Concerns Active Problems Noted Date Diagnosed Date Autogenerated Problem 04/14/2025 documented as of this encounter Care Teams Hand Blocker Relationship Specialty Start Date End Date Tony Roberts MD PCP - General Family Medicine 04/04/21 documented as of this encounter
--- OUTSIDE RECORDS SUMMARY | 2025-04-29 13:39 | XMS_ITS | Encounter Summary ---
Author [place] [address] Care Team Providers Care Tool Design Engineer Name Role Phone Tony Roberts MD Primary Care Provider [phone] Reason for Referral * MRI/CAT Scan (Routine) - Closed Specialty Diagnoses / Procedures Referred By Contac t Referred To Contact Radiology Diagnoses Dizziness Procedures MRI BRAIN W WO CONTRAST Joseph Mccoy MD [address] [place] [address] [facility] [place] [address] Phone: tel: fax: Referral ID Status Reason Start Date Expiration Date Visits Re quested Visits Authorized [id number] Closed 03/23/2025 03/23/2026 1 1 Reason for Visit * MRI/CAT Scan (Routine) - Closed Specialty Diagnoses / Procedures Referred By Contac t Referred To Contact Radiology Diagnoses Dizziness Procedures MRI BRAIN W WO CONTRAST Joseph Mccoy MD [address] [address] [facility] [place] [address] Phone: tel: fax: Referral ID Status Reason Start Date Expiration Date Visits Re quested Visits Authorized [id number] Closed 03/23/2025 03/23/2026 1 1 Encounter Details Date Type Department Care Team (Latest Contact Info) Description 04/29/2025 2:39 PM EDT - 04/29/2025 11:59 PM EDT Hospital Encounter [facility] [address] [address] Joseph Mccoy MD [address] [facility] [address] [facility] [place] [address] Dizziness Discharge Disposition: Home or Self Care Social [...] Blood Sugar Diagnostic (ONETOUCH VERIO TEST STRIPS) [facility] StripIndications:Ty pe 2 diabetes mellitus with hyperglycemia, without long-term current use of insulin (HCC) 1 Strip by [facility]Non-Drug ; Combo Route) route 2 times daily. Use to check blood glucose 2 times daily. E11.65 100 Each 11 01/22/2023 butalbital-acetamin ophen-caffeine (FIORICET) 50-300-40 mg Oral Capsule Take 1 Capsule by mouth every 6 hours as needed for Headaches. 04/27/2025 celecoxib (CELEBREX) 100 mg Oral CapsuleIndications: Chronic foot pain, right Take 1 Capsule by mouth 2 times daily (with meals) for 30 days. 60 Capsule 04/15/2025 Comp Stocking,Knee,Long, Medium [facility] MiscIndications:Brendan ous insufficiency of both lower extremities Wear daily 2 Each 5 05/07/2023 DULoxetine (CYMBALTA) 60 mg Oral Capsule, Delayed Release(E.C.) Take 60 mg by mouth daily. ergocalciferol (VITAMIN D) 1,250 mcg (50,000 unit) Oral CapsuleIndications: Preop examination Take 1 Capsule by mouth once a week for 12 doses. 12 Capsule 04/15/2025 5 fluticasone propionate (FLONASE) 50 mcg/actuation Nasl [place], SuspensionIndicatio ns:ETD (Eustachian tube dysfunction), right 2 Sprays by Nasal route daily. 1 Each 5 02/23/2025 lancets (ONETOUCH DELICA PLUS LANCET) 33 gauge [facility] MiscIndications:Typ e 2 diabetes mellitus with hyperglycemia, without long-term current use of insulin ([facility]) 1 Each by [facility]Non-Drug ; Combo Route) route 2 times daily. [...] without long-term current use of insulin (HCC) Inject 2 mg under the skin once a week. 9 mL 3 03/22/2025 5 documented as of this encounter Discharge Disposition Disposition Code Departure Means Destination Home or Self Care documented in this encounter Plan of Treatment Upcoming Encounters Date Type Department Care Team (Late st Contact Info) Description 05/13/2025 7:30 AM EST Hospital Encounter [facility] [address] [place] [address] Melvin Mitchell, MEGAN [address] [place] [id number] Preop testing (Primary Dx) 05/13/2025 7:30 AM EST Anesthesia Event [facility] [address] [place] [address] Cheryl Cerda, FLORAL MANAGER [address] [facility] [address] [place], [place] [id number] 05/13/2025 7:30 AM EST - 05/13/2025 10:00 AM EST Surgery [facility] [address] [place] [address] Melvin Mitchell, DPM [address] [facility] [address] [place], [place] [id number] BUNIONECTOMY DAQUAN 05/19/2025 11:00 AM EST Office Visit [facility] [place] [address] [place] [address] Melvin Mitchell DPM [address] [facility] [address] [place] [address] 06/24/2025 9:20 AM EST Office Visit [facility] [address] [place] [address] Mechelle Glez, DO [address] [place], [place] [id number] 08/25/2025 12:40 PM EST Office Visit [facility] [address] [place] [address] Lucille Basilio DO [address] [place] [id number] Scheduled Procedures Name Priority Associated Diagnoses [...] Nazanin Cope documented as of this encounter Procedures Procedure Name Priority Date/Time Associated Diagnosis Comments MRI BRAIN W WO CONTRAST Routine 04/29/2025 3:17 PM EDT Dizziness documented in this encounter Results * MRI BRAIN W [...] Narrative 04/29/2025 4:14 PM EDT CLINICAL HISTORY: [id number]. COMPARISON: None. TECHNIQUE: MRI BRAIN W WO [...] Neel Sofia MD - 04/29/2025 CLINICAL HISTORY: [id number] and [id number]. COMPARISON: None. TECHNIQUE: MRI BRAIN W WO [...] documented in this encounter Visit Diagnoses Diagnosis Preop testing- Primary Preoperative examination, unspecified Tailor's bunion of right foot Toe pain, right Pain in limb Hammer toe of right foot Chronic foot pain, right Dizziness Dizziness and giddiness Tailor's bunion of right foot Toe pain, right Pain in limb Hammer toe of right foot Chronic foot pain, right documented in this encounter Administered Medications Inactive Administered Medications - up to 1 most recent administrations Medication Order MAR Action Action Date Dose Rate Site gadoterate meglumine (DOTAREM) solution 18 mL 18 mL, Intravenous, ONCE PRN, 1 dose, Starting on Margarita 04/29/25 at 1517, Until Margarita 04/29/25 at 1517, Radiology Procedure, VESICANT , MRI (Contrasts) Given 04/29/2025 3:17 PM EDT 18 mL Right Arm documented in this encounter Orders Medications Ordered That Donell ht Not Have Been Administered Count Last Ordered Date First Ordered Date gadoterate meglumine (DOTARE M) solution 18 mL 1 04/29/2025 documented in this encounter Additional Health Concerns Active Problems Noted Date Diagnosed Date Autogenerated Problem 04/14/2025 documented as of this encounter Care Teams Tool Design Engineer Relationship Specialty Start Date End Date Tony Roberts MD PCP - General Family Medicine 04/04/21 documented as of this encounter
--- OUTSIDE RECORDS SUMMARY | 2025-05-03 10:49 | XMS_ITS | Encounter Summary ---
Author Organization [place] [address] Care Team Providers Care Insole Buffer Name Role Phone Tony Roberts MD Primary Care Provider [phone] Encounter Details Date Type Department Care Team (Latest Contact Info) Description 05/03/2025 11:49 AM EDT - 05/03/2025 11:59 PM EDT Hospital Encounter [facility] [address] [place] [address] Type 2 diabetes mellitus with hyperglycemia, without long-term current use of insulin (HCC) Discharge Disposition: Home or Self Care Social [...] Blood Sugar Diagnostic (ONETOUCH VERIO TEST STRIPS) [facility] Strip[place]ications:Ty pe 2 diabetes mellitus with hyperglycemia, without long-term current use of insulin (HCC) [address] [facility]Non-Drug ; Combo Route) route 2 times daily. [...] days. 60 Capsule 04/15/2025 Comp Stocking,Knee,Long, Medium [facility] MiscIndications:Brendan ous insufficiency of both lower extremities Wear daily 2 Each 5 05/07/2023 DULoxetine (CYMBALTA) 60 mg Oral Capsule, Delayed Release(E.C.) Take 60 mg by mouth daily. ergocalciferol (VITAMIN D) 1,250 mcg (50,000 unit) Oral CapsuleIndications: Preop examination Take 1 Capsule by mouth once a week for 12 doses. 12 Capsule 04/15/2025 fluticasone propionate (FLONASE) 50 mcg/actuation Nasl Theresa, SuspensionIndicatio ns:ETD (Eustachian tube dysfunction), right 2 Sprays by Nasal route daily. 1 Each 5 02/23/2025 lancets (ONETOUCH DELICA PLUS LANCET) [address] [facility] MiscIndications:Typ e 2 diabetes mellitus with hyperglycemia, without long-term current use of insulin (HCC) [address] [facility]Non-Drug ; Combo Route) route 2 times daily. [...] [facility] [address] [place] [address] Melvin Mitchell DPM [address] [address] Preop testing (Primary Dx) 05/13/2025 7:30 AM EST Anesthesia Event [facility] [address] [place] [address] Cheryl Cerda, VEHICLE MAINTENANCE SUPERVISOR [address] [address] 05/13/2025 7:30 AM EST - 05/13/2025 10:00 AM EST Surgery [facility] [address] [place] [address] Melvin Mitchell DPM [address] [address] BUNIONECTOMY DAQUAN 05/19/2025 11:00 AM EST Office Visit [facility] [address] [place] [address] Melvin Mitcehll DPM [address] [address] 06/24/2025 9:20 AM EST [facility] [address] [place] [address] Mechelle Glez, DO [address] [place], [place] [id number] 08/25/2025 12:40 PM EST Office Visit [facility] [address] [place] [address] Lucille Basilio, DO [address] [place] [address] Scheduled Procedures Name Priority Associated [...] Care Plan Autogenerated Problem No Nazanin Cope Symone documented as of this encounter Procedures Procedure Name Priority Date/Time Associated Diagnosis Comments ALBUMIN/CREATININE RATIO, RANDOM URINE Routine 05/03/2025 11:51 AM EDT Type 2 diabetes mellitus with hyperglycemia, without long-term current use of insulin (HCC) HEMOGLOBIN A1C Routine 05/03/2025 11:51 AM EDT Type 2 diabetes mellitus with hyperglycemia, without long-term current use of insulin (HCC) COMPREHENSIVE METABOLIC PANEL Routine 05/03/2025 11:51 AM EDT Type 2 diabetes mellitus with hyperglycemia, without long-term current use of insulin (HCC) documented in this encounter Results * MICROALBUMIN/CREATININE RATIO URINE (05/03/2025 11:51 AM EDT) Urine Albumin <12.0 mg/L 05/03/2025 3:29 PM EDT [facility] Urine Creatinine 91.7 mg/dL 05/03/20 3:29 PM EDT [facility] Ur Albumin/Creat Ratio <13 <31 mg/g 05/03/2025 3:29 PM EDT [facility] Comment: Because the albumin level is below the level of detection in this urine specimen, the laboratory is unable to calculate a reliable albumin/creatinine ratio. Albuminuria is unlikely if the urine albumin concentration is less than 20-30 mg/L. Urine STRUCTURE OF URINARY TRACT PROPER / Unknown 05/03/2025 11:51 AM EDT 05/03/2025 11:51 AM EDT us Nurys Burrows MD URINE ORDERABLES Final Result [facility] [address] , [address] [place] [id number] * COMPREHENSIVE METABOLIC PANEL (05/03/2025 11:51 AM EDT) Sodium 137 136 - 145 mmol/L 05/03/2025 5:25 PM EDT [facility] Potassium 4.2 3.5 - 5.0 mmol/L 05/03/2025 5:25 PM EDT [facility] Chloride 101 98 - 107 mmol/L 05/03/2025 5:25 PM EDT [facility] Total CO2 27 22 - 29 mmol/L 05/03/2025 5:25 PM EDT [facility] Anion Gap 9 7 - 16 mmol/L 05/03/2025 5:25 PM EDT [facility] Calcium 9.5 8.8 - 10.4 mg/dL 05/03/2025 5:25 PM EDT [facility] Glucose Lvl 77 70 - 99 mg/dL 05/03/2025 5:25 PM EDT [facility] BUN 8 8 - 23 mg/dL 05/03/2025 5:25 PM EDT [facility] Creatinine 0.87 0.51 - 1.30 mg/dL 05/03/2025 5:25 PM EDT [facility] Albumin 4.3 3.2 - 4.6 gm/dL 05/03/2025 5:25 PM EDT [facility] Total Protein 6.5 6.4 - 8.3 gm/dL 05/03/2025 5:25 PM EDT [facility] Bili Total 0.2 0.2 - 1.3 mg/dL 05/03/2025 5:25 PM EDT [facility] ALT 25 <=41 U/L 05/03/2025 5:25 PM EDT [facility] AST 22 <=40 U/L 05/03/2025 5:25 PM EDT [facility] Alk Phos 67 36 - 123 U/L 05/03/2025 5:25 PM EDT [facility] eGFR (CKD-EPIcr 2020) 75 >=60 mL/min/1.7 3 m2 05/03/2025 5:25 PM EDT [facility] Comment:Estimated GFR was ca lculated using the CKD-EPIcr (2020) equation refit without race. The equation is recommended by the National Kidney Foundation - [place] [employer] of Nephrology Task Force. Blood VENOUS BLOOD / Unknown Venipuncture / Unknown 05/03/2025 11:51 AM EDT 05/03/2025 11:51 AM EDT us Nurys Burrows MD CHEMISTRY ORDERABLES Final Re sult [facility] [address] [place] [address] * (ABNORMAL) HEMOGLOBIN A1C (05/03/2025 11:51 AM EDT) Hgb A1C 5.7(H) 4.2 - 5.6 % 05/03/2025 3:54 PM EDT [facility] Est. Avg Glucose 117 mg/dL 05/03/2025 3:54 PM EDT [facility] Blood VENOUS BLOOD / Unknown Venipuncture / Unknown 05/03/2025 11:51 AM EDT 05/03/2025 11:51 AM EDT Narrative [facility] - 05/03/2025 3:54 PM EDT REFERENCE RANGE: Normal: 4.0-5.6% Pre-diabetes: 5.7-6.4% Provisional diagnosis of diabetes: >6.4% Hgb F>10% and anything which shortens red cell survival, such as hemolytic anemia, or unstable hemoglobin variants such as HbSS, HbSC, or HbCC, will lower the HbA1c value associated with a given level of glycemic control. us Nurys Burrows MD CHEMISTRY ORDERABLES Final Re sult [facility] [employer] [address] [place] [address] , [place] [address] documented in this encounter Visit Diagnoses Diagnosis Preop testing- Primary Preoperative examination, unspecified Tailor's bunion of right foot Toe pain, right Pain in limb Hammer toe of right foot Chronic foot pain, right Type 2 diabetes mellitus with hyperglycemia, without long-term current use of insulin (HCC) Tailor's bunion of right foot Toe pain, right Pain in limb Hammer toe of right foot Chronic foot pain, right documented in this encounter Additional Health Concerns Active Problems Noted Date Diagnosed Date Autogenerated Problem 04/14/2025 documented as of this encounter Care Teams Insole Buffer Relationship Specialty Start Date End Date Tony Roberts MD PCP - General Family Medicine 04/04/21 documented as of this encounter
--- OUTSIDE RECORDS SUMMARY | 2025-05-07 09:30 | XMS_ITS | Encounter Summary ---
Author Organization [place] [address] Care Team Providers Care Shuttle Van Driver Name Role Phone Tony Roberts MD Primary Care Provider [phone] Reason for Visit * Reason Comments Diabetes Encounter Details Date Type Department Care Team (Late st Contact Info) Description 05/07/2025 10:30 AM EDT [facility] [place] [address] [place] [address] Nurys Burrows MD [address] [place] [address] Type 2 diabetes mellitus with hyperglycemia, without long-term current use of insulin (HCC) (Primary Dx); Hypertension associated with type 2 diabetes mellitus (HCC); Hyperlipidemia associated with type 2 diabetes mellitus (HCC); Metabolic dysfunction-associate d steatotic liver disease (MASLD) Social History Tobacco Use Types Packs/Day Years Used Date Smoking Tobacco: Former Cigarettes 1 44.8 S tarted: 07/08/1980 Passive Smoke Exposure: Never Smokeless Tobacco: Never Comments:nicorrete gum Alcohol Use Standard Drinks/Week Comments Not Currently 0 (1 standard drink = 0.6 oz pur e alcohol) Sexually Active Control Partners Comments Yes Post-menopausal Male Comments No Sex and Gender Information Value Date Recorded Sex Assigned at Not on file Legal Sex Female 3:47 PM EDT Gender Identity Not on file Sexual Orientation Not on file documented as of this encounter Last Filed Vital Signs Vital Sign Reading Time Taken Comments Blood Pressure 138/84 05/07/2025 10:21 AM EDT Pulse 82 05/07/2025 10:21 AM EDT Temperature - - Respiratory Rate - - Oxygen Saturation - - Inhaled Oxygen Concentration - - Weight 86.9 kg (191 lb 8 oz) 05/07/2025 10:21 AM EDT Height 172.7 cm (5' 8 ) 05/07/2025 10:21 AM EDT Body Mass Index 29.12 05/07/2025 10:21 AM EDT documented in this encounter Ordered Prescriptions Prescription Sig Dispense Quantity Refills Last Filled Start Date End Date semaglutide (OZEMPIC) 2 mg/dose (8 mg/3 mL) SubQ Pen InjectorIndications :Type 2 diabetes mellitus with hyperglycemia, without long-term current use of insulin (HCC) Inject 2 mg under the skin once a week. 9 mL 3 05/07/2025 documented in this encounter Progress Notes * Nurys Burrows MD - 05/07/2025 10:45 AM EDTAssociated Problem(s): Metabolic dysfunction-associated steatotic liver disease (MASLD) Stable on GLP-1 RA * Nurys Burrows MD - 05/07/2025 10:45 AM EDTAssociated Problem(s): Type 2 diabetes mellitus with hyperglycemia, without long-term current use of insulin (HCC) Glycemic control is stable and at goal. She is to continue present medication regimen for now * Nurys Burrows MD - 05/07/2025 10:45 AM EDTAssociated Problem(s): Hypertension associated with type 2 diabetes mellitus (HCC) Blood pressure is stable on a current medication regimen. The patient is to continue present medication regimen. * Nurys Burrows MD - 05/07/2025 10:44 AM EDTAssociated Problem(s): Hyperlipidemia associated with type 2 diabetes mellitus (HCC) The patient is to have fasting lipid profile done prior to the next visit * Nurys Burrows MD - 05/07/2025 10:30 AM EDT Subjective Subjective: Patient ID: Roseanne Kuo is a 59 y.o. female. 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 Previous diabetic medications Metformin - changed to OZempic Duration of diabetes: 2021 Knowledge/Classes of Diabetes Management: yes Microvascular complications Retinopathy: No Neuropathy: no Nephropathy: Macrovascular complications: None statin G - 4 , P - 4 Hysterectomy at the age of 41 HRT: pallet in the past Fractures: right foot fx x2 Kidney stones: no FH: multiple relatives with type 2 DM Lab Results Component Value Date TSH 1.580 01/23/2023 TSH 3.460 10/27/2020 TSH 3.150 02/12/2020 Lab Results Component Value Date HGBA1C 5.7 (H) 05/03/2025 HGBA1C 5.7 (H) 10/12/2024 HGBA1C 5.1 11/13/2023 Lab Results Component Value Date CHOLESTEROL 154 10/12/2024 CHOLESTEROL 164 11/13/2023 CHOLESTEROL 145 01/23/2023 HDL 53 10/12/2024 HDL 48 11/13/2023 HDL 46 01/23/2023 LDLCALC 81 10/12/2024 LDLCALC 97 11/13/2023 LDLCALC 71 01/23/2023 TRIG 114 10/12/2024 TRIG 104 11/13/2023 TRIG 164 (H) 01/23/2023 Lab Results Component Value Date CREATININE 0.87 05/03/2025 AST 22 05/03/2025 ALT 25 05/03/2025 Patients past medical, family and social histories were reviewed and updated. There were no changesexcept as noted. Review of Systems Constitutional: Negative for activity change, appetite change and chills. HENT: Negative. Eyes: Negative. Negative for photophobia and visual disturbance. Respiratory: Negative. Negative for choking, chest tightness and stridor. Cardiovascular: Negative. Negative for chest pain. Gastrointestinal: Negative. Negative for abdominal distention, abdominal pain and rectal pain. Genitourinary: Negative. Musculoskeletal: Negative. Allergic/Immunologic: Negative. Neurological: Negative. Negative for seizures, facial asymmetry and speech difficulty. Hematological: Negative. Psychiatric/Behavioral: Negative. Negative for behavioral problems, hallucinations and self-injury. Objective Objective: Vitals: 05/07/25 1021 BP: 138/84 BP Location: Left arm Patient Position: Sitting Pulse: 82 Weight: 191 lb 8 oz (86.9 kg) Height: 5' 8 (1.727 m) Body mass index is 29.12 kg/m??. Physical Exam Vitals reviewed. Constitutional: Appearance: Normal appearance. HENT: Head: Normocephalic and atraumatic. Nose: Nose normal. Eyes: Extraocular Movements: Extraocular movements intact. Conjunctiva/sclera: Conjunctivae normal. Neck: Comments: No obvious thyroid enlargement. No palpable nodules and cervical lymphoadenopathy Cardiovascular: Rate and Rhythm: Normal rate and regular rhythm. Pulses: Normal pulses. Heart sounds: Normal heart sounds. Pulmonary: Effort: Pulmonary effort is normal. No respiratory distress. Breath sounds: Normal breath sounds. Abdominal: General: Abdomen is flat. Musculoskeletal: General: Normal range of motion. Cervical back: Normal range of motion. Right lower leg: No edema. Left lower leg: No edema. Skin: General: Skin is warm and dry. Neurological: General: No focal deficit present. Mental Status: She is alert and oriented to person, place, and time. Mental status is at baseline. Psychiatric: Mood and Affect: Mood normal. 05/07/2025 10:45 AM Monofilament & Eye Exam Foot Exam Performed? Yes R Posterior Tibial Present L Posterior Tibial Present R Dorsalis Pedis Present L Dorsalis Pedis Present R Monofilament Present L Monofilament Present R Inspection Normal L Inspection Normal Assessment and Plan: Diagnoses and all orders for this visit: Type 2 diabetes mellitus with hyperglycemia, without long-term current use of insulin (HCC) (Chronic) Assessment & Plan: Glycemic control is stable and at goal. She is to continue present medication regimen for now Orders: - semaglutide (OZEMPIC) 2 mg/dose (8 mg/3 mL) SubQ Pen Injector; Inject 2 mg under the skin once a week. Dispense: 9 mL; Refill: 3 - COMPREHENSIVE METABOLIC PANEL; Future; Expected date: 10/05/2025 (Before Next Appt) - HEMOGLOBIN A1C; Future; Expected date: 10/05/2025 (Before Next Appt) - ALBUMIN/CREATININE RATIO, RANDOM URINE; Future; Expected date: 10/05/2025 (Before Next Appt) Hypertension associated with type 2 diabetes mellitus (HCC) (Chronic) Assessment & Plan: Blood pressure is stable on a current medication regimen. The patient is to continue present medication regimen. Hyperlipidemia associated with type 2 diabetes mellitus (HCC) (Chronic) Assessment & Plan: The patient is to have fasting lipid profile done prior to the next visit Orders: - LIPID PANEL REFLEX; Future; Expected date: 10/05/2025 (Before Next Appt) Metabolic dysfunction-associated steatotic liver disease (MASLD) Assessment & Plan: Stable on GLP-1 RA Medications Discontinued During This Encounter Medication Reason semaglutide (OZEMPIC) 2 mg/dose (8 mg/3 mL) SubQ Pen Injector Reorder The independent review of chart notes, labs, physical findings and analysis of appropriate medications represents a decision of high complexity with regard to health threatening risks, benefits, and side effects of medicines and underlying conditions managed. Return in about 6 months (around 11/04/2025). Answers submitted by the patient for this visit: Office Visit on 05/07/2025 10:30 AM with Nurys Burrows MD Review of Symptoms: Please check all that currently apply to you. (Submitted on 05/06/2025) weight loss: No hematochezia: No painful intercourse: No Incontinence: No vaginal bleeding: No joint pain: No joint swelling: No loss of consciousness: No swollen glands: No documented in this encounter Plan of Treatment Upcoming Encounters Date Type Department Care Team (Late st Contact Info) Description 05/13/2025 7:30 AM EST Hospital Encounter [facility] [address] [place] [address] Melvin Mitchell, KATIEM [address] [facility] [address] [place], [place] [id number] Preop testing (Primary Dx) 05/13/2025 7:30 AM EST Anesthesia Event [facility] [address] [place] [address] Cheryl Cerda, TRANSLATOR DEAF [address] [place], [place] [id number] 05/13/2025 7:30 AM EST - 05/13/2025 10:00 AM EST Surgery [facility] [address] [place] [address] Melvin Mitchell DPM [address] [facility] [address] [place], [place] [id number] BUNIONECTOMY DAQUAN 05/19/2025 11:00 AM EST Office Visit [facility] [place] [address] [facility] [address] [place] [address] Melvin Mitchell DPM [address] [address] 06/24/2025 9:20 AM EST [facility] [address] [place] [address] Mechelle Glez, [address] [place], [place] [id number] 08/25/2025 12:40 PM EST Office Visit [facility] [address] [place] [id number] Lucille Basilio DO [address] [place] [address] Scheduled Orders Name Type Priority Associated Diagnoses Orde r Schedule LIPID PANEL REFLEX Lab Routine Hyperlipidemia associated with type 2 diabetes mellitus (HCC) Expected: 10/05/2025 (Approximate), Expires: 01/03/2026 COMPREHENSIVE METABOLIC PANEL Lab Routine Type 2 diabetes mellitus with hyperglycemia, without long-term current use of insulin (HCC) Expected: 10/05/2025 (Approximate), Expires: 01/03/2026 HEMOGLOBIN A1C Lab Routine Type 2 diabetes mellitus with hyperglycemia, without long-term current use of insulin (HCC) Expected: 10/05/2025 (Approximate), Expires: 01/03/2026 ALBUMIN/CREATININE RATIO, RANDOM URINE Lab Routine Type 2 diabetes mellitus with hyperglycemia, without long-term current use of insulin (HCC) Expected: 10/05/2025 (Approximate), Expires: 01/03/2026 Scheduled Procedures Name Priority Associated Diagnoses Date/Ti [...] hyperglycemia, without long-term current use of insulin (HCC)- Primary Hypertension associated with type 2 diabetes mellitus (HCC) Hyperlipidemia associated with type 2 diabetes mellitus (HCC) 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 Reorder 03/22/2025 05/07/2025 documented as of this encounter Historical Medications * This list may reflect changes made after this encounter. butalbital-acetam inophen-caffeine (FIORICET) 50-300-40 mg Oral Capsule Take 1 Capsule by mouth every 6 hours as needed for Headaches. 04/27/2025 added in this encounter Additional Health Concerns Active Problems Noted Date Diagnosed Date Autogenerated Problem 04/14/2025 documented as of this encounter Care Teams Shuttle Van Driver Relationship Specialty Start Date End Date Tony Roberts MD PCP - General Family Medicine 04/04/21 documented as of this encounter
--- OUTSIDE RECORDS SUMMARY | 2025-05-07 10:54 | XMS_ITS | Encounter Summary ---
Author Organization [facility] [place] [address] Care Team Providers Care Pellet Press Operator Name Role Phone Tony Roberts MD Primary Care Provider [phone] Encounter Details Date Type Department Care Team (Latest Contact Info) Description 05/07/2025 11:54 AM EDT - 05/07/2025 11:59 PM EDT Hospital Encounter FTT EKG [address] [place] [address] Preop testing Discharge Disposition: Home or Self Care Social [...] Blood Sugar Diagnostic (ONETOUCH VERIO TEST STRIPS) [facility] StripIndications:Ty pe 2 diabetes mellitus with hyperglycemia, without long-term current use of insulin (HCC) 1 Strip by [facility].(Non-Drug ; Combo Route) route 2 times daily. Use to check blood glucose 2 times daily. E11.65 100 Each 01/22/2023 butalbital-acetamin ophen-caffeine (FIORICET) 50-300-40 mg Oral Capsule Take 1 Capsule by mouth every 6 hours as needed for Headaches. 04/27/2025 celecoxib (CELEBREX) 100 mg Oral CapsuleIndications: Chronic foot pain, right Take 1 Capsule by mouth 2 times daily (with meals) for 30 days. 60 Capsule 04/15/2025 Comp Stocking,Knee,Long, Medium [facility] MiscIndications:Brendan ous insufficiency of both lower extremities Wear daily 2 Each 5 05/07/2023 DULoxetine (CYMBALTA) 60 mg Oral Capsule, Delayed Release(E.C.) Take 60 mg by mouth daily. ergocalciferol (VITAMIN D) 1,250 mcg (50,000 unit) Oral CapsuleIndications: Preop examination Take 1 Capsule by mouth once a week for 12 doses. 12 Capsule 04/15/2025 fluticasone propionate (FLONASE) 50 mcg/actuation Nasl [place], SuspensionIndicatio ns:ETD (Eustachian tube dysfunction), right 2 Sprays by Nasal route daily. 1 Each 5 02/23/2025 lancets (ONETOUCH DELICA PLUS LANCET) 33 gauge [facility] MiscIndications:Typ e 2 diabetes mellitus with hyperglycemia, without long-term current use of insulin (HCC) 1 Each by [facility].(Non-Drug ; Combo Route) route 2 times daily. [...] 10 mg Oral Tablet 10 mg. 08/30/2023 semaglutide (OZEMPIC) 2 mg/dose (8 mg/3 mL) SubQ Pen InjectorIndications :Type 2 diabetes mellitus with hyperglycemia, without long-term current use of insulin (HCC) Inject 2 mg under the skin once a week. 9 mL 3 05/07/2025 valACYclovir (VALTREX) 1 gram Oral Tablet Take 1,000 mg by mouth 2 times daily. as needed zolpidem (AMBIEN) 10 mg Oral Tablet 03/03/2025 documented as of this encounter Discharge Disposition Disposition Code Departure Means Destination Home or Self Care documented in this encounter Plan of Treatment Upcoming Encounters Date Type Department Care Team (Late st Contact Info) Description 05/13/2025 7:30 AM EST Hospital Encounter FTT PERIOP [address] [place] [address] Melvin Mitchell DPM [address] [address] Preop testing (Primary Dx) 05/13/2025 7:30 AM EST Anesthesia Event FTT PERIOP [address] [place] [address] Cheryl Cerda, SUPERVISOR BONDING [address] [facility] [address] 05/13/2025 7:30 AM EST - 05/13/2025 10:00 AM EST Surgery FTT PERIOP [address] [place] [address] Melvin Mitchell DPM [address] [address] BUNIONECTOMY DAQUAN 05/19/2025 11:00 AM EST Office Visit [facility] [place] [address] [place] [address] Melvin Mitchell DPM [address] [address] 06/24/2025 9:20 AM EST Office Visit [facility] NPTFTT [address] [place] [address] Mechelle Glez, DO [address] [place] [id number] 08/25/2025 12:40 PM EST Office Visit [facility] Neurology [place] [address] [place] [address] Lucille Basilio, DO [address] [place] [address] Scheduled Procedures Name Priority Associated [...] Procedure Name Priority Date/Time Associated Diagnosis Comments EK EKG 12 LEAD Routine 05/07/2025 12:05 PM EDT Preop testing documented in this encounter Results * EK EKG 12 LEAD (05/07/2025 12:05 PM EDT) Anatomical Region Laterality Modality Electrocardiogra phy 05/07/2025 12:0 2 PM EDT Impressions 05/08/2025 1:57 PM EDT [facility] Test Date: 2025-05-07 Pat Name: QIANA KUO Department: DEPID Room: Gender: Female Traffic Signal Repairer: Lizzie : 1965 Requested By: GIANFRANCO GARCIA Order Number: [id number] Reading MD: Katlin Alexandre Measurements Intervals [place] Rate: 65 P: 23 OH: 152 QRS: 5 QRSD: 85 T: 42 QT: 388 QTc: 405 Interpretive Statements SINUS RHYTHM Electronically Signed On 05-08-2025 13:57:28 EDT by Katlin Alexandre Narrative Procedure Note Katlin Alexandre MD - 05/08/[address] [facility] Test Date: 2025-05-07 Pat Name: QIANA KUO Department: DEPID Room: Gender: Female Traffic Signal Repairer: Mlw : 1965 Requested By: GIANFRANCO GARCIA Order Number: [id number] Reading MD: Katlin Alexandre Measurements Intervals [place] Rate: 65 P: 23 [place]: 152 QRS: 5 QRSD: 85 T: 42 QT: 388 QTc: 405 Interpretive Statements SINUS RHYTHM Electronically Signed On 05-08-2025 13:57:28 EDT by Katlin Alexandre us Gianfranco Starks MD IMG ECG ORDERABLES Final Result documented in this encounter Visit Diagnoses Diagnosis Preop testing- Primary Preoperative examination, unspecified Tailor's bunion of right foot Toe pain, right Pain in limb Hammer toe of right foot Chronic foot pain, right Preop testing Preoperative examination, unspecified Tailor's bunion of right foot Toe pain, right Pain in limb Hammer toe of right foot Chronic foot pain, right documented in this encounter Additional Health Concerns Active Problems Noted Date Diagnosed Date Autogenerated Problem 04/14/2025 documented as of this encounter Care Teams Pellet Press Operator Relationship Specialty Start Date End Date Tony Roberts MD PCP - General Family Medicine 04/04/21 documented as of this encounter
[2025-05-09 19:06] VITALS: BP 161/82; PULSE 81; RESP 18; TEMP 36.7; O2SAT 100; BMI 28.8
--- OUTSIDE RECORDS SUMMARY | 2025-05-09 19:17 | XMS_ITS | Encounter Summary ---
Author Organization [place] [address] Care Team Providers Care Supervisor Intelligence Analyst Name Role Phone Tony Roberts MD Primary Care Provider [phone] Reason for Visit * Reason Comments Pharmacy Diabetes Management Ozempic Encounter Details Date Type Department Care Team (Latest Contact Info) Description 03/22/2025 Specialty Pharmacy [facility] [address] [place], [place] [id number] Kassandra Mckinnon CPhT Pharmacy Diabetes Management (Ozempic) Social History Tobacco Use Types Packs/Day Years [...] on file documented as of this encounter Ordered Prescriptions Prescription Sig Dispense Quantity Refills Last Filled Start Date End Date semaglutide (OZEMPIC) 2 mg/dose (8 mg/3 mL) SubQ Pen InjectorIndication s:Type 2 diabetes mellitus with hyperglycemia, without long-term current use of insulin (HCC) Inject 2 mg under the skin once a week. 9 mL 3 03/22/2025 05/07/2025 documented in this encounter Progress Notes * Kassandra Mckinnon CPhT - 03/22/2025 9:05 AM EDT [facility] Received notice of need for PA for Ozempic 2mg via phone call. Will request script for benefits investigation. * Nia Auguste MA - 03/22/2025 9:05 AM EDT Script sent to specialty pharmacy per request for Ozempic. * Crystal Hassan RPH - 03/22/2025 9:05 AM EDT [facility] Prescription received for Ozempic (2mg/dose). Prescription requires prior authorization. Will complete clinical review. Patient will need IA if able to fill here. * Crystal Hassan RPH - 03/22/2025 9:05 AM EDT [facility] - Cardiometabolic Clinical Review Roseanne Kuo is a 59 y.o. female. Cardiometabolic: Patient was prescribed Semaglutide SubQ (Ozempic) 2mg SUBQ weekly as continuation of therapy for T2DM (E11.65). No Known Allergies Risk/ Status: Hysterectomy Test: No results found for: PREGTESTUR Lab Results Component Value Date HGBA1C 5.7 (H) 10/12/2024 HGBA1C 5.1 11/13/2023 HGBA1C 5.9 05/07/2023 Wt Readings from Last 3 Encounters: 03/10/25 186 lb (84.4 kg) 02/23/25 185 lb (83.9 kg) 10/14/24 186 lb (84.4 kg) Estimated body mass index is 28.28 kg/m?? as calculated from the following: Height as of 03/10/25: 5' 8 (1.727 m). Weight as of 03/10/25: 186 lb (84.4 kg). Lab Results Component Value Date CREATININE 0.83 10/12/2024 BUN 13 10/12/2024 AST 31 10/12/2024 ALT 51 (H) 10/12/2024 Fibrosis 4 Score: .96 For patients with... F0-F1 Indeterminate F3-F4 CRAFT <1.30 1.30-2.67 >2.67 HCV <1.45 1.45-3.25 >3.25 *The Fib-4 Fibrosis score may not be as accurate in patients <35 years old and >65 years old.Use caution when interpreting results Lab Results Component Value Date ALT 51 (H) 10/12/2024 AST 31 10/12/2024 PLT 272 01/01/2024 Lab Results Component Value Date URINEMICROAL <12.0 11/13/2023 Lab Results Component Value Date CREATININE 0.83 10/12/2024 BUN 13 10/12/2024 NA 140 10/12/2024 K 3.9 10/12/2024 CL 105 10/12/2024 CO2 27 10/12/2024 GFRAFRAM 90 10/27/2020 GFRNONAFRAM 78 10/27/2020 Lab Results Component Value Date GFRCKDEPI 80 10/12/2024 GFRCKDEPI 75 01/01/2024 GFRCKDEPI 71 11/13/2023 Most Recent Diagnostic Polysomnography (PSG) No data recorded No data recorded No data recorded No data recorded No data recorded No data recorded No data recorded Current Outpatient Medications - WARNING: List may be incomplete due to filtering Medication Sig OZEMPIC Inject 2 mg under the skin once a week. amLODIPine Take 10 mg by mouth daily. atorvastatin Take 20 mg by mouth daily. ONETOUCH VERIO TEST STRIPS 1 Strip by [place].(Non-Drug; Combo Route) route 2 times daily. Use to check blood glucose 2 times daily. E11.65 Comp Stocking,Knee,Long,Medium Wear daily DULoxetine Take 60 mg by mouth daily. fluticasone propionate 2 Sprays by Nasal route daily. lancets 1 Each by Misc.(Non-Drug; Combo Route) route 2 times daily. Use to check blood glucose 2 times daily. E11.65 losartan Take 100 mg by mouth daily. ondansetron TAKE 1 TABLET BY MOUTH 3 TIMES A DAY NEEDED FOR NAUSEA AND VOMITING pantoprazole Take 1 Tablet by mouth 2 times daily. prochlorperazine 10 mg. valACYclovir Take 1,000 mg by mouth 2 times daily. as needed zolpidem Previous medications utilized: metformin, Ozempic Medication being used with prescribed meds: none Type II Diabetes Mellitus HbA1c of 5.7 is at goal of <7% per ADA guidelines on current therapy. Patient will not use with other GLP-1 agonist therapy. Clinical Impression: Clinically appropriate to continue therapy. Crystal Hassan [facility] Specialty Pharmacist * Cherelle Pepe CPhT - 03/22/2025 9:05 AM EDT [facility] Prior Authorization Submitted PA for Ozempic to [employer] insurance via [employer] (Eduardo [id number]). Will follow up on 03/24. * Marco Hernandez CPhT - 03/22/2025 9:05 AM EDT [facility] Prior Authorization Determination Received notice of PA approval for Ozempic. PA approved from 02/20/25 to 03/22/26. Patient is able to fill at [facility]. Copay is 70. Patient has commercial insurance and may qualify for copay card. Will route to pharmacist to complete initial assessment prior to therapy initiation. Medication is able to be delivered via [employer]. * Barry Yang RPH - 03/22/2025 9:05 AM EDT Specialty Pharmacy - T2DM Initial Assessment Roseanne Kuo is a 59 y.o. female contacted today regarding her initial assessment of Ozempic. No answer, unable to leave voicemail. MB full. [facility]. Barry Yang RPH Specialty Pharmacist * Crystal Hassan RPH - 03/22/2025 9:05 AM EDT Specialty Pharmacy - T2DM Initial Assessment Roseanne Kuo is a 59 y.o. female contacted today regarding her initial assessment of Ozempic. No answer, unable to leave voicemail. VM full. Crystal Hassan [facility] Specialty Pharmacist * Crystal Hassan RPH - 03/22/2025 9:05 AM EDT Specialty Pharmacy - T2DM Initial Assessment Roseanne Kuo is a 59 y.o. female contacted today regarding her initial assessment of Ozempic. No answer, unable to leave voicemail. Crystal Hassan [facility] Specialty Pharmacist * Juan Francisco Myrick PharmD - 03/22/2025 9:05 AM EDT [facility] Three unsuccessful attempts have been made to reach patient regarding the prescription. No contact letter will be sent. If no response from patient in one week, patient will be disenrolled from specialty pharmacy services. * Juan Francisco Myrick PharmD - 03/22/2025 9:05 AM EDT [facility] Three unsuccessful attempts have been made to reach patient regarding the prescription. No contact letter will be sent. No response from patient in one week, therefore patient will be disenrolled from specialty pharmacy services. documented in this encounter Miscellaneous Notes * Addendum Note - Nia Auguste MA - 03/22/2025 9:05 AM EDTAddended by: NIA AUGUSTE on: 03/22/2025 10:25 AM Modules accepted: Orders documented in this encounter Plan of Treatment Upcoming Encounters Date Type Department Care Team (Late st Contact Info) Description 05/13/2025 7:30 AM EST Hospital Encounter FTT PERIOP [address] [place] [address] Melvin Mitchell, KATIEM [address] [address] Preop testing (Primary Dx) 05/13/2025 7:30 AM EST Anesthesia Event FTT PERIOP [address] [place] [address] Cheryl Cerda, INSTRUCTIONAL SUPPORT SERVICES DIRECTOR [address] [facility] [address] [place] [address] 05/13/2025 7:30 AM EST - 05/13/2025 10:00 AM EST Surgery FTT PERIOP [address] [place] [address] Melvin Mitchell, MEGAN [address] [address] BUNIONECTOMY DAQUAN 05/19/2025 11:00 AM EST Office Visit [facility] Pod[facility]ry [place] [address] [place] [address] Melvin Mitchell, KATIEM [address] [address] 06/24/2025 9:20 AM EST Office Visit [facility] NPTFTT [address] [place] [address] Mechelle Glez, DO [address] [place], [place] [address] 08/25/2025 12:40 PM EST Office Visit [facility] Neurology [place] [address] [place] [address] Lucille Basilio DO [address] [place] [address] Scheduled Procedures Name Priority Associated Diagnoses [...] as of this encounter Visit Diagnoses Diagnosis Type 2 diabetes mellitus with hyperglycemia, without long-term current use of insulin (HCC) Preop testing- Primary Preoperative examination, unspecified Tailor's bunion of right foot Toe pain, right Pain in limb Hammer toe of right foot Chronic foot pain, right documented in this encounter Discontinued Medications Medication Sig Discontinue Reason Start Date End Da te semaglutide (OZEMPIC) 2 mg/dose (8 mg/3 mL) SubQ Pen InjectorIndications:T ype 2 diabetes mellitus with hyperglycemia, without long-term current use of insulin (HCC) Subcutaneous (Inject under the skin) 2 mg once a week. Reorder 10/14/2024 03/22/2025 documented as of this encounter Additional Health Concerns Active Problems Noted Date Diagnosed Date Autogenerated Problem 04/14/2025 documented as of this encounter Care Teams Supervisor Intelligence Analyst Relationship Specialty Start Date End Date Tony Roberts MD PCP - General Family Medicine 04/04/21 documented as of this encounter
--- OUTSIDE RECORDS SUMMARY | 2025-05-09 19:17 | XMS_ITS | Encounter Summary ---
Author Organization [facility] Address [address] [address] Care Team Providers Care Revenue Settlements Administrator Name Role Phone Tony Roberts MD Primary Care Provider [phone] Reason for Visit * Reason Onset Date Comments Results 04/29/2025 MRI Encounter Details Date Type Department Care Team (Late st Contact Info) Description 04/29/2025 Results Follow-Up [facility]NT[facility] [address] [address] Virgie Saleem RMA MRI BRAIN W WO CONTRAST Social History Tobacco Use Types Packs/Day Years [...] on file documented as of this encounter Miscellaneous Notes * Telephone Encounter - Virgie Saleem RMA - 04/29/2025 4:38 PM EDT Mailbox full, unable to lvm. Will try again. * Telephone Encounter - Virgie Saleem RMA - 04/29/2025 4:38 PM EDT ----- Message from Joseph Mccoy MD sent at 04/29/2025 4:28 PM EDT ----- Please let her know the MRI showed no concerning findings. Next step is to see Neurology. ----- Message ----- From: Jaskaran, Rad Results In Sent: 04/29/2025 4:16 PM EDT To: Joseph Mccoy MD documented in this encounter Plan of Treatment Upcoming Encounters Date Type Department Care Team (Late st Contact Info) Description 05/13/2025 7:30 AM EST Hospital Encounter FTT PERIOP [address] [place] [address] Melvin Mitchell DPM [address] [address] Preop testing (Primary Dx) 05/13/2025 7:30 AM EST Anesthesia Event FTT PERIOP [address] [place] [address] Cheryl Cerda, MARIALUISA [address] [facility] [place] [address] 05/13/2025 7:30 AM EST - 05/13/2025 10:00 AM EST Surgery FTT PERIOP [address] [place] [address] Melvin Mitchell DPM [address] [address] BUNIONECTOMY DAQUAN 05/19/2025 11:00 AM EST Office Visit [facility] [place] [address] [place] [address] [address] [place] [address] Melvin Mitchell DPM [address] [address] 06/24/2025 9:20 AM EST Office Visit [facility] N[facility] [address] [place] [address] Mechelle Glez, DO [address] [place] [address] 08/25/2025 12:40 PM EST Office Visit [facility] Neurology [place] [address] [place] [address] Lucille Basilio, DO [address] [facility] [address] [place] [address] Scheduled Procedures Name Priority Associated [...] documented as of this encounter Visit Diagnoses Not on filedocumented in this encounter Additional Health Concerns Active Problems Noted Date Diagnosed Date Autogenerated Problem 04/14/2025 documented as of this encounter Care Teams Revenue Settlements Administrator Relationship Specialty Start Date End Date Tony Roberts MD PCP - General Family Medicine 04/04/21 documented as of this encounter
--- OUTSIDE RECORDS SUMMARY | 2025-05-09 19:17 | XMS_ITS | Encounter Summary ---
Author Organization [facility] [place] [address] Care Team Providers Care Tongue And Groove Machine Feeder Name Role Phone Tony Roberts MD Primary Care Provider [phone] Encounter Details Date Type Department Care Team (Latest Contact Info) Description 04/14/2025 Travel Social History Tobacco Use Types Packs/Day Years [...] on file documented as of this encounter Plan of Treatment Upcoming Encounters Date Type Department Care Team (Late st Contact Info) Description 05/13/2025 7:30 AM EST Hospital Encounter FTT PERIOP [address] [place] [address] Melvin Mitchell DPM [address] [place] [phone] Preop testing (Primary Dx) 05/13/2025 7:30 AM EST Anesthesia Event FTT PERIOP [address] [place] [address] Cheryl Cerda APRN [address] [facility] [address] [place], [place] [id number] 05/13/2025 7:30 AM EST - 05/13/2025 10:00 AM EST Surgery FTT PERIOP [address] [place] [address] Melvin Mitchell, DPM [address] [facility] [address] [place], [place] [phone] BUNIONECTOMY DAQUAN 05/19/2025 11:00 AM EST Office Visit [facility] Pod[facility] [place] [address] [place] [address] Melvin Mitchell, DPM [address] [facility] [address] [place] [address] 06/24/2025 9:20 AM EST Office Visit [facility] [address] [place] [address] Mechelle Glez DO [address] [place], [place] [address] 08/25/2025 12:40 PM EST Office Visit [facility] Neurology [facility] [address] [place] [address] Lucille Basilio DO [address] [place] [address] Scheduled Procedures Name Priority Associated [...] documented as of this encounter Care Teams Tongue And Groove Machine Feeder Relationship Specialty Start Date End Date Tony Roberts MD PCP - General Family Medicine 04/04/21 documented as of this encounter
--- OUTSIDE RECORDS SUMMARY | 2025-05-09 19:17 | XMS_ITS | Encounter Summary ---
Author Organization [place] [address] Care Team Providers Care Clean Room Assembler Name Role Phone Tony Roberts MD Primary Care Provider [phone] Reason for Visit * Reason Onset Date Comments Other 02/01/2025 Encounter Details Date Type Department Care Team (Late st Contact Info) Description 02/01/2025 Telephone [facility] Pod[facility] [place] [address] [place] [address] Melvin Mitchell, MEGAN [address] [facility] [phone] Other Social History Tobacco Use Types Packs/Day Years [...] encounter Miscellaneous Notes * Telephone Encounter - Estella Ricketts - 03/22/2025 8:16 AM EDT Roseanne called and said that nobody has called her to set up the surgery yet and that she is needing to do her FMLA paperwork and set up her pre/post op appointments. * Telephone Encounter - Shelly Lanier MA - 02/09/2025 9:36 AM EDT Called patient. She would like surgery on May 13. She will need to come in for a pre op. I let her know that we need her to do consent within.30 days. She said she would call back to schedule because.she has a new work rolf and cannot submit the days. * Telephone Encounter - Alison Gan - 02/09/2025 9:13 AM EDT Shelly, I did relay the message to Roseanne and she ask that you call her back, she is wanting to knowif she can schedule surgery first then make the appointment. 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 * Telephone Encounter - Shelly Lanier MA - 02/09/2025 8:38 AM EDT Tried to call patient back. She needs an appointment to go over surgery details and sign consent. Can schedule her next opening. Her mailbox was full so I could not leave a message. * Telephone Encounter - Caterina Frank - 02/01/2025 12:45 PM EDT [phone] Roseanne Mitchell patient Patient was seen once on 09/09. She has decided to go forward with surgery. Please contact her. documented in this encounter Plan of Treatment Upcoming Encounters Date Type Department Care Team (Late st Contact Info) Description 05/13/2025 7:30 AM EST Hospital Encounter FTT PERIOP [address] [place] [address] Melvin Mitchell DPM [address] [email or web address] [phone] Preop testing (Primary Dx) 05/13/2025 7:30 AM EST Anesthesia Event FTT PERIOP [address] [place] [address] Cheryl Cerda, SNOW FENCE ERECTOR [address] [place] [address] 05/13/2025 7:30 AM EST - 05/13/2025 10:00 AM EST Surgery FTT PERIOP [address] [place] [address] Melvin Mitchell DPM [address] [email or web address] [phone] BUNIONECTOMY DAQUAN 05/19/2025 11:00 AM EST Office Visit [facility] [place] [address] [facility] 200 [place] [address] Melvin Mitchell, KATIEM [address] [address] 06/24/2025 9:20 AM EST Office Visit [facility] N[facility] [address] [place] [address] Mechelle Glez, DO [address] [place], [place] [address] 08/25/2025 12:40 PM EST Office Visit [facility] Neurology [facility] [address] [place] [address] Lucille Basilio, DO [address] [address] [place] [address] Scheduled Procedures Name Priority Associated Diagnoses Date/Ti me BUNIONECTOMY DAQUAN Tailor's bunion of right foot Toe pain, right Hammer toe of right foot Chronic foot pain, right 05/13/2025 7:30 AM EST HAMMER TOE REPAIR Tailor's bunion of right foot Toe pain, right Hammer toe of right foot Chronic foot pain, right 05/13/2025 7:30 AM EST documented as of this encounter Visit Diagnoses Not on filedocumented in this encounter Care Teams Clean Room Assembler Relationship Specialty Start Date End Date Tony Roberts MD PCP - General Family Medicine 04/04/21 documented as of this encounter
--- OUTSIDE RECORDS SUMMARY | 2025-05-09 19:17 | XMS_ITS | Encounter Summary ---
Author Organization [facility] [place] [address] Care Team Providers Care Rn Rehabilitation Name Role Phone Tony Roberts MD Primary Care Provider [phone] Encounter Details Date Type Department Care Team (Latest Contact Info) Description 05/06/2025 Travel Social History Tobacco Use Types Packs/Day [...] Encounter [facility] [address] [place] [address] Melvin Mitchell DPM [address] [place] [id number] Preop testing (Primary Dx) 05/13/2025 7:30 AM EST Anesthesia Event [facility] [address] [place] [address] Cheryl Cerda, MARIALUISA [address] [address] [place], [place] [id number] 05/13/2025 7:30 AM EST - 05/13/2025 10:00 AM EST Surgery [facility] [address] [place] [address] Melvin Mitchell, DPM [address] [facility] [address] [place], [place] [id number] BUNIONECTOMY DAQUAN 05/19/2025 11:00 AM EST Office Visit [facility] [place] [address] [place] [address] Melvin Mitchell, DPM [address] [facility] [address] [place] [address] 06/24/2025 9:20 AM EST Office Visit [facility] [address] [place] [address] Mechelle Glez DO [address] [place], [place] [id number] 08/25/2025 12:40 PM EST Office Visit [facility] Neurology [facility] [address] [place] [address] Lucille Basilio DO [address] [facility] [address] [place] [address] Scheduled Procedures Name Priority Associated [...] documented as of this encounter Care Teams Rn Rehabilitation Relationship Specialty Start Date End Date Tony Roberts MD PCP - General Family Medicine 04/04/21 documented as of this encounter
--- OUTSIDE RECORDS SUMMARY | 2025-05-09 19:17 | XMS_ITS | Encounter Summary ---
Author Organization [facility] [place] [address] Care Team Providers Care Cambering Machine Operator Name Role Phone Tony Roberts MD Primary Care Provider [phone] Encounter Details Date Type Department Care Team (Latest Contact Info) Description 05/07/2025 Travel Social History Tobacco Use Types Packs/Day [...] Encounter [facility] [address] [place] [address] Melvin Mitchell, MEGAN [address] [id number] Preop testing (Primary Dx) 05/13/2025 7:30 AM EST Anesthesia Event [facility] [address] [place] [address] Cheryl Cerda APRN [address] [facility] [place] [address] 05/13/2025 7:30 AM EST - 05/13/2025 10:00 AM EST Surgery [facility] [address] [place] [address] Melvin Mitchell, DPM [address] [facility] [address] [place], [place] [id number] BUNIONECTOMY DAQUAN 05/19/2025 11:00 AM EST Office Visit [facility] Pod[facility]ry [place] [address] [facility] 200 [place] [address] Melvin Mitchell, KATIEM [address] [facility] [address] [place] [address] 06/24/2025 9:20 AM EST Office Visit [facility] [address] [place] [address] Mechelle Glez DO [address] [place], [place] [id number] 08/25/2025 12:40 PM EST Office Visit [facility] Neurology [facility] [address] [place] [address] Lucille Basilio DO [address] [facility] [address] [place] [address] Scheduled Procedures Name Priority Associated [...] documented as of this encounter Care Teams Cambering Machine Operator Relationship Specialty Start Date End Date Tony Roberts MD PCP - General Family Medicine 04/04/21 documented as of this encounter
--- OUTSIDE RECORDS SUMMARY | 2025-05-09 19:17 | XMS_ITS | Encounter Summary ---
Author Organization [place] [address] Care Team Providers Care Pole Frame Construction Worker Name Role Phone Tony Roberts MD Primary Care Provider [phone] Encounter Details Date Type Department Care Team (Late st Contact Info) Description 04/13/2025 Orders Only [facility] [address] [place] [address] Shelly Lanier MA Tailor's bunion of right foot (Primary Dx); Toe pain, right; Hammer toe of right [...] [facility] [address] [place] [place] [address] Melvin Mitchell, MEGAN [address] [facility] [address] [place] [address] Preop testing (Primary Dx) 05/13/2025 7:30 AM EST Anesthesia Event [facility] [address] [place] [address] Cheryl Cerda, CAR SUPPLIER [address] [place], [place] [id number] 05/13/2025 7:30 AM EST - 05/13/2025 10:00 AM EST Surgery [facility] [address] [place] [address] Melvin Mitchell, DPM [address] [facility] [address] [place], [place] [id number] BUNIONECTOMY DAQUAN 05/19/2025 11:00 AM EST Office Visit [facility] [place] [address] [place] [address] 200 [place] [address] Melvin Mitchell, MEGAN [address] [facility] [address] [place] [address] 06/24/2025 9:20 AM EST Office Visit [facility] [address] [place] [address] Mechelle Glez, DO [address] [place], [place] [id number] 08/25/2025 12:40 PM EST Office Visit [facility] Neurology [facility] [address] [place] [id number] Lucille Basilio, DO [address] [facility] 100 [place] [address] Scheduled Orders Name Type Priority Associated Diagnoses Orde r Schedule SURGICAL/PROCEDURE CASE REQUEST Procedures Routine Tailor's bunion of right foot Toe pain, right Hammer toe of right foot Chronic foot pain, right Ordered: 04/13/2025 Scheduled Procedures Name Priority Associated Diagnoses Date/Ti me BUNIONECTOMY DAQUAN Tailor's bunion of right foot Toe pain, right Hammer toe of right foot Chronic foot pain, right 05/13/2025 7:30 AM EST HAMMER TOE REPAIR Tailor's bunion of right foot Toe pain, right Hammer toe of right foot Chronic foot pain, right 05/13/2025 7:30 AM EST documented as of this encounter Visit Diagnoses Diagnosis Tailor's bunion of right foot- Primary Toe pain, right Pain in limb Hammer toe of right foot Chronic foot pain, right Preop testing- Primary Preoperative examination, unspecified Tailor's bunion of right foot Toe pain, right Pain in limb Hammer toe of right foot Chronic foot pain, right documented in this encounter Care Teams Pole Frame Construction Worker Relationship Specialty Start Date End Date Tony Roberts MD PCP - General Family Medicine 04/04/21 documented as of this encounter
--- OUTSIDE RECORDS SUMMARY | 2025-05-09 19:17 | XMS_ITS | Encounter Summary ---
Author Organization [place] [address] Care Team Providers Care Flow Coordinator Name Role Phone Tony Roberts MD Primary Care Provider [phone] Encounter Details Date Type Department Care Team (Latest Contact Info) Description 05/03/2025 Results Follow-Up [facility] Diabetes [place] [address] [facility] [address] [place] [id number] Nurys Burrows MD [address] [place] [address] HEMOGLOBIN A1C, MICROALBUMIN/CREATININ E RATIO URINE, COMPREHENSIVE METABOLIC PANEL Social History Tobacco Use Types Packs/Day Years [...] Encounter [facility] [address] [place] [address] Melvin Mitchell, MEGAN [address] [address] Preop testing (Primary Dx) 05/13/2025 7:30 AM EST Anesthesia Event [facility] [address] [place] [address] Cheryl Cerda, ANIME DESIGNER [address] [facility] [address] [place], [place] [id number] 05/13/2025 7:30 AM EST - 05/13/2025 10:00 AM EST Surgery [facility] [address] [place] [address] Melvin Mitchell, DPM [address] [place] [address] [place] [address] BUNIONECTOMY DAQUAN 05/19/2025 11:00 AM EST Office Visit [facility] [place] [address] [place] [address] 200 [place] [id number] Melvin Mitchell DPM [address] [place] [address] 06/24/2025 9:20 AM EST Office Visit [facility] [address] [place] [address] Mechelle Glez, DO [address] [place], [place] [id number] 08/25/2025 12:40 PM EST Office Visit [facility] Neurology [facility] [address] [place] [phone] Lucille Basilio, DO [address] [place] [address] Scheduled Procedures Name Priority Associated Diagnoses Date/Ti ms BUNIONECTOMY DAQUAN Tailor's bunion of right foot [...] documented as of this encounter Care Teams Flow Coordinator Relationship Specialty Start Date End Date Tony Roberts MD PCP - General Family Medicine 04/04/21 documented as of this encounter
--- OUTSIDE RECORDS SUMMARY | 2025-05-09 19:18 | XMS_ITS | Clinical Summary ---
Author Organization [facility] Address [address] [place] [address] Phone Care Team Providers Care Cable Splicing Technician Name Role Phone Tony Roberts MD Primary Care Provider [phone] Allergies Active Allergy Reactions Criticality Noted Date Comments Oxycodone-Acetaminophen Nausea Only 05/07/2025 Medications losartan (COZAAR) 100 mg Oral Tablet Take 100 mg by mouth daily. Active DULoxetine (CYMBALTA) 60 mg Oral Capsule, Delayed Release(E.C.) Take 60 mg by mouth daily. Active atorvastatin (LIPITOR) 20 mg Oral Tablet Take 20 mg by mouth daily. Active Blood Sugar Diagnostic (ONETOUCH VERIO TEST STRIPS) [facility] StripIndications: Type 2 diabetes mellitus with hyperglycemia, without long-term current use of insulin (HCC) 1 Strip by [facility]Non-Drug; Combo Route) route 2 times daily. Use to check blood glucose 2 times daily. E11.65 100 Each 01/23/20 23 Active lancets (ONETOUCH DELICA PLUS LANCET) 33 gauge [facility] MiscIndications:T ype 2 diabetes mellitus with hyperglycemia, without long-term current use of insulin (HCC) 1 Each by [facility]Non-Drug; Combo Route) route 2 times daily. Use to check blood glucose 2 times daily. E11.65 100 Each 01/23/20 23 Active Comp Stocking,Knee,River g,Medium [facility] MiscIndications:V enous insufficiency of both lower extremities Wear daily 2 Each 5 05/07/20 Active amLODIPine (NORVASC) 10 mg Oral Tablet Take 10 mg by mouth daily. 11/05/19 24 Active prochlorperazine (COMPAZINE) 10 mg Oral Tablet 10 mg. 08/30/19 24 Active valACYclovir (VALTREX) 1 gram Oral Tablet Take 1,000 mg by mouth 2 times daily. as needed Active pantoprazole (PROTONIX) 40 mg Oral Tablet, Delayed Release (E.C.) Take 1 Tablet by mouth 2 times daily. 180 Tablet 3 02/28/20 24 Active ondansetron (ZOFRAN) 4 mg Oral Tablet TAKE 1 TABLET BY MOUTH 3 TIMES A DAY NEEDED FOR NAUSEA AND VOMITING 07/21/19 25 Active fluticasone propionate (FLONASE) 50 mcg/actuation Nasl [place], SuspensionIndicat ions:ETD (Eustachian tube dysfunction), right 2 Sprays by Nasal route daily. 1 Each 5 02/24/20 25 Active Additional Information Patient not taking.Reason: Pt electing to not take the medication, Reported on 05/07/2025 zolpidem (AMBIEN) 10 mg Oral Tablet 03/03/20 25 Active ergocalciferol (VITAMIN D) 1,250 mcg (50,000 unit) Oral CapsuleIndication s:Preop examination Take 1 Capsule by mouth once a week for 12 doses. 12 Capsule 04/15/20 25 025 Active celecoxib (CELEBREX) 100 mg Oral CapsuleIndication s:Chronic foot pain, right Take 1 Capsule by mouth 2 times daily (with meals) for 30 days. 60 Capsule 04/15/20 25 025 Active butalbital-acetam inophen-caffeine (FIORICET) 50-300-40 mg Oral Capsule Take 1 Capsule by mouth every 6 hours as needed for Headaches. 04/27/20 25 Active semaglutide (OZEMPIC) 2 mg/dose (8 mg/3 mL) SubQ Pen InjectorIndicatio ns:Type 2 diabetes mellitus with hyperglycemia, without long-term current use of insulin ([facility]) Inject 2 mg under the skin once a week. 9 mL 3 05/07/20 25 Active semaglutide (OZEMPIC) 2 mg/dose (8 mg/3 mL) SubQ Pen InjectorIndicatio ns:Type 2 diabetes mellitus with hyperglycemia, without long-term current use of insulin (HCC) Inject 2 mg under the skin once a week. 9 mL 3 03/22/20 25 025 Discontin ued(Reord er) Active Problems Problem Noted Date Diagnosed Date Ryan's bunion of right foot 04/13/2025 Assessment & Plan (04/25/2025 4:24 PM EDT): Toe pain, right 04/13/2025 Assessment & Plan (04/25/2025 4:24 PM EDT): Hammer toe of right foot 04/13/2025 Assessment & Plan (04/25/2025 4:24 PM EDT): Chronic foot pain, right 04/13/2025 Assessment & Plan (04/25/2025 4:24 PM EDT): Orders: celecoxib (CELEBREX) 100 mg Oral Capsule; Take 1 Capsule by mouth 2 times daily (with meals) for 30 days. Gastroesophageal reflux dise ase with esophagitis without hemorrhage 02/28/2024 History of colon polyps 02/28/2024 Diverticulosis 02/28/2024 Dyspepsia 11/15/2023 Obesity (BMI 30-39.9) 05/07/2023 Assessment & Plan (03/20/2024 9:30 AM EDT): The patient has lost 5% of the total body weight. She is to continue with lifestyle intervention Assessment & Plan (11/15/2023 9:29 AM EDT): The patient has lost 15% of the total body weight. She is to concentrate on lifestyle intervention Assessment & Plan (05/07/2023 1:18 PM EDT): the patient lost 8% of the total body weight Venous insufficiency of both lower extremities 1 Assessment & Plan (05/07/2023 1:17 PM EDT): The patient is to wear compression stockings Iron deficiency anemia 05/07/2023 Assessment & Plan (05/07/2023 1:18 PM EDT): We will rule out underlying iron deficiency Type 2 diabetes mellitus wit h hyperglycemia, without long-term current use of insulin 01/21/2023 Assessment & Plan (05/07/2025 10:45 AM EDT): Glycemic control is stable and at goal. She is to continue present medication regimen for now Assessment & Plan (10/14/2024 2:13 PM EDT): Glycemic control is stable and at goal. Continue Ozempic regimen. She has lost 15% of the total body weight Assessment & Plan (03/20/2024 9:29 AM EDT): Glycemic control is stable and at goal. Continue to monitor on Ozempic Assessment & Plan (11/15/2023 9:29 AM EDT): Glycemic control has normalized. The patient is to decrease the dose of Ozempic down to 1 mg to see whether it has been contributing to dyspepsia. She is to finish her current plan by taking 1 mg dose counting up to 37 clicks. She is to contact me in case of persistent dyspepsia Assessment & Plan (05/07/2023 1:16 PM EDT): Glycemic control has improved and is at goal. She is to continue Ozempic regimen along with lifestyle intervention. We discussed different dietary adjustments to improve Ozempic tolerability. She he is reluctant to lower the dose at this time Assessment & Plan (01/22/2023 11:42 AM EDT): Different aspects of diabetes care as well as treatment goals were discussed with the patient at length. Glycemic control has been suboptimal. #1. The patient is to start regular blood glucose monitoring and bring the information at the time of follow up visit. The patient was provided with a glucometer #2. We will try GLP-1 RA in light of history of fatty liver and obesity. The patient is to try Ozempic with gradual dose titration based on tolerability. She was provided with a sample of the medication. The patient is to have a teaching session with a clinical educator. The patient is to be screened for diabetes related complications according to ADA guidelines. Hypertension associated with type 2 diabetes sunshine litus 01/21/2023 Assessment & Plan (05/07/2025 10:45 AM EDT): Blood pressure is stable on a current medication regimen. The patient is to continue present medication regimen. Assessment & Plan (10/14/2024 2:13 PM EDT): Blood pressure is stable on a current medication regimen. The patient is to continue present medication regimen. Assessment & Plan (03/20/2024 9:29 AM EDT): Blood pressure is well controlled on a current medication regimen. The patient is to continue present medication regimen. Assessment & Plan (11/15/2023 9:29 AM EDT): Continue to monitor on present medication regimen Assessment & Plan (05/07/2023 1:16 PM EDT): Blood pressure is well controlled on a current medication regimen. The patient is to continue present medication regimen. Assessment & Plan (01/22/2023 11:42 AM EDT): Blood pressure is well controlled on a current medication regimen. The patient is to continue present medication regimen. Hyperlipidemia associated with type 2 diabetes timothy cortes 01/21/2023 Assessment & Plan (05/07/2025 10:44 AM EDT): The patient is to have fasting lipid profile done prior to the next visit Assessment & Plan (10/14/2024 2:13 PM EDT): Will measure cholesterol level Assessment & Plan (03/20/2024 9:30 AM EDT): Continue atorvastatin regimen Assessment & Plan (11/15/2023 9:29 AM EDT): Stable on statin therapy Assessment & Plan (05/07/2023 1:17 PM EDT): Continue to monitor on statin regimen Assessment & Plan (01/22/2023 11:42 AM EDT): Continue to monitor on statin regimen Metabolic dysfunction-associ ated steatotic liver disease (MASLD) 01/21/2023 Assessment & Plan (05/07/2025 10:45 AM EDT): Stable on GLP-1 RA Assessment & Plan (10/14/2024 2:13 PM EDT): Stable on GLP-1 RA Assessment & Plan (03/20/2024 9:30 AM EDT): Continue GLP-1 RA for now Assessment & Plan (11/15/2023 9:29 AM EDT): Continue GLP-1 RA for now Assessment & Plan (05/07/2023 1:17 PM EDT): Continue to monitor on GLP-1 RA Assessment & Plan (01/22/2023 11:42 AM EDT): We will start GLP-1 RA Cystocele with rectocele 02/20/2021 Overview (02/20/2021): Added automatically from request for surgery [id number] TIA (transient ischemic attack) 06/23/2016 Congenital spondylolisthesis 10/25/2014 Resolved Problems Problem Noted Date Diagnosed Date Resolved Date Hypokalemia 05/07/2023 10/14/2024 Encounters Date Type Department Care Team Description 05/07/2025 11:54 AM EDT - 05/07/2025 11:59 PM EDT Hospital Encounter [facility] [address] [place] [address] Preop testing Discharge Disposition: Home or Self Care 05/07/2025 10:30 AM EDT Office Visit [place] [address] [facility] [address] [place] [address] Nurys Burrows MD Type 2 diabetes mellitus with hyperglycemia, without long-term current use of insulin (HCC) (Primary Dx); Hypertension associated with type 2 diabetes mellitus (HCC); Hyperlipidemia associated with type 2 diabetes mellitus (HCC); Metabolic dysfunction-associate d steatotic liver disease (MASLD) 05/07/2025 Travel 05/06/2025 Travel 05/03/2025 11:49 AM EDT - 05/03/2025 11:59 PM EDT Hospital Encounter [facility] [address] [address] Type 2 diabetes mellitus with hyperglycemia, without long-term current use of insulin (HCC) Discharge Disposition: Home or Self Care 05/03/2025 Results Follow-Up [facility] Diabetes [address] [place] [address] Nurys Burrows MD HEMOGLOBIN A1C, MICROALBUMIN/CREATINI NE RATIO URINE, COMPREHENSIVE METABOLIC PANEL 04/29/2025 2:39 PM EDT - 04/29/2025 11:59 PM EDT Hospital Encounter [facility] [address] [address] Joseph Mccoy MD Dizziness Discharge Disposition: Home or Self Care 04/29/2025 Results Follow-Up [facility] [address] [facility] [address] [place] [address] Virgie Saleem RMA MRI BRAIN W WO CONTRAST 04/15/2025 10:15 AM EDT Office Visit [facility] [place] [address] [place] [address] Melvin Mitchell DPM Preop examination (Primary Dx); Tailor's bunion of right foot; Toe pain, right; Hammer toe of right foot; Chronic foot pain, right 04/14/2025 Travel 04/13/2025 Orders Only [facility] [address] [place] [address] Shelly Lanier MA Tailor's bunion of right foot (Primary Dx); Toe pain, right; Hammer toe of right foot; Chronic foot pain, right 04/07/2025 10:26 AM EDT - 04/07/2025 11:59 PM EDT Hospital Encounter [facility] [address] [facility]. [place] [id number] Tony Roberts MD Encounter for screening mammogram for malignant neoplasm of breast Discharge Disposition: Home or Self Care 03/23/2025 9:30 AM EDT Office Visit [facility] [address] [facility] [address] [place] [address] Joseph Mccoy MD Dizziness (Primary Dx); Mixed conductive and sensorineural hearing loss of right ear with restricted hearing of left ear; Sensorineural hearing loss (SNHL) of left ear with restricted hearing of right ear; Tinnitus of both ears; Photophobia; History of CT scan of head 03/22/2025 Specialty Pharmacy [facility] [address] [place] [id number] Kassandra Mckinnon CPhT Pharmacy Diabetes Management (Ozempic) 03/14/2025 2:00 PM EDT - 03/14/2025 11:59 PM EDT Hospital Encounter [facility] [address] [place] [address] Joseph Mccoy MD Mixed conductive and sensorineural hearing loss of right ear with restricted hearing of left ear Discharge Disposition: Home or Self Care 03/10/2025 10:30 AM EDT Office Visit [facility] [address] [phone] Joseph Mccoy MD Mixed conductive and sensorineural hearing loss of right ear with restricted hearing of left ear (Primary Dx); Sensorineural hearing loss (SNHL) of left ear with restricted hearing of right ear; Tinnitus of both ears; ETD (Eustachian tube dysfunction), right; Dizziness 02/23/2025 1:00 PM EDT Office Visit [facility] [address] [facility] [address] [place] [address] Joseph Mccoy MD ETD (Eustachian tube dysfunction), right (Primary Dx); Sensorineural hearing loss (SNHL) of left ear with restricted hearing of right ear; Tinnitus of both ears; Mixed conductive and sensorineural hearing loss of right ear with restricted hearing of left ear; Abnormal auditory perception of both ears from Last 3 Months Surgical History Surgery Date Site/Laterality Comments CHOLECYSTECTOMY BREAST SURGERY reduction HYSTERECTOMY FRACTURE SURGERY right ankle debridement WISDOM TOOTH EXTRACTION SPINAL FUSION RECTOCELE REPAIR 04/03/2021 N/A POSTERIOR REPAIR (RECTOCELE REPAIR; Surgeon: Tony Hansen MD; Location: [facility] MAIN OR; Service: Gynecology BREAST REDUCTION SURGERY Bilateral 2001 COLONOSCOPY UPPER GASTROINTESTINAL ENDOSCOPY Medical History Medical History Date Comments Arthritis Depression Post-operative nausea and vomiting Bladder infection, chronic Elevated triglycerides with high cholesterol Colon polyp Hypertension associated with type 2 diabetes sunshine litus (HCC) Venous insufficiency of both lower extremities 1 TIA (transient ischemic attack) 06/23/2016 NO DEFICITS Type 2 diabetes mellitus wit h hyperglycemia, without long-term current use of insulin (HCC) 01/21/2023 Hyperlipidemia associated with type 2 diabetes m ellitus (HCC) 01/21/2023 Metabolic dysfunction-associ ated steatotic liver disease (MASLD) 01/21/2023 Gastroesophageal reflux dise ase with esophagitis without hemorrhage 02/28/2024 Diverticulosis 02/28/2024 Congenital spondylolisthesis Tailor's bunion of right foot 04/13/2025 Hammer toe of right foot 04/13/2025 Cystocele with rectocele Family History Medical History Relation Name Comments Heart Disease Father Hypertension Father Diabetes Mother Hypertension Mother Anesth Problems Neg Hx Breast Cancer Neg Hx Relation Name Status Comments Father Mother Social History Tobacco Use Types Packs/Day Years [...] on file Sexual Orientation Not on file Obstetrics History Para Term AB IAB SAB Ectopic Multiple Livin g Live Births 5 4 1 4 4 Date Outcome GA Total Labor Labor/2nd/3rd Weight Sex Type Anes PTL Jolene A1 A5 Name Clin Para Vag-Spo nt Para Vag-Spo nt Para Vag-Spo nt Para Vag-Spo nt AB Last Filed Vital Signs Vital Sign Reading Time Taken Comments Blood Pressure 138/84 05/07/2025 10:21 AM EDT Pulse 82 05/07/2025 10:21 AM EDT Temperature 36.4 C (97.5 F) 04/15/2025 10:32 AM EDT Respiratory Rate 17 10/21/2024 11:40 AM EDT Oxygen Saturation 99% 10/21/2024 11:40 AM EDT Inhaled Oxygen Concentration - - Weight 86.6 kg (191 lb) 05/07/2025 10:53 AM EDT Height 172.7 cm (5' 8 ) 05/07/2025 10:53 AM EDT Body Mass Index 29.04 05/07/2025 10:53 AM EDT Plan of Treatment Upcoming Encounters Date Type Department Care Team (Late st Contact Info) Description 05/13/2025 7:30 AM EST Hospital Encounter [facility] [address] [place] [address] Melvin Mitchell DPM [address] [place] [phone] Preop testing (Primary Dx) 05/13/2025 7:30 AM EST Anesthesia Event [facility] [address] [place] [id number] Cheryl Cerda, TELEVISION DIRECTOR [address] [facility] [place] [address] 05/13/2025 7:30 AM EST - 05/13/2025 10:00 AM EST Surgery [facility] [address] [place] [address] Melvin Mitchell DPM [address] [address] BUNIONECTOMY DAQUAN 05/19/2025 11:00 AM EST Office Visit [facility] [place] [address] [place] [address] Melvin Mitchell, DPTimothy [address] [place], [place] [phone] 06/24/2025 9:20 AM EST [facility] [address] [place] [address] Mechelle Glez, DO [address] [place] [address] 08/25/2025 12:40 PM EST Office Visit [facility] [address] [place] [address] Lucille Basilio DO [address] [place], [place] [phone] Scheduled Procedures Name Priority Associated Diagnoses Date/Ti me BUNIONECTOMY DAQUAN Tailor's bunion of right foot Toe pain, right Hammer toe of right foot Chronic foot pain, right 05/13/2025 7:30 AM EST HAMMER TOE REPAIR Tailor's bunion of right foot Toe pain, right Hammer toe of right foot Chronic foot pain, right 05/13/2025 7:30 AM EST Health Maintenance Due Date Last Done Comments Annual Wellness Exam 10/03/1967 Pneumococcal Vaccine 50+ (1 of 2 - PCV) 10/03/1983 HPV/Pap Cotest 1994 Cologuard 2009 FIT 2009 Sigmoidoscopy 2009 Virtual Colonography 2009 DTaP/TDaP/Td (3 - Td or Tdap) 07/22/2013 07/22/2003, 07/22/2003 RSV or 60+ (1 - Risk 50-74 years 1-dose series) 2014 Zoster (1 of 2) 2014 Cervical Cancer Screening 02/08/2024 Pap Smear 02/08/2024 02/07/2021 COVID-19 Vaccine ( season) 2025 05/02/2021 Influenza Vaccine (#1) 2025 , 05/01/2020, 06/03/2017, Additional history exists Lipids 10/12/2025 10/12/2024, 05/0 02/2024, 01/23/2023, Additional history exists Hemoglobin A1c 11/01/2025 05/03/2025, 04/0 01/2025, 11/13/2023, Additional history exists Kidney Health: eGFR 05/03/2026 05/03/2025, 10/12/2024, 01/01/2024, Additional history exists Kidney Health: uACR 05/03/2026 05/03/2025, 11/13/2023, 01/23/2023 Diabetic Eye Exam 03/18/2027 03/18/2025, 12/18/2023 Breast Cancer Screening 04/07/2027 04/07/20, 05/07/2024, 04/27/2023, Additional history exists Colon Cancer Screening 01/29/2034 Colonoscopy 01/29/2034 01/30/2024 Hepatitis B Vaccine Completed 05/18/2003, 12/07/2002, 11/06/2002 Hepatitis C Screening Completed 06/04/2022, 021 Meningococcal B Vaccine Aged Out No l onger eligible based on patient's age to complete this topic Goals Goal Patient Goal Type Associated Problems Recent Progress Patient-Stated? Author Autogenerat ed Goal Care Plan Autogenerated Problem No Nazanin Cope Procedures Procedure Name Priority Date/Time Associated Diagnosis Comments EK EKG 12 LEAD Routine 05/07/2025 12:05 PM EDT Preop testing ALBUMIN/CREATININE RATIO, RANDOM URINE Routine 05/03/2025 11:51 AM EDT Type 2 diabetes mellitus with hyperglycemia, without long-term current use of insulin (HCC) COMPREHENSIVE METABOLIC PANEL Routine 05/03/2025 11:51 AM EDT Type 2 diabetes mellitus with hyperglycemia, without long-term current use of insulin (HCC) HEMOGLOBIN A1C Routine 05/03/2025 11:51 AM EDT Type 2 diabetes mellitus with hyperglycemia, without long-term current use of insulin (HCC) MRI BRAIN W WO CONTRAST Routine 04/29/2025 3:17 PM EDT Dizziness MM MAMMO DIGITAL TERESITA SCREEN BILAT Routine 04/07/2025 11:10 AM EDT Encounter for screening mammogram for malignant neoplasm of breast HM DIABETES EYE EXAM Routine 03/18/2025 9:[address] TEMPORAL BONES IACS WO CONTRAST Routine 03/14/2025 2:18 PM EDT Mixed conductive and sensorineural hearing loss of right ear with restricted hearing of left ear LIPID PANEL REFLEX Routine 10/12/2024 11 :01 AM EDT Hyperlipidemia associated with type 2 diabetes mellitus (HCC) COLONOSCOPY Routine 01/30/2024 2:35 PM EDT Epigastric abdominal pain Nausea and vomiting, unspecified vomiting type Diarrhea, unspecified type ACUTE HEPATITIS PANEL Routine 06/04/2022 3:43 PM EST Vaginal discharge CERTIFIED TUMOR REGISTRAR CYTOLOGY REQUEST (PAP ONLY) Routine 02/07/2021 11:43 AM EDT Well woman exam with routine gynecological exam from Last 3 Months or Most Recently Relevant to Health Maintenance Results * EK EKG 12 LEAD (05/07/2025 12:05 PM EDT) Anatomical Region Laterality Modality Electrocardiogra phy 05/07/2025 12:0 2 PM EDT Impressions 05/08/2025 1:57 PM EDT [facility]: 2025-[facility]-07 Pat Name: QIANA MORGAN Department: DEPID Room: Gender: Female Director Of Reservations: Lizzie : 1965 Requested By: GIANFRANCO GARCIA Order Number: [id number] Reading MD: Katlin Alexandre Measurements Intervals [place] Rate: 65 P: 23 MO: 152 QRS: 5 QRSD: 85 T: 42 QT: 388 QTc: 405 Interpretive Statements SINUS RHYTHM Electronically Signed On 05-08-2025 13:57:28 EDT by Katlin Alexandre Narrative Procedure Note Katlin Alexandre MD - 05/08/2025 IMPRESSION [facility] Test Date: 2025-05-07 Pat Name: QIANA MORGAN Department: DEPID Room: Gender: Female Director Of Reservations: Lizzie : 1965 Requested By: GIANFRANCO GARCIA Order Number: [id number] Reading MD: Katlin Alexandre Measurements Intervals [place] Rate: 65 P: 23 MO: 152 QRS: 5 QRSD: 85 T: 42 QT: 388 QTc: 405 Interpretive Statements SINUS RHYTHM Electronically Signed On 05-08-2025 13:57:28 EDT by Katlin Alexandre us Gianfranco Starks MD IMG ECG ORDERABLES Final Result * MICROALBUMIN/CREATININE RATIO URINE (05/03/2025 11:51 AM EDT) Urine Albumin <12.0 mg/L 05/03/2025 3:29 PM EDT [facility]REFERRED [facility] [place] Urine Creatinine 91.7 mg/dL 05/03/20 3:29 PM EDT [facility] [place] Albumin/Creat Ratio <13 <31 mg/g 05/03/2025 3:29 PM EDT [facility] [place] Comment: Because the albumin level is below the level of detection in this urine specimen, the laboratory is unable to calculate a reliable albumin/creatinine ratio. Albuminuria is unlikely if the urine albumin concentration is less than 20-30 mg/L. Urine STRUCTURE OF URINARY TRACT PROPER / Unknown 05/03/2025 11:51 AM EDT 05/03/2025 11:51 AM EDT us Nurys Burrows MD URINE ORDERABLES Final Result Performing Organization Address City/State/[facility] Co de Phone Number [facility] , [place] [address] * (ABNORMAL) HEMOGLOBIN A1C (05/03/2025 11:51 AM EDT) [facility] Hgb A1C 5.7(H) 4.2 - 5.6 % 05/03/2025 3:54 PM EDT [facility] [place] Est. Avg Glucose 117 mg/dL 05/03/2025 3:54 PM EDT [facility] [place] Blood VENOUS BLOOD / Unknown Venipuncture / Unknown 05/03/2025 11:51 AM EDT 05/03/2025 11:51 AM EDT Narrative [facility] [place] - 05/03/2025 3:54 PM EDT REFERENCE RANGE: Normal: 4.0-5.6% Pre-diabetes: 5.7-6.4% Provisional diagnosis of diabetes: >6.4% Hgb F>10% and anything which shortens red cell survival, such as hemolytic anemia, or unstable hemoglobin variants such as HbSS, HbSC, or HbCC, will lower the HbA1c value associated with a given level of glycemic control. us Nurys Burrows MD CHEMISTRY ORDERABLES Final Re sult Performing Organization Address [facility] Co de Phone Number [facility] , [place] [address] * COMPREHENSIVE METABOLIC PANEL (05/03/2025 11:51 AM EDT) Pathologist [facility] Sodium 137 136 - 145 mmol/L 05/03/2025 [...] 05/03/2025 5:25 PM EDT [facility] Glucose Lvl 77 70 - 99 mg/dL 05/03/2025 5:25 PM EDT [facility] BUN 8 8 - 23 mg/dL 05/03/2025 5:25 PM EDT [facility] Creatinine 0.87 0.51 - 1.30 mg/dL 05/03/2025 5:25 PM EDT [facility] Albumin 4.3 3.2 - 4.6 gm/dL 05/03/2025 5:25 PM EDT [facility] Total Protein 6.5 6.4 - 8.3 gm/dL 05/03/2025 5:25 PM EDT [facility] Bili Total 0.2 0.2 - 1.3 mg/dL 05/03/2025 5:25 PM EDT [facility] ALT 25 <=41 U/L 05/03/2025 5:25 PM EDT [facility] AST 22 <=40 U/L 05/03/2025 5:25 PM EDT [facility] Alk Phos 67 36 - 123 U/L 05/03/2025 5:25 PM EDT [facility] [facility] eGFR (CKD-EPIcr 2020) 75 >=60 mL/min/1.7 3 m2 05/03/2025 5:25 PM EDT [facility] Comment:Estimated GFR was ca lculated using the CKD-EPIcr (2020) equation refit without race. The equation is recommended by the National [employer] - [place] [employer] Task Force. Blood VENOUS BLOOD / Unknown Venipuncture / Unknown 05/03/2025 11:51 AM EDT 05/03/2025 11:51 AM EDT us Nurys Burrows MD CHEMISTRY ORDERABLES Final Re sult [facility] [address] [facility] , [place] [address] * MRI BRAIN W WO CONTRAST (04/29/2025 [...] Narrative 04/29/2025 4:14 PM EDT CLINICAL HISTORY: B40-Afgjopkks and fjwiachok-AHK-91-CM. COMPARISON: None. TECHNIQUE: MRI BRAIN W WO [...] Neel Sofia MD - 04/29/2025 CLINICAL HISTORY: R90-Omfbjftzd and upwhskxyo-JTM-60-CM. COMPARISON: None. TECHNIQUE: MRI BRAIN W WO [...] please contactthe office of the ordering clinician. Joseph Mccoy MD IMG MRI ORDERABLES Final Res ult * MM MAMMO DIGITAL TERESITA SCREEN BILAT (04/07/2025 11:10 AM EDT) Anatomical Region Laterality Modality Breast Bilateral Mammography 04/07/2025 11:1 0 AM EDT Impressions 04/07/2025 1:33 PM EDT Negative (TFH-Umegpfsi-2) RECOMMENDATION: Routine Screening Mammogram in 1 Year Bilateral . . COMMENTS: DISCLAIMER *The patient was notified by MyChart or mail of the results for this examination. *The patient's information was entered into a reminder system with a target due date for the next breast imaging, in accordance with the [place] [employer] and the Society of [...] for screening mammogram for malignant neoplasm of yooqwn-OBY-04-CM COMPARISON STUDIES: Compared with prior studies the most recent being 05/07/2024 MM MAMMO DIGITAL TERESITA SCREEN BILAT at [facility] 04/27/2023 MM MAMMO DIGITAL TERESITA SCREEN BILAT at [facility] 04/25/2022 MM MAMMO DIGITAL TERESITA SCREEN BILAT at [facility] TISSUE DENSITY: The breasts are almost entirely fatty. FINDINGS: No mammographic evidence of malignancy. Procedure Note Leonel Macdonald MD - 04/07/2025 EXAM: MM MAMMO DIGITAL TERESITA SCREEN BILAT EXAM DATE: 04/07/2025 11:10 AM INDICATION: Z12.31-Encounter for screening mammogram for malignantneoplasm of xaccyb-OQV-90-CM COMPARISON STUDIES: Compared with prior studies the most recent being 05/07/2024 MM MAMMO DIGITAL TERESITA SCREEN BILAT at [facility] 04/27/2023 MM MAMMO DIGITAL TERESITA SCREEN BILAT at [facility] 04/25/2022 MM MAMMO DIGITAL TERESITA SCREEN BILAT at [facility] TISSUE DENSITY: The breasts are almost entirely fatty. FINDINGS: No mammographic evidence of malignancy. IMPRESSION: Negative (MUK-Nxhfdfef-3) RECOMMENDATION: Routine Screening Mammogram in 1 Year Bilateral . . COMMENTS: DISCLAIMER *The patient was notified by MyChart or mail of the results for this examination. *The patient's information was entered into a reminder system with atarget due date for the next breast imaging, in accordance with the [place] [employer] and the Society of Breast Imaging recommendations. *Breast Imaging has a false negative rate of 15%. *Any patient with a palpable abnormality, unexplained by breast imaging,should be managed on a clinical basis by the attending physician. Tony Roberts MD IMG MAMMOGRAPHY ORDERABLES Final Result * HM DIABETES EYE EXAM (03/18/2025 9:40 AM EDT) Left Diabetic Retinopathy Not Present Not Present Present/Not Present SEP OFFICE Right Diabetic Retinopathy Not Present Not Present Present/Not Present SEP OFFICE Impressions SEP OFFICE - 03/18/2025 9:40 AM EDT Last Dawkins OD [facility] Provider HEALTH MAINTENANCE Edited Re sult - Final SEP OFFICE * CT TEMPORAL BONES IACS WO CONTRAST [...] WO CONTRAST 03/14/2025 2:18 PM CLINICAL HISTORY: H90.P35-Pcowi conductive and sensorineural hearing loss, unilateral, right ear with restricted hearing on the contralateral xfoe-QFD-14-CM. COMPARISON: None. PROCEDURE COMMENTS: Multidetector CT scanning [...] WO CONTRAST 03/14/2025 2:18 PM CLINICAL HISTORY: H90.I02-Kubbp conductive and sensorineural hearingloss, unilateral, right ear with restricted hearing on the contralateral gcpf-KUR-91-CM. COMPARISON: None. PROCEDURE COMMENTS: Multidetector CT scanning [...] MD IMG CT ORDERABLES Final Resu lt * LIPID PANEL REFLEX (10/12/2024 11:01 AM EDT) Cholesterol 154 <200 mg/dL 10/14/2024 1:51 PM EDT [facility] Comment: < 200 Desirable 200 - 239 Borderline High >= 240 High Triglyceride 114 <150 mg/dL 10/14/2024 1:51 PM EDT [facility] Comment: < 150 Normal 150 - 199 Borderline High 200 - 499 High >= 500 Very High HDL 53 >=40 mg/dL 10/14/2024 1:51 PM EDT [facility] Comment: > 60 Optimal 40 - 60 Acceptable < 40 Low LDL Calculated 81 <100 mg/dL 10/14/2024 1:51 PM EDT [employer] Comment: < 100 Optimal 100 - 129 Near or above optimal 130 - 159 Borderline High 160 - 189 High >= 190 Very High The National Institutes of Health (NIH) equation is used for all lipid panels that report calculated LDL (LDL-C). Non-HDL-C Calculated 101 <=129 mg/dL 10/14/2024 1:51 PM EDT [facility] Comment: <130 Desirable 130-159 Above Desirable 160-189 Borderline High 190-219 High >= 220 Very High Fasting Specimen? 025 1:51 PM EDT [facility] Blood VENOUS BLOOD / Unknown Venipuncture / Unknown 10/12/2024 11:01 AM EDT 10/12/2024 11:01 AM EDT us Nurys Burrows MD CHEMISTRY ORDERABLES Final Re sult [facility] [address] [facility] , [address] [address] * COLONOSCOPY (01/30/2024 2:35 PM EDT) Anatomical Region Laterality Modality Endoscopy Narrative 01/30/2024 2:45 PM EDT Table formatting from the original result was not included. Findings External and internal medium hemorrhoids; no bleeding was identified Multiple medium, extensive diverticula of moderate severity with no inflammation causing mild luminal narrowing (traversable) in the ascending colon, hepatic flexure, transverse colon, proximal descending colon, mid descending colon, distal descending colon and proximal sigmoid colon; no bleeding was identified Performed random biopsy using biopsy forceps. Normal colon mucosa All observed locations appeared normal, including the terminal ileum. Normal Terminal ileum Recommendation There is no recommended follow-up for this procedure. Diverticulosis education Follow up with me or KAREN in office in 3 months. High fiber diet education Okay to resume all home medications. I will send you a letter with your pathology results. If no results in 4 weeks, please call the office at [phone]. Pre-Procedure Diagnosis / Indication Epigastric abdominal pain, Diarrhea, unspecified type, Nausea and vomiting, unspecified vomiting type Post-Procedure Diagnosis Epigastric abdominal pain, Diarrhea, unspecified type, Nausea and vomiting, unspecified vomiting type Staff Staff Role No Staff Documented Medications See Anesthesia Record. Preprocedure A history and physical has been performed, and patient medication allergies have been reviewed. The patient's tolerance of previous anesthesia has been reviewed. The risks and benefits of the procedure and the sedation options and risks were discussed with the patient. All questions were answered and informed consent obtained. ASA 3 - Patient with severe systemic disease Details of the Procedure The patient underwent monitored anesthesia care, which was administered by an anesthesia professional. The patient's blood pressure, heart rate, level of consciousness, oxygen, respirations, ECG and ETCO2 were monitored throughout the procedure. A digital rectal exam was performed. The scope was introduced through the anus and advanced to the cecum. Retroflexion was performed in the rectum. Bowel prep was adequate. The patient experienced no blood loss. The procedure was not difficult. The patient tolerated the procedure well. There were no apparent adverse events. Patient provided education and educated on specific discharge instructions. Patient educated on medications given during the procedure and new medications for discharge. Patient verbalizes understanding of discharge education. Patient stable and awaiting transport for discharge. Events Procedure Events Event Event Time ENDO SCOPE IN TIME 01/30/2024 2:02 PM ENDO SCOPE OUT TIME 01/30/2024 2:07 PM ENDO SCOPE IN TIME 01/30/2024 2:17 PM ENDO CECUM REACHED 01/30/2024 2:26 PM ENDO SCOPE WITHDRAW BEGIN 01/30/2024 2:26 PM TSG LUME TI REACHED 01/30/2024 2:27 PM ENDO SCOPE OUT TIME 01/30/2024 2:35 PM Specimens ID Type Source Tests Collected by Time 1 : esophagitis Tissue Esophagus [facility] PATHOLOGY ORDER Asher Peterson MD 01/30/2024 1410 2 : gastritis Tissue Gastric [facility]G PATHOLOGY ORDER Asher Peterson MD 01/30/2024 1410 3 : duodenum Tissue Small Intestine, Duodenum TSG PATHOLOGY ORDER Asher Peterson MD 01/30/2024 1411 4 : random Tissue Colon TSG PATHOLOGY ORDER Asher Peterson MD 01/30/2024 1438 5 : ileum Tissue Small Intestine, Ileum TSG PATHOLOGY ORDER Asher Peterson MD 01/30/2024 1438 Asher Peterosn MD ENDOSCOPY PROCEDURE ORDERABLE S Final Result * ACUTE HEPATITIS PANEL (06/04/2022 3:43 PM EST) Pathologist [facility] Hep Bs Ag Non-Reacti ve Non-Reacti ve 06/04/2022 10:40 PM EST [facility] Hep B Core IgM Non-Reacti ve Non-Reacti ve 06/04/2022 10:40 PM EST [facility] Hep A IgM Non-Reacti ve Non-Reacti ve 06/04/2022 10:40 PM EST [facility] Hep C Ab Non-Reacti ve Non-Reacti ve 06/04/2022 10:40 PM EST [facility] Blood VENOUS BLOOD / Unknown Venipuncture / Unknown 06/04/2022 3:43 PM EST 06/04/2022 3:43 PM EST Asher Singleton DO CHEMISTRY ORDERABLES Final Result [facility] [address] [facility] , [address] [address] * (ABNORMAL) CERTIFIED TUMOR REGISTRAR CYTOLOGY REQUEST (PAP ONLY) (02/07/2021 11:43 AM EDT) CASE REPORT Gynecologic Cytology Report Case: [id number] Authorizing Provider: Tony Hansen MD Collected: 02/07/2021 1143 Ordering Location: [facility] Received: 02/07/2021 1143 First Screen: Sherry Villanueva, ERROL Pathologist: Vaughn Beltran MD Specimen: LIQUID-BASED PAP - VAGINAL CUFF, Vaginal Cuff 02/13/2021 10:50 AM EDT [facility] PAP FINAL DIAGNOSIS Low grade vaginal intraepithelial neoplasia (VAIN1)(A) 02/13/2021 10:50 AM EDT [facility] at 1050 EDT MICROSCOPIC DESCRIPTION Microscopic examination is performed and the findings corroborate the diagnosis This case has been reviewed by additional departmental pathologist(s) with diagnostic agreement./MY 02/13/2021 10:50 AM EDT [facility] PAP SMEAR ADEQUACY Satisfactory for evaluation 02/13/2021 10:50 AM EDT [facility] ENDOCERVICAL T-ZONE Transformation Zone Absent. This is not unusual for a post-hysterectomy woman. 02/13/2021 10:50 AM EDT [facility] EMBEDDED IMAGES 10:50 AM EDT [facility] PAP DISCLAIMER The Pap Smear is a screening test that aids in the detection of cervical cancer and cancer precursors. Both false positive and false negative results can occur. The test should be used at regular intervals, and positive results should be confirmed before definitive therapy. Processed using the ThinPrep Devil Tender Automated cytology screening device (YouView). 02/13/2021 10:50 AM EDT [facility] Thin Prep VAGINAL CUFF / Unknown 02/07/2021 11:43 AM EDT 02/07/2021 11:43 AM EDT us Tony Hansen MD CYTOLOGY ORDERABLES Final Re sult [facility] [address] [place] [address] from Last 3 Months or Most Recently Relevant to Health Maintenance Additional Health Concerns Active Problems Noted Date Diagnosed Date Autogenerated Problem 04/14/2025 Insurance ANTHEM PPO ANTHEM PPO ANTHEM PPO SYD PPO Care Teams Cable Splicing Technician Relationship Specialty Start Date End Date Tony Roberts MD PCP - General Family Medicine 04/04/21
[2025-05-09] MEDS: ACETAMINOPHEN 1,000MG/100ML VIAL 1000 MG IV (19:43)
[2025-05-09] MEDS: 0.9 % SODIUM CHLORIDE 1000ML 1,000 ML 999 ML IV (19:43)
[2025-05-09] MEDS: KETOROLAC 30MG/ML VIAL 30 MG IV (19:43)
[2025-05-09] MEDS: METOCLOPRAMIDE HCL 10MG/2ML VIAL 10 MG IVP (19:44)
--- NOTE | 2025-05-09 20:48 | [facility].EDGENADL ---
Discharge Plan Disposition Patient Disposition: Home, Self-Care Condition: Good Prescriptions Prescriptions: New metoclopramide HCl 10 mg tablet 10 mg PO Q8H PRN (Reason: nausea and vomiting) Qty: 10 0RF promethazine 12.5 mg suppository 12.5 mg LA Q6H PRN (Reason: nausea and vomiting) Qty: 12 0RF No Action (DME) lancets [OneTouch Delica Plus Lancet] 33 gauge misc See Rx Instructions .ROUTE .MEDSUPPLY Qty: 100 Rx Instructions: As directed (DME) OneTouch Verio test strips Strip See Rx Instructions .ROUTE .MEDSUPPLY Qty: 10 Rx Instructions: As directed Ozempic 2 mg/dose (8 mg/3 mL) pen injector 1 mg SQ WEEKLY Patient Comments: Inject 2 mg under the skin once a week. duloxetine [Cymbalta] 60 mg capsule,delayed release(DR/EC) 60 mg PO DAILY Qty: 90 4RF atorvastatin [Lipitor] 20 mg tablet 20 mg PO DAILY Qty: 90 4RF pantoprazole [Protonix] 40 mg tablet,delayed release (DR/EC) 40 mg PO BID Qty: 180 4RF valacyclovir [Valtrex] 1 gram tablet 1,000 mg PO BID Qty: 60 2RF zolpidem [Ambien] 10 mg tablet 10 mg PO HS PRN (Reason: insomnia) Qty: 30 3RF ondansetron HCl 4 mg tablet 4 mg PO TID PRN (Reason: nausea and vomiting) Qty: 90 3RF amlodipine 10 mg tablet See Rx Instructions .ROUTE .COMPLEX Qty: 90 3RF Dose Instruction: TAKE 1 TABLET DAILY Rx Instructions: TAKE 1 TABLET DAILY losartan 100 mg tablet See Rx Instructions .ROUTE .COMPLEX Qty: 90 3RF Dose Instruction: TAKE 1 TABLET DAILY Rx Instructions: TAKE 1 TABLET DAILY prochlorperazine maleate [Compazine] 10 mg tablet 10 mg PO Q6H PRN (Reason: nausea and vomiting) Qty: 90 3RF [id number] [Fioricet] 50-300-40 mg capsule 1 cap PO Q4-6H PRN (Reason: pain) Qty: 60 2RF Referrals Follow up/Referrals: Brent Alejandro II, MD [Staff Physician, Gastroenterology] - See instructions Referral Note: nausea, vomiting, abd pain with reassuring ER workup Tony Roberts MD [Primary Care Provider, Family Practice] - See instructions Activity Restrictions/Add. Instructions Additional Instructions/Restrictions: You were evaluated in the ER and are believed to be appropriate for discharge at this time. Continue home medications as previously prescribed. I did send a prescription of metoclopramide (Reglan) which may help with nausea and vomiting. Take as directed. I have also sent in promethazine (Phenergan). You should not take promethazine, metoclopramide, and prochlorperazine (Compazine) together. You should pick 1 of these medications to use at a time to avoid potentially dangerous side effects. You have a vaginal cuff cystic structure that was seen on CT. Please follow-up with [facility] for reevaluation of this. Follow-up with neurology as scheduled. Please call Dr. Alejandro office and schedule an appointment for follow-up with GI as well. Return to the ER with any new, worsening, or otherwise concerning symptoms Clinical Impressions Clinical Impression: Headache, Nausea & vomiting Abdominal pain Qualifiers: Abdominal location: generalized Qualified Code(s): R10.84 - Generalized abdominal pain Print Language Print Language: Burkinan Discharge ED Provider: Luis Felipe Patino General Adult HPI <JANELL Love - Last Filed: 05/09/25 22:22> General Chief complaint: Headache Stated complaint: headache x2,nausea,vomiting Time Seen by Provider: 05/09/25 19:20 Mode of Arrival: Ambulatory Source of Information: Patient and Spouse Description of Symptoms (Recalled from ER Triage Doc. by RN): N/V since saturday as well as a migraine since. Progressively gotten worse since then. Unable to keep any food or fluids down. History of Present Illness HPI narrative: Patient presents complaining of right sided migraine. She reports a history of migraines. She did have an MRI earlier this week which she reports was normal. She has a follow-up appointment with neurology scheduled in August. She has a prescription for Compazine, Zofran, Fioricet, however has been unable to hold anything down. She has had nausea and vomiting. Patient has had chronic right sided tinnitus, evaluated by ENT. She describes throbbing and pressure. Denies the worst headache of her life or thunderclap onset. complaint: migraine Onset (ago): day(s) (2) Location: head Radiation: non-radiation Severity: moderate Quality: other (throbbing, pressure) Consistency: constant Relieving factors: none Exacerbating factors: none Associated symptoms: nausea/vomiting; negative fever/chills Treatments prior to arrival: none Related Data Home Medications ?Medication ?Instructions ?Recorded ?Confirmed blood sugar diagnostic (OneTouch #10 ea 04/29/23 04/28/25 Verio test strips) lancets 33 gauge (OneTouch Delica #100 ea 04/29/23 04/28/25 Plus Lancet) semaglutide 2 mg/dose (8 mg/3 mL) 1 mg SQ WEEKLY Diabetes 01/08/24 04/28/25 subcutaneous pen injector (Ozempic) Previous Rx's ?Medication ?Instructions ?Recorded ondansetron HCl 4 mg tablet 4 mg PO TID PRN nausea and 07/21/24 vomiting #90 tabs amlodipine 10 mg tablet See Rx Instructions .Route 08/03/24 .COMPLEX #90 tabs losartan 100 mg tablet See Rx Instructions .Route 08/03/24 .COMPLEX #90 tabs atorvastatin 20 mg tablet (Lipitor) 20 mg PO DAILY hld #90 tabs 10/19/24 duloxetine 60 mg capsule,delayed 60 mg PO DAILY mood #90 caps 10/19/24 release (Cymbalta) pantoprazole 40 mg tablet,delayed 40 mg PO BID #180 tabs 10/19/24 release (Protonix) qagpvgwjza-juxfpmwpfjyjm-wnqgspyf 1 cap PO Q4-6H PRN pain #60 caps 04/27/25 50 mg-300 mg-40 mg capsule (Fioricet) prochlorperazine maleate 10 mg 10 mg PO Q6H PRN nausea and 04/27/25 tablet (Compazine) vomiting #90 tabs valacyclovir 1 gram tablet 1,000 mg PO BID #60 tabs 04/28/25 (Valtrex) zolpidem 10 mg tablet (Ambien) 10 mg PO HS PRN insomnia #30 tabs 04/28/25 metoclopramide HCl 10 mg tablet 10 mg PO Q8H PRN nausea and 05/09/25 vomiting #10 tabs promethazine 12.5 mg rectal 12.5 mg LA Q6H PRN nausea and 05/09/25 suppository vomiting #12 ea Allergies Allergy/AdvReac Type Severity Reaction Status Date / Time No Known Allergies Allergy Verified 04/28/25 11:40 PFS <JANELL Love - Last Filed: 05/09/25 22:22> [facility] Disclaimer: The information contained in this section may have been updated after the patient was seen, as this information can be updated by other users. Medical History Diarrhea Elevated LFTs Nausea and vomiting Epigastric pain Diabetes mellitus Periscapular pain Hyperlipidemia Hypertension GERD (gastroesophageal reflux disease) Family history of diabetes mellitus Depression Hyperlipidemia Essential hypertension Surgical History History of colonoscopy History of bilateral breast reduction surgery History of cholecystectomy History of hysterectomy History of lumbar fusion Family History Father Family history of myocardial infarction Social History Smoking Status: Never smoker alcohol intake: former substance use type: denies use current occupational status: employed Travel in the last 8 weeks?: Inside the [place] Have you lived/traveled outside US in past 30 days?: No Contact w/someone who lives/traveled outside US past 30 days?: No Exposure to someone with infectious disease in past 14 days?: No Do you have a fever (greater than 100.4 F or 38 C)?: No Have you tested positive for COVID-19?: No Exposed to someone with COVID-19 in past 14 days?: No Do you have a sore throat?: No Do you have a cough?: No Do you have any weakness?: No Do you have any diarrhea?: No Are you experiencing any unusual bleeding?: No Do you have any muscle aches/pain?: No Do you have any abdominal pain?: No Are you experiencing loss of taste or smell?: No Other Medical History Have you received the Pneumonia Vaccine: No <JANELL Love - Last Filed: 05/09/25 22:22> ROS Obtained: Yes Systems reviewed as appropriate & no additional complaints except as documented Physical Exam <JANELL Love - Last Filed: 05/09/25 22:22> General General appearance: alert and in no apparent distress Head Head exam: atraumatic and normocephalic Eye Eye exam: Present normal appearance and EOMI Neck Neck exam: Present full ROM Chest Chest inspection: Present symmetric chest wall rise Respiratory Respiratory exam: Present normal lung sounds bilaterally; Absent wheezes or stridor Cardiovascular Cardiovascular exam: Present regular rate and normal rhythm; Absent systolic murmur Abdominal Exam Abdominal exam: Present soft and tenderness (RLQ ); Absent distention or guarding Extremities Exam Extremities exam: Present full ROM Neurological Exam Neurological exam: Present alert, oriented X3, CN II-XII intact and reflexes normal; Absent motor sensory deficit Psychiatric Psychiatric exam: Present normal affect and normal mood Skin Skin exam: Present warm, dry and intact Medical Decision Making <JANELL Love - Last Filed: 05/09/25 22:22> Medical Records Screening: Per USPSTF and CDC recommendations, given the prevalence of disease in our region, it is our hospital?s policy to screen for HIV and viral Hepatitis for all patients aged 18 and over and those with ongoing risk factors. Joseph Inquiry Pt receiving controlled substance: No Vital Signs: 05/09/25 19:06 05/09/25 23:13 Temperature 98.0 F 98.0 F Temperature Source Oral Temporal Artery Scan Pulse Rate 70 Pulse Rate [Right] 81 Respiratory Rate 18 15 Blood Pressure 153/70 H Blood Pressure [Right Arm] 161/82 H Blood Pressure Mean [Right Arm] 108 Blood Pressure Source Automatic Cuff Blood Pressure Source [Right Arm] Automatic Cuff Blood Pressure Position Sitting Blood Pressure Position [Right Arm] Sitting 02 Sat by Pulse Oximetry 100 100 Oxygen Delivery Method Room Air Room Air Lab Data Lab Results 05/09/25 21:50: WBC 7.1, RBC 5.10, Hgb 13.1, Hct 40.7, MCV 79.8 L, MCH 25.7 L, MCHC 32.2, RDW 13.4, Plt Count 290, MPV 10.2, Neut % (Auto) 65.4, Lymph % (Auto) 26.6, Lamb % (Auto) 6.4, Eos % (Auto) 1.1, Baso % (Auto) 0.4, Neut # (Auto) 4.7, Lymph # (Auto) 1.9, Lamb # (Auto) 0.5, Eos # (Auto) 0.1, Baso # (Auto) 0.0, Sodium 138, Potassium 3.8, Chloride 100, Carbon Dioxide 28, Anion Gap 13.8, BUN 17, Creatinine 0.90, Estimated Creat Clear 90, Estimated GFR 64, Est GFR ( Amer) 77, Glucose 101 H, Calcium 9.2, Total Bilirubin 0.8, AST 57 H, ALT 151 H, Alkaline Phosphatase 94, Total Protein 7.8, Albumin 4.2, Globulin 3.6 H, Albumin/Globulin Ratio 1.2, Lipase 175 05/09/25 22:30: Urine Color Yellow, Urine Appearance Clear, Urine pH 5.5, Ur Specific [place] >= 1.030, Urine Protein Negative, Urine Glucose (UA) Negative, Urine Ketones 2+, Urine Blood Negative, Urine Nitrate Negative, Urine Bilirubin 1+ A, Urine Urobilinogen 0.2, Ur Leukocyte Esterase Negative, Urine RBC None, Urine WBC None, Ur Squamous Epith Cells 3-5, Urine Bacteria Trace 05/09/25 21:50 05/09/25 21:50 Orders (Tests/Meds): ED MEDICATIONS Generic Name Dose Route Start Last Admin Trade Name Isabel PRN Reason Stop Dose Admin Sodium Chloride 10 ml 05/09/25 23:06 05/09/25 23:13 Sodium Chloride 0.9% 10ml Syr (Rad Only) IV 06/08/25 23:05 10 ml NEEDED PRN Administration Maintain IV Site Discontinued Medications Generic Name Dose Route Start Last Admin Trade Name Freq PRN Reason Stop Dose Admin Acetaminophen 1,000 mg 05/09/25 19:30 05/09/25 19:43 Acetaminophen 1,000mg/100ml Vial IV 05/09/25 19:31 1,000 mg ONCE ONE Administration Dexamethasone Sodium Phosphate 10 mg 05/09/25 22:20 05/09/25 22:39 Dexamethasone 4mg/Ml 5ml Mdv IV 05/09/25 22:21 10 mg ONCE ONE Administration Diphenhydramine HCl 25 mg 05/09/25 19:30 05/09/25 19:43 Diphenhydramine 50mg/Ml Vial IV 05/09/25 19:31 25 mg ONCE ONE Administration Sodium Chloride 1,000 mls @ 999 mls/hr 05/09/25 19:30 05/09/25 21:15 Sod Chlor 0.9% 1000ml Bag IV 05/09/25 20:30 Infused .Q1H1M ONE Infusion Magnesium Sulfate 2 gm in 50 mls @ 50 mls/hr 05/09/25 22:20 05/09/25 23:39 Magnesium Sulfate 2gm/50ml Premix IV 05/09/25 23:19 Infused ONCE ONE Infusion Iopamidol 75 ml 05/09/25 23:06 05/09/25 23:13 Iopamidol-370 (76%);100ml Bottle IV 05/09/25 23:07 75 ml ONCE ONE Administration Ketorolac Tromethamine 30 mg 05/09/25 19:30 05/09/25 19:43 Ketorolac 30mg/Ml Vial IV 05/09/25 19:31 30 mg ONCE ONE Administration Metoclopramide HCl 10 mg 05/09/25 19:30 05/09/25 19:44 Metoclopramide Hcl 10mg/2ml Vial IVP 05/09/25 19:31 10 mg ONCE ONE Administration Ondansetron HCl 4 mg 05/09/25 20:53 05/09/25 21:02 Ondansetron 4mg/2ml Vial IV 05/09/25 20:54 4 mg ONCE ONE Administration ORDERS Category Date Time Status CT abdomen pelvis w con Stat Cat Scan 05/09/25 21:44 Completed CBC w/Auto Diff [Complete Blood Count Auto Diff] Stat Lab 05/09/25 21:50 Completed CMP [Comprehensive Metabolic Panel] Stat Lab 05/09/25 21:50 Completed Lipase Stat Lab 05/09/25 21:50 Completed Urinalysis and Microscopic Stat Lab 05/09/25 22:30 Completed Medical Decision Narrative: In summary patient is a 59-year-old Fe who presents the emergency department for evaluation of migraine. Patient is hemodynamically stable upon arrival, afebrile. Unremarkable physical exam. Differential diagnosis includes migraine, mass, intracranial hemorrhage. Given long history of migraines as well as recent MRI we will start with migraine cocktail. initial inventions include Toradol, IV fluids, Reglan, Benadryl, Tylenol. Upon repeat evaluation patient does have acceptable resolution of pain. She does however express concern over not being able to tolerate p.o. for 3 days. Upon abdominal exam she does have some right lower quadrant abdominal tenderness. Will obtain labs and CT abdomen and pelvis. Signed out to Dr. Patino pending CT results. She does report headache has returned pending CT, will add decadron and magnesium. <Luis Felipe Patino MD - Last Filed: 05/09/25 23:00> Vital Signs: 05/09/25 19:06 05/09/25 23:13 Temperature 98.0 F 98.0 F Temperature Source Oral Temporal Artery Scan Pulse Rate 70 Pulse Rate [Right] 81 Respiratory Rate 18 15 Blood Pressure 153/70 H Blood Pressure [Right Arm] 161/82 H Blood Pressure Mean [Right Arm] 108 Blood Pressure Source Automatic Cuff Blood Pressure Source [Right Arm] Automatic Cuff Blood Pressure Position Sitting Blood Pressure Position [Right Arm] Sitting 02 Sat by Pulse Oximetry 100 100 Oxygen Delivery Method Room Air Room Air Lab Data Lab Results 05/09/25 21:50: WBC 7.1, RBC 5.10, Hgb 13.1, Hct 40.7, MCV 79.8 L, MCH 25.7 L, MCHC 32.2, RDW 13.4, Plt Count 290, MPV 10.2, Neut % (Auto) 65.4, Lymph % (Auto) 26.6, Lamb % (Auto) 6.4, Eos % (Auto) 1.1, Baso % (Auto) 0.4, Neut # (Auto) 4.7, Lymph # (Auto) 1.9, Lamb # (Auto) 0.5, Eos # (Auto) 0.1, Baso # (Auto) 0.0, Sodium 138, Potassium 3.8, Chloride 100, Carbon Dioxide 28, Anion Gap 13.8, BUN 17, Creatinine 0.90, Estimated Creat Clear 90, Estimated GFR 64, Est GFR ( Amer) 77, Glucose 101 H, Calcium 9.2, Total Bilirubin 0.8, AST 57 H, ALT 151 H, Alkaline Phosphatase 94, Total Protein 7.8, Albumin 4.2, Globulin 3.6 H, Albumin/Globulin Ratio 1.2, Lipase 175 05/09/25 22:30: Urine Color Yellow, Urine Appearance Clear, Urine pH 5.5, Ur Specific [place] >= 1.030, Urine Protein Negative, Urine Glucose (UA) Negative, Urine Ketones 2+, Urine Blood Negative, Urine Nitrate Negative, Urine Bilirubin 1+ A, Urine Urobilinogen 0.2, Ur Leukocyte Esterase Negative, Urine RBC None, Urine WBC None, Ur Squamous Epith Cells 3-5, Urine Bacteria Trace Orders (Tests/Meds): ED MEDICATIONS Generic Name Dose Route Start Last Admin Trade Name Isabel PRN Reason Stop Dose Admin Sodium Chloride 10 ml 05/09/25 23:06 05/09/25 23:13 Sodium Chloride 0.9% 10ml Syr (Rad Only) IV 06/08/25 23:05 10 ml NEEDED PRN Administration Maintain IV Site Discontinued Medications Generic Name Dose Route Start Last Admin Trade Name Isabel PRN Reason Stop Dose Admin Acetaminophen 1,000 mg 05/09/25 19:30 05/09/25 19:43 Acetaminophen 1,000mg/100ml Vial IV 05/09/25 19:31 1,000 mg ONCE ONE Administration Dexamethasone Sodium Phosphate 10 mg 05/09/25 22:20 05/09/25 22:39 Dexamethasone 4mg/Ml 5ml Mdv IV 05/09/25 22:21 10 mg ONCE ONE Administration Diphenhydramine HCl 25 mg 05/09/25 19:30 05/09/25 19:43 Diphenhydramine 50mg/Ml Vial IV 05/09/25 19:31 25 mg ONCE ONE Administration Sodium Chloride 1,000 mls @ 999 mls/hr 05/09/25 19:30 05/09/25 21:15 Sod Chlor 0.9% 1000ml Bag IV 05/09/25 20:30 Infused .Q1H1M ONE Infusion Magnesium Sulfate 2 gm in 50 mls @ 50 mls/hr 05/09/25 22:20 05/09/25 23:39 Magnesium Sulfate 2gm/50ml Premix IV 05/09/25 23:19 Infused ONCE ONE Infusion Iopamidol 75 ml 05/09/25 23:06 05/09/25 23:13 Iopamidol-370 (76%);100ml Bottle IV 05/09/25 23:07 75 ml ONCE ONE Administration Ketorolac Tromethamine 30 mg 05/09/25 19:30 05/09/25 19:43 Ketorolac 30mg/Ml Vial IV 05/09/25 19:31 30 mg ONCE ONE Administration Metoclopramide HCl 10 mg 05/09/25 19:30 05/09/25 19:44 Metoclopramide Hcl 10mg/2ml Vial IVP 05/09/25 19:31 10 mg ONCE ONE Administration Ondansetron HCl 4 mg 05/09/25 20:53 05/09/25 21:02 Ondansetron 4mg/2ml Vial IV 05/09/25 20:54 4 mg ONCE ONE Administration ORDERS Category Date Time Status CT abdomen pelvis w con Stat Cat Scan 05/09/25 21:44 Completed CBC w/Auto Diff [Complete Blood Count Auto Diff] Stat Lab 05/09/25 21:50 Completed CMP [Comprehensive Metabolic Panel] Stat Lab 05/09/25 21:50 Completed Lipase Stat Lab 05/09/25 21:50 Completed Urinalysis and Microscopic Stat Lab 05/09/25 22:30 Completed Medical Decision Narrative: In summary patient is a 59-year-old Fe who presents the emergency department for evaluation of migraine. Patient is hemodynamically stable upon arrival, afebrile. Unremarkable physical exam. Differential diagnosis includes migraine, mass, intracranial hemorrhage. Given long history of migraines as well as recent MRI we will start with migraine cocktail. initial inventions include Toradol, IV fluids, Reglan, Benadryl, Tylenol. Upon repeat evaluation patient does have acceptable resolution of pain. She does however express concern over not being able to tolerate p.o. for 3 days. Upon abdominal exam she does have some right lower quadrant abdominal tenderness. Will obtain labs and CT abdomen and pelvis. Signed out to Dr. Patino pending CT results. She does report headache has returned pending CT, will add decadron and magnesium. Luis Felipe Patino MD: I was consulted by the KAREN, and we discussed the complexity of the problems being addressed. I approve the treatment and management plan for this patient's care in the emergency department, thus performing a substantive portion of the medical decision making. At the time of handoff, patient's headache had improved some but worsened slightly. Decadron and magnesium were added. Patient was complaining of abdominal pain now in the right lower quadrant. CT abdomen pelvis and laboratory studies were ordered. Labs were studies are grossly unremarkable with white blood cell count normal at 7.1, hemoglobin normal, platelets normal. Electrolytes and kidney function within normal limits. Liver enzymes chronically mildly elevated with ALT of 151, AST of 57 but bilirubin normal at 0.8. Lipase normal at 175. At this time, patient's care was handed off to the oncoming physician, Dr. Ann, pending completion of her imaging <Miguel Ann MD - Last Filed: 05/09/25 23:59> Vital Signs: 05/09/25 19:06 05/09/25 23:13 Temperature 98.0 F 98.0 F Temperature Source Oral Temporal Artery Scan Pulse Rate 70 Pulse Rate [Right] 81 Respiratory Rate 18 15 Blood Pressure 153/70 H Blood Pressure [Right Arm] 161/82 H Blood Pressure Mean [Right Arm] 108 Blood Pressure Source Automatic Cuff Blood Pressure Source [Right Arm] Automatic Cuff Blood Pressure Position Sitting Blood Pressure Position [Right Arm] Sitting 02 Sat by Pulse Oximetry 100 100 Oxygen Delivery Method Room Air Room Air Lab Data Lab Results 05/09/25 21:50: WBC 7.1, RBC 5.10, Hgb 13.1, Hct 40.7, MCV 79.8 L, MCH 25.7 L, MCHC 32.2, RDW 13.4, Plt Count 290, MPV 10.2, Neut % (Auto) 65.4, Lymph % (Auto) 26.6, Lamb % (Auto) 6.4, Eos % (Auto) 1.1, Baso % (Auto) 0.4, Neut # (Auto) 4.7, Lymph # (Auto) 1.9, Lamb # (Auto) 0.5, Eos # (Auto) 0.1, Baso # (Auto) 0.0, Sodium 138, Potassium 3.8, Chloride 100, Carbon Dioxide 28, Anion Gap 13.8, BUN 17, Creatinine 0.90, Estimated Creat Clear 90, Estimated GFR 64, Est GFR ( Amer) 77, Glucose 101 H, Calcium 9.2, Total Bilirubin 0.8, AST 57 H, ALT 151 H, Alkaline Phosphatase 94, Total Protein 7.8, Albumin 4.2, Globulin 3.6 H, Albumin/Globulin Ratio 1.2, Lipase 175 05/09/25 22:30: Urine Color Yellow, Urine Appearance Clear, Urine pH 5.5, Ur Specific [place] >= 1.030, Urine Protein Negative, Urine Glucose (UA) Negative, Urine Ketones 2+, Urine Blood Negative, Urine Nitrate Negative, Urine Bilirubin 1+ A, Urine Urobilinogen 0.2, Ur Leukocyte Esterase Negative, Urine RBC None, Urine WBC None, Ur Squamous Epith Cells 3-5, Urine Bacteria Trace Orders (Tests/Meds): ED MEDICATIONS Generic Name Dose Route Start Last Admin Trade Name Freq PRN Reason Stop Dose Admin Sodium Chloride 10 ml 05/09/25 23:06 05/09/25 23:13 Sodium Chloride 0.9% 10ml Syr (Rad Only) IV 06/08/25 23:05 10 ml NEEDED PRN Administration Maintain IV Site Discontinued Medications Generic Name Dose Route Start Last Admin Trade Name Isabel PRN Reason Stop Dose Admin Acetaminophen 1,000 mg 05/09/25 19:30 05/09/25 19:43 Acetaminophen 1,000mg/100ml Vial IV 05/09/25 19:31 1,000 mg ONCE ONE Administration Dexamethasone Sodium Phosphate 10 mg 05/09/25 22:20 05/09/25 22:39 Dexamethasone 4mg/Ml 5ml Mdv IV 05/09/25 22:21 10 mg ONCE ONE Administration Diphenhydramine HCl 25 mg 05/09/25 19:30 05/09/25 19:43 Diphenhydramine 50mg/Ml Vial IV 05/09/25 19:31 25 mg ONCE ONE Administration Sodium Chloride 1,000 mls @ 999 mls/hr 05/09/25 19:30 05/09/25 21:15 Sod Chlor 0.9% 1000ml Bag IV 05/09/25 20:30 Infused .Q1H1M ONE Infusion Magnesium Sulfate 2 gm in 50 mls @ 50 mls/hr 05/09/25 22:20 05/09/25 23:39 Magnesium Sulfate 2gm/50ml Premix IV 05/09/25 23:19 Infused ONCE ONE Infusion Iopamidol 75 ml 05/09/25 23:06 05/09/25 23:13 Iopamidol-370 (76%);100ml Bottle IV 05/09/25 23:07 75 ml ONCE ONE Administration Ketorolac Tromethamine 30 mg 05/09/25 19:30 05/09/25 19:43 Ketorolac 30mg/Ml Vial IV 05/09/25 19:31 30 mg ONCE ONE Administration Metoclopramide HCl 10 mg 05/09/25 19:30 05/09/25 19:44 Metoclopramide Hcl 10mg/2ml Vial IVP 05/09/25 19:31 10 mg ONCE ONE Administration Ondansetron HCl 4 mg 05/09/25 20:53 05/09/25 21:02 Ondansetron 4mg/2ml Vial IV 05/09/25 20:54 4 mg ONCE ONE Administration ORDERS Category Date Time Status CT abdomen pelvis w con Stat Cat Scan 05/09/25 21:44 Completed CBC w/Auto Diff [Complete Blood Count Auto Diff] Stat Lab 05/09/25 21:50 Completed CMP [Comprehensive Metabolic Panel] Stat Lab 05/09/25 21:50 Completed Lipase Stat Lab 05/09/25 21:50 Completed Urinalysis and Microscopic Stat Lab 05/09/25 22:30 Completed Medical Decision Narrative: In summary patient is a 59-year-old Fe who presents the emergency department for evaluation of migraine. Patient is hemodynamically stable upon arrival, afebrile. Unremarkable physical exam. Differential diagnosis includes migraine, mass, intracranial hemorrhage. Given long history of migraines as well as recent MRI we will start with migraine cocktail. initial inventions include Toradol, IV fluids, Reglan, Benadryl, Tylenol. Upon repeat evaluation patient does have acceptable resolution of pain. She does however express concern over not being able to tolerate p.o. for 3 days. Upon abdominal exam she does have some right lower quadrant abdominal tenderness. Will obtain labs and CT abdomen and pelvis. Signed out to Dr. Patino pending CT results. She does report headache has returned pending CT, will add decadron and magnesium. Luis Felipe Patino MD: I was consulted by the KAREN, and we discussed the complexity of the problems being addressed. I approve the treatment and management plan for this patient's care in the emergency department, thus performing a substantive portion of the medical decision making. At the time of handoff, patient's headache had improved some but worsened slightly. Decadron and magnesium were added. Patient was complaining of abdominal pain now in the right lower quadrant. CT abdomen pelvis and laboratory studies were ordered. Labs were studies are grossly unremarkable with white blood cell count normal at 7.1, hemoglobin normal, platelets normal. Electrolytes and kidney function within normal limits. Liver enzymes chronically mildly elevated with ALT of 151, AST of 57 but bilirubin normal at 0.8. Lipase normal at 175. At this time, patient's care was handed off to the oncoming physician, Dr. Ann, pending completion of her imaging Ann: Pulm assumption of care patient is stable and resting more comfortably. I agree with the assessment and plan from Dr. Patino. I reviewed labs which are not acutely actionable. UA negative for findings of infection though there is a small contamination with squamous cells. It does not demonstrate acute intra-abdominal pathology, see radiology read for final interpretation. Incidental findings were discussed with the patient and it was recommended that she follow-up outpatient for the vaginal cuff cyst. On reassessment she states she feels somewhat improved and is comfortable going home. I offered her GI referral which she would appreciate. I sent in prescription for Reglan since I am concerned that dysmotility from Ozempic may be contributing to her symptoms. She also requested a suppository antiemetic stating sometimes she is too sick to take anything by mouth. I sent in Phenergan suppository since she states she has tolerated Phenergan in the past. I explained to her that with her existing prescription for Compazine and now adding Phenergan and Reglan that it is very important to not take these medications together to avoid side effects and adverse reactions. Patient was given instructions on symptomatic monitoring and management, instructions for medication administration and use, follow up instructions, and return precautions for the emergency department. Patient indicated understanding and was discharged in stable condition. Critical Care <JANELL Love - Last Filed: 05/09/25 22:22> Critical Care Time Critical Care Time: No
[2025-05-09] MEDS: ONDANSETRON 4MG/2ML VIAL 4 MG IV (21:02)
--- NOTE | 2025-05-09 21:44 | CT_ITS ---
PROCEDURE INFORMATION: Exam: CT Abdomen And Pelvis With Contrast Exam date and time: 05/10/2025 12:02 AM Age: 59 years old Clinical indication: Nausea and vomiting; Abdominal pain; Additional info: Rlq tenderness, n/v TECHNIQUE: Imaging protocol: Computed tomography of the abdomen and pelvis with contrast. Radiation optimization: All CT scans at this facility use at least one of these dose optimization techniques: automated exposure control; mA and/or kV adjustment per patient size (includes targeted exams where dose is matched to clinical indication); or iterative reconstruction. Contrast material: ISOVUE; Contrast volume: 75 ml; Contrast route: IV; COMPARISON: MR ABDOMEN WO/W CON 10/11/2023 8:37 AM FINDINGS: Lungs: Mild bibasilar atelectasis. Liver: Mild fatty infiltration of the liver along the falciform ligament. Gallbladder and biliary ducts: Mild post cholecystectomy ectasia. Gallbladder is absent. Pancreas: Normal. No ductal dilation. Spleen: Normal. No splenomegaly. Adrenal glands: Normal. No mass. Kidneys and ureters: Normal. No hydronephrosis. Stomach and bowel: Mild sigmoid diverticulosis without diverticulitis. Appendix: Unremarkable appendix. Intraperitoneal space: Unremarkable. No free air. No significant fluid collection. Vasculature: Unremarkable. No abdominal aortic aneurysm. Lymph nodes: Unremarkable. No enlarged lymph nodes. Urinary bladder: Limited evaluation of the urinary bladder due to low urine volume. Reproductive: Status post hysterectomy. There are left adnexal cystic structures measuring up to 1.7 cm. No imaging follow-up is warranted for lesions of this size. There is a 12 mm cystic structure at the vaginal cuff on image 109 series 3 of doubtful clinical significance. Bones/joints: Postsurgical changes at L4-L5. Hardware appears intact. Soft tissues: Unremarkable. IMPRESSION: 1. No acute findings. 2. Unremarkable appendix.
[2025-05-09 22:01] LABS: Hematocrit 40.7 % (37.0-47.0); Hemoglobin 13.1 g/dL (12.2-16.2); Immature Granulocytes % 0.1 %; Mean Corpuscular HGB Conc 32.2 g/dL (31.8-35.4); Mean Corpuscular Hemoglobin 25.7 pg (27.0-31.2); Mean Corpuscular Volume 79.8 fl (81-99); Nucleated Red Blood Cells % 0 %; Platelet Count 290 K/mm3 (142-424); Red Blood Count 5.10 M/mm3 (4.20-5.40); Red Cell Distribution Width-SD 39.1 fL; White Blood Count 7.1 K/mm3 (4.8-10.8)
[2025-05-09 22:27] LABS: Alanine Aminotransferase 151 U/L (12-78); Albumin Level 4.2 g/dl (3.5-5.0); Albumin/Globulin Ratio 1.2 (1.1-1.8); Alkaline Phosphatase 94 U/L (38-126); Anion Gap 13.8 mEq/L (5-15); Aspartate Amino Transferase 57 U/L (14-36); Bilirubin,Total 0.8 mg/dl (0.2-1.3); Blood Urea Nitrogen 17 mg/dl (7-17); Calcium 9.2 mg/dl (8.4-10.2); Carbon Dioxide 28 mmol/L (22.0-30.0); Chloride 100 mmol/L (98-107); Creatinine Clearance Estimated 90 mL/min (50-200); Creatinine,Serum 0.90 mg/dl (0.52-1.04); Estimated Glomerular Filt Rate 64 ml/min (>60); GFR (African American) 77 ML/MIN (>60); Globulin 3.6 g/dL (1.3-3.2); Glucose 101 mg/dl (74-100); Lipase 175 U/L (23-300); Potassium 3.8 mmoL/L (3.5-5.1); Sodium 138 mmol/L (136-145); Total Protein,Serum 7.8 g/dl (6.3-8.2)
[2025-05-09] MEDS: DEXAMETHASONE 4MG/ML 5ML MDV 10 MG IV (22:39)
[2025-05-09] MEDS: MAGNESIUM SULFATE IN WATER 2 GM/50 ML PIGGYBACK IV (22:39)
[2025-05-09 22:54] LABS: Microscopic, Urine URINE MICROSCOPIC (MICROSCOPIC)
[2025-05-09 22:57] LABS: Color,Urine YELLOW (Yellow); Glucose,Urine (UA) Negative (Negative); Ketones,Urine 2+ (Negative); Leukocyte Esterase,Urine Negative (Negative); PH,Urine 5.5 (5.0-8.5); Protein,Urine Negative (Negative); Specific Gravity, Urine >= 1.030 (1.005-1.030); Urobilinogen,Urine 0.2 EU/dl (0.2)
[2025-05-09 23:13] VITALS: BP 153/70; PULSE 70; RESP 15; TEMP 36.7; O2SAT 100
[2025-05-09] MEDS: SODIUM CHLORIDE 0.9% 10ML SYR (RAD ONLY) 10 ML IV (23:13)
[2025-05-09] MEDS: IOPAMIDOL-370 (76%);100ML BOTTLE 75 ML IV (23:13)
[2025-05-09 23:29] LABS: Bilirubin,Urine 1+ (Negative)
[2025-05-09 23:30] LABS: Bacteria,Urine Trace /lpf
--- NOTE | 2025-05-09 23:47 | PC.NURSE ---
ed provider at the bedside updating pt on POC
[2025-05-09 23:58] VITALS: BP 148/77; PULSE 74; RESP 20; TEMP 36.7; O2SAT 99
== END 2025-05-10 00:03 | disposition home or self-care (01) ==
PROVIDERS: Physician Assistant; Emergency Provider Student in an Organized Health Care Education/Training Program; PCP Family Medicine
DX: R10.84 Generalized abdominal pain (principal); G43.909 Migraine, unspecified, not intractable, without status migrainosus; R11.2 Nausea with vomiting, unspecified; I10 Essential (primary) hypertension; E78.5 Hyperlipidemia, unspecified; E11.9 Type 2 diabetes mellitus without complications; Z79.85 Long-term (current) use of injectable non-insulin antidiabetic drugs
CPT/HCPCS: 74177; 80053; 81001; 83690; 85025; 96361; 96365; 96375; 99284; J0131; J1100; J1200; J1885; J2405; J2765; J3475; J7030; Q9967